=== PATIENT | male | born 1990 | race Two or more races ===

== ENCOUNTER 2021-01-28 15:41 | Outpatient (CLI) | payer OTHER, SELFPAY ==
--- NOTE | ~2021-01-28 | XR_ITS ---
EXAMINATION: XR toe 1st LT min 2V INDICATION: Left first toe pain TECHNIQUE: Three views of the left first toe are obtained. COMPARISON: None available FINDINGS: There is moderate osteoarthritis of the first metatarsophalangeal joint. No fracture is sergio ntified. The soft tissues are unremarkable. IMPRESSION: 1. Moderate osteoarthritis of the first metatarsophalangeal joint. Reviewed, dictated and finalized at location A.
--- NOTE | ~2021-01-28 | XR_ITS ---
EXAMINATION: XR knee RT 3V DATE: 01/28/2021 16:28 INDICATION: Right knee pain TECHNIQUE: Three views of the right knee were obtained. COMPARISON: 04/14/2011 FINDINGS: Alignment is normal. No fracture or osteochondral lesion. There is mild tricompartmental os teoarthritis characterized by tiny marginal osteophytes. No joint effusion/synovitis. Soft tissues a re unremarkable. IMPRESSION: 1. No acute osseous abnormality. Reviewed, dictated and finalized at location A.
== END 2021-01-28 15:42 ==
DX: S83.241A Other tear of medial meniscus, current injury, right knee, initial encounter (principal); X58.XXXA Exposure to other specified factors, initial encounter; M19.072 Primary osteoarthritis, left ankle and foot
CPT/HCPCS: 73562; 73660

== ENCOUNTER 2021-04-08 11:57 | Emergency (ER) | payer OTHER, SELFPAY ==
[2021-04-08 12:16] VITALS: BP 129/73; PULSE 70; RESP 16; TEMP 37.1; O2SAT 100
--- NOTE | 2021-04-08 12:21 | ED.MALEGU ---
HPI - Male Genitourinary General Chief complaint: Urogenital-Male Stated complaint: STD check Time Seen by Provider: 04/08/21 12:21 Source: patient and RN notes reviewed Mode of arrival: ambulatory Limitations: no limitations History of Present Illness HPI Narrative: 31-year-old male presents to the [facility] requesting an STD check for chlamydia, gonorrhea and trichomonas. patient states that he has no concern for anything else, Had testing before from the [facility] [place]. Patient first reports that I am here for my yearly check. Patient at first denied any symptoms. When he asked about treatment, This AD OPERATIONS ASSOCIATE explained we typically do not treat without dx or symptoms. Patient at that time stated that he had burning with urination and a cyst in his testicle. Patient reports that he was just discharged from the [facility] [place]. Patient was told when he was from the that he needed to follow-up for a cyst on his testicles and a brown area he was told was a mole. MD Complaint: dysuria Related Data Sexually active: Yes Home Medications Medication Instructions Recorded Confirmed vahea root extract 300 mg PO DAILY 04/08/21 04/08/21 Allergies Allergy/AdvReac Type Severity Reaction Status Date / Time No Known Allergies Allergy Verified 04/08/21 12:21 Review of Systems Review of Systems: All systems reviewed & are unremarkable except as noted in HPI and below Constitutional: Constitutional: Reports no additional constitutional complaints, Denies body ache(s) and Denies chills ENT: Reports system reviewed and no additional complaints, except as documented Cardiovascular: Cardiovascular: Reports no additional cardiovascular complaints Respiratory: Respiratory: Reports no additional respiratory complaints Gastrointestinal: Gastrointestinal: Reports no additional gastrointestinal complaints and Denies abdominal pain Genitourinary: Genitourinary: Reports as per HPI, Denies genital lesions, Denies genital pain, Reports dysuria, Denies flank pain, Denies scrotal swelling, Denies testicular pain, Denies urinary frequency, Denies urinary hesitancy and Denies urinary urgency Musculoskeletal: Musculoskeletal: Reports no additional musculoskeletal complaints and Denies back pain Integumentary/Breasts: Skin/Breast: Reports system reviewed and no additional complaints, except as docu Neurologic: Reports system reviewed and no additional complaints, except as documented Psychiatric: Psychiatric: Reports no additional psychiatric complaints Endocrine: Endocrine: Reports no additional endocrine complaints Allergic/Immunologic: Allergic/Immunologic: Reports no additional allergic/immunologic complaints PMFSH Comments At the time of my signature, I reviewed and agree with the nursing past medical, surgical, social, and family history. There is no relevant family history pertinent to the patient complaint. Exam Const: General: cooperative, healthy appearing, comfortable, no acute distress, well developed, alert and awake Nutritional Appearance: average body habitus Orientation/consciousness: patient oriented x3 Limitations: no limitations HENMT: Head: normal to inspection Ears: hearing grossly normal bilaterally General nose exam: Normal external nose present Face and sinus: normal facial exam Eyes: General: appearance normal, both eyes and all related structures Alignment and Position: alignment normal Neck: Neck: normal visual inspection, full ROM, no lymphadenopathy, no meningeal signs and trachea midline Chest: Chest palpation & inspection: normal inspection of the chest Resp: Effort & Inspection: normal respiratory effort and able to speak in complete sentences Cardio: Rate: regular rate Rhythm: regular rhythm GI: Inspection: normal to inspection GI Palp: No abdominal tenderness : Male General Exam: Yes normal external exam and No erythema Penis: Yes normal penis Scrotum: scrotum normal Testes: T
[2021-04-08] MEDS: cefTRIAXone 250 MG VIAL 500 MG IM (13:03)
[2021-04-08] MEDS: LIDOCAINE HCL 1% LOCAL INJ 20 ML VIAL IM (13:03)
== END 2021-04-08 13:27 | disposition home or self-care (01) ==
PROVIDERS: Emergency Provider Nurse Practitioner
DX: Z71.1 Person with feared health complaint in whom no diagnosis is made (principal); R30.0 Dysuria; J45.909 Unspecified asthma, uncomplicated
CPT/HCPCS: 81003; 87491; 87591; 87661; 96372; 99203; G0463; J0696

== ENCOUNTER 2022-07-10 13:34 | Emergency (ER) | payer BC, OTHER, SELFPAY ==
--- NOTE | ~2022-07-10 | XR_ITS ---
EXAMINATION: XR knee LT min 4V DATE: 07/10/2022 13:51 INDICATION: Left knee pain. Injury. TECHNIQUE: 4 views of left knee were obtained. COMPARISON: None. FINDINGS: Bone alignment is normal. No fracture. There is mild tricompartmental osteoarthritis charac terized by tiny osteophytes. No joint space narrowing. No knee joint effusion. IMPRESSION: 1. Mild left knee osteoarthritis. Reviewed, dictated and finalized at location A.
[2022-07-10 13:36] VITALS: BP 134/72; PULSE 76; RESP 16; TEMP 36.5; O2SAT 100
--- NOTE | 2022-07-10 13:55 | ED.LOWEXIN ---
HPI - Extremity Injury (Lower) General Chief Complaint: Extremity Injury, Lower Stated Complaint: left knee injury Time Seen by Provider: 07/10/22 13:55 History of Present Illness HPI Narrative: Patient is a 32-year-old male presenting with left knee pain. Patient states that he was cleaning the pool yesterday when he slipped and fell onto his left knee. States that he also hit his right thigh. States that he has been icing the knee since the injury but he continues to have significant pain. States that it is especially painful with ambulation. States that he took ibuprofen with minimal relief. Denies further injury or complaint. Related Data Home Medications Medication Instructions Recorded Confirmed No Home Medications 07/10/22 07/10/22 Allergies Allergy/AdvReac Type Severity Reaction Status Date / Time No Known Allergies Allergy Verified 07/10/22 13:37 Review of Systems Review of Systems: All systems reviewed & are unremarkable except as noted in HPI and below Exam Narrative: GENERAL: Well-appearing, well-nourished, and in no acute distress. HEAD: Normocephalic, atraumatic. EYES: PERRLA and EOMI. ENT: Nares clear, no rhinorrhea or epistaxis. Mucous membranes moist. NECK: Supple. CHEST: Clear to auscultation. No respiratory distress. HEART: Regular rate and rhythm. No murmur heard. Normal peripheral pulses. ABDOMEN: Soft, nontender, nondistended, normal active bowel sounds. EXTREMITIES: Normal range of motion. No edema. SKIN: Abrasions to L knee with associated tenderness NEURO: No focal deficits. Alert and oriented x3. PSYCH: Normal mood and affect. Course Vital Signs Vital signs: Vital Signs Temperature 97.7 F 07/10/22 13:36 Pulse Rate 76 07/10/22 13:36 Respiratory Rate 16 07/10/22 13:36 Blood Pressure 134/72 07/10/22 13:36 Pulse Oximetry 100 07/10/22 13:36 Temperature 97.7 F 07/10/22 13:36 Pulse Rate 76 07/10/22 13:36 Respiratory Rate 16 07/10/22 13:36 Blood Pressure 134/72 07/10/22 13:36 Pulse Oximetry 100 07/10/22 13:36 MDM - Extremity Injury (Lower) MDM Narrative Medical decision making narrative: Patient is a 32-year-old male presenting with left knee injury. Vitals within normal limits. Patient is well-appearing and in no acute distress. Exam is remarkable for some abrasions over the left knee with associated tenderness. X-ray shows no acute abnormalities. There is evidence of mild arthritis. Discussed appropriate supportive care with the patient. Patient states that he has crutches at home that he can use for the next several days. Advised follow-up with orthopedics as needed. Appropriate return precautions given. Patient discharged in stable condition. Critical Care Time Critical Care Time Critical Care Time: No Discharge Plan Discharge Clinical Impression: Knee pain, left, Abrasion of knee, left Patient Disposition: Home, Self-Care Condition: Stable Instructions: Antibiotic Form, Knee Pain (ED) Additional Instructions: Please alternate between Tylenol and ibuprofen for pain control. Prescriptions: No Action No Home Medications Follow-up/Referrals: Jim Orellana DO [Physician] - Sahil Austin MD [Physician] - UNKNOWN,DOCTOR [Non-Staff] - Stand Alone Forms: Work/School Release IP
== END 2022-07-10 14:20 | disposition home or self-care (01) ==
PROVIDERS: Emergency Provider Emergency Medicine
DX: S80.212A Abrasion, left knee, initial encounter (principal); M17.12 Unilateral primary osteoarthritis, left knee; W01.0XXA Fall on same level from slipping, tripping and stumbling without subsequent striking against object, initial encounter
CPT/HCPCS: 73564; 99283

== ENCOUNTER 2022-08-19 12:26 | Outpatient (CLI) | payer BC, OTHER, SELFPAY ==
--- NOTE | ~2022-08-19 | MR_ITS ---
EXAMINATION: MR knee LT wo con DATE: 08/19/2022 13:49 INDICATION: Left knee pain. TECHNIQUE: Magnetic resonance imaging (MRI) of the left knee was performed without intravenous contra st. Sequences included axial PD-weighted FS FSE, coronal PD-weighted FSE and PD-weighted FS FSE, sagi ttal PD-weighted FSE, and sagittal T2-weighted FS FSE. COMPARISON: Radiographs 07/10/2022 FINDINGS: Medial compartment: Medial meniscus is normal. Medial compartment cartilage is normal. Lateral compartment: Lateral meniscus is normal. Tibial cartilage is normal. There is full-thickness cartilage loss of fem oral condyle involving the central articular surface in an area measuring 10 x 5 mm with intra-articu lar osteophyte. Patellofemoral compartment: Patellar cartilage is normal. Trochlear cartilage is normal. Ligaments and tendons: The anterior and posterior cruciate ligaments are normal. There is edema around medial collateral lig ament, consistent with mild sprain. Lateral collateral ligament complex is normal. The patellar tendo n is normal. Fluid: There is a small knee joint effusion. There is trace fluid in a Small's cyst. IMPRESSION: 1. Mild sprain of medial collateral ligament (grade 1). 2. Focal severe chondrosis of lateral femoral condyle. 3. Small knee joint effusion. Reviewed, dictated and finalized at location A.
== END 2022-08-19 12:27 | disposition home or self-care (01) ==
PROVIDERS: Visit Provider Orthopaedic Surgery
DX: S83.412A Sprain of medial collateral ligament of left knee, initial encounter (principal); M22.2X2 Patellofemoral disorders, left knee; M25.462 Effusion, left knee
CPT/HCPCS: 73721

== ENCOUNTER 2023-07-21 11:30 | Outpatient (CLI) | payer BC, OTHER, SELFPAY ==
[2023-07-21 16:36] LABS: Basophils Absolute Auto 0.1 K/mm3 (0.0-0.1); Basophils Percent Auto 1.1 % (0.2-1.2); Eosinophils Absolute Auto 0.3 K/mm3 (0-0.3); Eosinophils Percent Auto 6.4 % (0-4.4); Hematocrit 46.7 % (42.0-52.0); Hemoglobin 15.6 g/dL (14.0-18.0); Immature Granulocyte Absolute 0.01 K/mm3 (0.00-0.031); Immature Granulocyte Percent A 0.2 % (0-0.5); Lymphocytes Absolute Auto 1.47 K/mm3 (0.9-3.2); Lymphocytes Percent Auto 31.3 % (18.3-44.2); Mean Corpuscular HGB Conc 33.4 g/dl (32-36); Mean Corpuscular Hemoglobin 31.3 pg (26-34); Mean Corpuscular Volume 93.8 fl (80-100); Mean Platelet Volume 11.1 fl (7.4-10.4); Monocytes Absolute Auto 0.5 K/mm3 (0.1-0.6); Monocytes Percent Auto 10.7 % (2.6-8.5); Neutrophils Absolute Auto 2.4 K/mm3 (1.3-6.7); Neutrophils Percent Auto 50.3 % (45.5-73.1); Platelet Count Result 218 k/mm3 (150-375); Red Blood Count 4.98 M/mm3 (4.6-6.20); Red Cell Distribution Width 12.8 % (11.5-14.5); White Blood Count 4.7 K/mm3 (4.5-10.0)
[2023-07-21 20:11] LABS: Alanine Aminotransferase 24 U/L (6-50); Albumin Level 4.5 g/dL (3.5-5.1); Alkaline Phosphatase 58 U/L (38-126); Anion Gap 4 mmol/L (8-16); Aspartate Amino Transferase 33 U/L (17-59); Bilirubin,Total 1.1 mg/dL (0.2-1.3); Blood Urea Nitrogen 13 mg/dL (9-20); Calcium 9.2 mg/dL (8.4-10.2); Carbon Dioxide 30 mmol/L (22-30); Chloride 103 mmol/L (98-107); Cholesterol 226 mg/dL (0-200); Estimated Glomerular Filt Rate > 60; Glucose 87 mg/dL (65-110); HDL Direct 53 mg/dL; Potassium 4.1 mmol/L (3.4-5.0); Sodium 137 mmol/L (137-145); Triglycerides 114 mg/dL (<150)
[2023-07-21 20:21] LABS: LDL Cholesterol Direct 128 mg/dL
[2023-07-25 17:32] LABS: Testosterone Free 127.2 pg/mL (35.0-155.0); Testosterone Total 563 ng/dL (250-1100)
== END 2023-07-21 11:31 | disposition home or self-care (01) ==
LOC: ANHGOSHLAB 11:33
PROVIDERS: Visit Provider Clinical Nurse Specialist
DX: F41.9 Anxiety disorder, unspecified (principal); R73.9 Hyperglycemia, unspecified; E55.9 Vitamin D deficiency, unspecified; Z13.228 Encounter for screening for other metabolic disorders; Z13.220 Encounter for screening for lipoid disorders; R53.83 Other fatigue
CPT/HCPCS: 36415; 80053; 80061; 83036; 84402; 84403; 84443; 85025

== ENCOUNTER 2023-09-22 12:05 | Emergency (ER) | payer BC, OTHER, SELFPAY ==
[2023-09-22 12:14] VITALS: BP 120/78; PULSE 68; RESP 16; TEMP 36.9; O2SAT 98
--- NOTE | 2023-09-22 12:18 | ED.URI ---
HPI - URI/Sore Throat General Chief Complaint: Upper Respiratory Infection Stated Complaint: COUGH/SOB Time Seen by Provider: 09/22/23 12:20 Source: patient and RN notes reviewed Mode of arrival: ambulatory Limitations: no limitations History of Present Illness HPI Narrative: 33-year-old male presents with concern for productive barking cough for 3 days. Reports history of asthma, he last used his inhaler overnight. He reports he has had some nasal congestion rhinorrhea as well. MD elicited complaint: cough Related Data Home Medications Medication Instructions Recorded Confirmed albuterol sulfate 90 mcg/actuation 1 puff inhalation Q4H PRN Wheezing 09/13/23 09/22/23 aerosol inhaler Allergies Allergy/AdvReac Type Severity Reaction Status Date / Time morphine Allergy Mild Nausea Verified 09/22/23 12:12 mushrooms Allergy Unknown unknown Uncoded 09/22/23 12:12 Review of Systems Review of Systems: CONSTITUTIONAL: Denies malaise, chills, sweats, or fever. EYES: Denies visual changes, redness, or discharge. ENT: Reports rhinorrhea, congestion. Denies sinus pain, otalgia and sore throat. CARDIOVASCULAR: Denies chest pain, palpitations, or edema. RESPIRATORY: Reports barking cough. Denies dyspnea. GASTROINTESTINAL: Denies abdominal pain, nausea, vomiting, diarrhea SKIN: Denies rash or itching. MUSCULOSKELETAL: Denies myalgia. NEUROLOGIC: Denies headache. All systems reviewed & are unremarkable except as noted in HPI and below PMFSH Past Medical History Medical History Anxiety Asthma Sprain of medial collateral ligament of left knee Surgical History Surgical History History of dental surgery History of foot surgery (~08/2020) History of repair of anterior cruciate ligament of right knee Family History Family History Sibling Cancer Depression Mother Depression Other Brain aneurysm Social History Social History Smoking status: Never smoker Alcohol intake: current Alcohol use details: Occasionally Substance use: never Substance use type: does not use Lack of Transportation: No Lack of Food: Never True Current Housing: I Have Housing Concerned About Future Housing: No Difficulty Paying Gas/Electric Bills: No Difficulty Paying for Meds: No Currently Unemployed: No Education: Bachelor's Degree Difficulty w/ Childcare or Family Care: No Occupation/Education: occupation Gender identity (if verbalized by the patient): Male Comments At time of signature, agree with nursing past medical, surgical, social and family history. There is no relevant family history pertinent to the presenting complaint Exam Narrative: GENERAL: Well-appearing, well-nourished, and in no acute distress. HEAD: Normocephalic EYES: PERRLA, conjunctivae clear ENT: Nares clear, turbinates edematous and erythematous, clear discharge. Mucous membranes moist. TM pearly galarza with sharp light reflex bilaterally; no tragal tenderness. Oropharynx not erythematous without lesions. Tonsils not enlarged and without exudate, no drooling, no hoarseness, no trismus, uvula midline. NECK: Supple. No lymphadenopathy CHEST: Clear to auscultation, breath sounds equal. No wheezing, rhonchi, rales, or stridor. No respiratory distress, speaks in full sentences. HEART: Regular rate and rhythm. No murmur heard. SKIN: Warm, dry, no rash. NEURO: Alert and oriented x3. PSYCH: Normal mood and affect Course Course Emergency Course: Patient is aware of diagnosis, understands and agrees to treatment plan. Anticipatory guidance given. Patient agrees to follow-up as directed and is aware of reasons to seek care at the emergency department. Portions of this record may have been created with voice recogni
== END 2023-09-22 12:31 | disposition home or self-care (01) ==
PROVIDERS: Emergency Provider Nurse Practitioner; PCP Clinical Nurse Specialist
DX: J40 Bronchitis, not specified as acute or chronic (principal); J45.909 Unspecified asthma, uncomplicated
CPT/HCPCS: 99213; G0463

== ENCOUNTER → 2023-09-29 08:11 | Outpatient (CLI) | payer BC, OTHER, SELFPAY ==
--- NOTE | ~2023-09-29 | MR_ITS ---
MRA HEAD History: Headache Technique: 3D time of flight MRA of the head is performed. COMPARISON: 02/04/2013 Findings: The right and left distal vertebral arteries and the basilar and posterior cerebral arterie s are normal. Right and left distal internal carotid arteries and anterior and middle cerebral arteri es are normal. There is no aneurysm, stenosis, or occlusion. Impression: No occlusion, stenosis, or aneurysm. Reviewed, dictated and finalized at location M. H PATTERN MAKER Impression: No occlusion, stenosis, or aneurysm.
--- NOTE | ~2023-09-29 | MR_ITS ---
EXAMINATION: MR brain/brain stem wo con DATE: 09/29/2023 09:18 HEALTH CARE MARKETING MANAGER INDICATION: Headaches. Light sensitivity. TECHNIQUE: Magnetic resonance imaging (MRI) of the brain and brainstem was performed without intraven ous contrast. Sequences included sagittal and axial T1-weighted SE, axial diffusion-weighted FS SE, a xial T2*-weighted GRE, axial T2-weighted FLAIR Propeller, and axial T2-weighted Propeller. Apparent d iffusion coefficient (ADC) maps were created. COMPARISON: CT dated 12/27/2009 FINDINGS: There is metallic artifact anteriorly. The brain volume and ventricular system are within n ormal limits. The brain parenchymal signal intensity pattern and galarza/white matter is normal and the re is no evidence of hemorrhage, space occupying masses or infarctions. The flow signal voids of the major arterial structures about the [place] and within the madi r dural venous sinuses appear grossly unremarkable and patent. The seventh and eighth cranial nerve complexes are normal. The mid sagittal image demonstrates a normal craniovertebral junction and alke us callosum. The paranasal sinuses are grossly unremarkable. IMPRESSION: 1: Unremarkable MRI of the brain. No acute intracranial abnormality. Reviewed, dictated and finalized at location B. TH CARE MARKETING MANAGER
== END ==
PROVIDERS: PCP Clinical Nurse Specialist; Visit Provider Clinical Nurse Specialist
DX: R51.9 Headache, unspecified (principal); Z82.49 Family history of ischemic heart disease and other diseases of the circulatory system
CPT/HCPCS: 70544; 70551

== ENCOUNTER 2023-09-29 10:39 | Outpatient (CLI) | payer BC, OTHER, SELFPAY ==
--- NOTE | 2023-10-04 11:00 | WPDHOLTEREM ---
Holter/Event Monitor Holter/Event Monitor Date of procedure: 10/04/23 Holter/Event Procedure: 48 Hr Holter Monitor Diagnosis: Palpitations Indications: Palpitations Image/Tracing Quality: Good Finding: A total of 47 hours and 59 minutes was recorded and analyzed Underlying sinus rhythm with heart rate variability between 43 and 120 beats per minute with an average heart rate of 68 beats per minute. Low frequency ventricular ectopy totaling 17 beats. This consisted of 1 ventricular couplet, and isolated PVCs. No sustained or nonsustained runs of ventricular arrhythmia Low frequency supraventricular ectopy totaling 11 beats. These were all isolated premature atrial contractions. No atrial fibrillation, heart block or pauses. No patient triggered events recorded. Longest RR interval was 1.5 seconds. Conclusion: 1. Unremarkable 48 hour Holter monitor showing sinus rhythm with average heart rate 68 beats per minute 2. Low frequency of ventricular and supraventricular ectopy but without complex arrhythmia, heart block or pauses 3. no patient triggered events
== END 2023-09-29 10:40 | disposition home or self-care (01) ==
LOC: ANHCARD 10:42
PROVIDERS: PCP Clinical Nurse Specialist; Visit Provider Clinical Nurse Specialist
DX: R00.2 Palpitations (principal)
CPT/HCPCS: 93225; 93226

== ENCOUNTER 2023-11-09 12:46 | Emergency (ER) | payer BC, OTHER, SELFPAY ==
[2023-11-09 13:00] VITALS: BP 117/74; PULSE 70; RESP 16; TEMP 36.9; O2SAT 98
--- NOTE | 2023-11-09 13:16 | ED.URI ---
HPI - URI/Sore Throat General Chief Complaint: Upper Respiratory Infection Stated Complaint: COUGH/BODY ACHES/FEVER/NAUSEA Time Seen by Provider: 11/09/23 13:02 Source: patient and RN notes reviewed Mode of arrival: ambulatory Limitations: no limitations History of Present Illness HPI Narrative: Patient presents today complaining of 2 day history of chills, nausea, decreased appetite, cough, fever up to 101, sore throat, nasal congestion. He has been taking Tylenol and Benadryl with some relief. Related Data Home Medications Medication Instructions Recorded Confirmed albuterol sulfate 90 mcg/actuation 1 puff inhalation Q4H PRN Wheezing 09/13/23 11/09/23 aerosol inhaler Allergies Allergy/AdvReac Type Severity Reaction Status Date / Time morphine Allergy Mild Nausea Verified 11/09/23 12:56 mushrooms Allergy Unknown unknown Uncoded 09/22/23 12:12 Review of Systems Review of Systems: CONSTITUTIONAL: Denies body aches, or sweats.+ fever, chills EYES: Denies visual changes, redness, or discharge. ENT: Denies rhinorrhea, or otalgia.+ congestion, sore throat CARDIOVASCULAR: Denies chest pain, palpitations, or edema. RESPIRATORY: Denies dyspnea.+ cough GASTROINTESTINAL: Denies abdominal pain, vomiting, or diarrhea.+ nausea, decreased appetite GENITOURINARY: Denies dysuria or hematuria. SKIN: Denies rash, itching, or wounds. MUSCULOSKELETAL: Denies back pain, joint pain, or myalgia. NEUROLOGIC: Denies headache, numbness, tingling, or weakness. PSYCH: Denies depression or anxiety. [facility] Past Medical History Medical History Anxiety Asthma Sprain of medial collateral ligament of left knee Surgical History Surgical History History of dental surgery History of foot surgery (~08/2020) History of repair of anterior cruciate ligament of right knee Family History Family History Sibling Depression Mother Depression Other Brain aneurysm Social History Social History Smoking status: Never smoker Alcohol intake: current Alcohol use details: Occasionally Substance use: never Substance use type: does not use Lack of Transportation: No Lack of Food: Never True Current Housing: I Have Housing Concerned About Future Housing: No Difficulty Paying Gas/Electric Bills: No Difficulty Paying for Meds: No Currently Unemployed: No Education: Bachelor's Degree Difficulty w/ Childcare or Family Care: No Occupation/Education: occupation Gender identity (if verbalized by the patient): Male Comments At time of signature, I have reviewed and agree with nursing past medical, surgical, social and family history unless otherwise noted. Please see nursing chart for further information. There is no relevant family history pertinent to the presenting complaint Exam Narrative: GENERAL: Well-appearing, well-nourished, and in no acute distress. HEAD: Normocephalic, atraumatic. EYES: EOMI. No redness or drainage. Conjunctivae normal. ENT: Mucous membranes pink and moist. Nares mildly congested. No rhinorrhea. TMs normal bilaterally. Throat normal. Uvula midline. NECK: Normal AROM. Supple. No lymphadenopathy. CHEST: No respiratory distress. Clear to auscultation. HEART: Regular rate and rhythm. No murmur appreciated. EXTREMITIES: Normal range of motion. No edema. SKIN: Warm, dry, no rash. Capillary refill normal. Normal skin turgor. NEURO: No focal deficits. Alert and oriented x3. Gait steady. PSYCH: Normal affect. No signs of depression or anxiety. Course Course Level of Care: Express Care Visit Vital Signs Vital signs: Vital Signs Temperature 98.4 F 11/09/23 13:00 Pulse Rate 70 11/09/23 13:00 Respiratory Rate 16 11/09/23 13
== END 2023-11-09 13:30 | disposition home or self-care (01) ==
PROVIDERS: Emergency Provider Nurse Practitioner; PCP Clinical Nurse Specialist
DX: U07.1 COVID-19 (principal); J45.909 Unspecified asthma, uncomplicated
CPT/HCPCS: 87426; 87804; 99213; G0463

== ENCOUNTER 2024-05-13 10:10 | Outpatient (CLI) | payer BC, OTHER, SELFPAY ==
--- NOTE | ~2024-05-13 | US_ITS ---
EXAMINATION: US scrotum doppler DATE: 05/13/2024 10:35 INDICATION: N50.82 - Scrotal pain . TECHNIQUE: Grayscale and Doppler ultrasound images of the testes were obtained. COMPARISON: None. FINDINGS: The right testis measures 4.1 x 2.7 x 1.9 cm. The left testis measures 3.6 x 2.7 x 2.0 cm. No testicular mass. There is normal vascular flow to both testes. The right epididymis contains a 5 m m simple epididymal cyst with normal epididymal vascular flow. The left epididymis is normal with nor mal vascular flow. There is no varicocele or hydrocele. IMPRESSION: Unremarkable scrotal ultrasound findings. Reviewed, dictated and finalized at location K.
== END 2024-05-13 10:11 ==
LOC: GOSHIMG 10:10
PROVIDERS: PCP Clinical Nurse Specialist; Visit Provider Clinical Nurse Specialist
DX: N50.82 Scrotal pain (principal)
CPT/HCPCS: 76870; 93976

== ENCOUNTER 2024-05-31 10:10 | Emergency (ER) | payer BC, OTHER, SELFPAY ==
[2024-05-31 10:20] VITALS: BP 127/72; PULSE 75; RESP 18; TEMP 36.7; O2SAT 98
--- NOTE | 2024-05-31 11:31 | ED.URI ---
HPI - URI/Sore Throat General Chief Complaint: Upper Respiratory Infection Stated Complaint: CHEST PAIN/SOB/COUGH Time Seen by Provider: 05/31/24 11:24 Source: patient and RN notes reviewed Mode of arrival: ambulatory Limitations: no limitations History of Present Illness HPI Narrative: Patient presents today complaining of a intermittent shortness of breath, cough, upper chest discomfort. He has been using his albuterol inhaler, which does provide relief of all symptoms. Reports that he had some nausea, vomiting, chills a few days ago, but these symptoms have since resolved themselves. The respiratory symptoms started yesterday. History of asthma. Related Data Home Medications Medication Instructions Recorded Confirmed albuterol sulfate 90 mcg/actuation 1 puff inhalation Q4H PRN Wheezing 09/13/23 05/08/24 aerosol inhaler Allergies Allergy/AdvReac Type Severity Reaction Status Date / Time morphine Allergy Mild Nausea Verified 05/31/24 11:11 mushrooms Allergy Unknown unknown Uncoded 05/31/24 11:11 Review of Systems Review of Systems: CONSTITUTIONAL: Denies body aches, fever, chills, or sweats. EYES: Denies visual changes, redness, or discharge. ENT: Denies rhinorrhea, congestion, sore throat, or otalgia. CARDIOVASCULAR: Denies chest pain, palpitations, or edema. RESPIRATORY:+ cough, chest wall pain, shortness of breath GASTROINTESTINAL: Denies abdominal pain, nausea, vomiting, or diarrhea. GENITOURINARY: Denies dysuria or hematuria. SKIN: Denies rash, itching, or wounds. MUSCULOSKELETAL: Denies back pain, joint pain, or myalgia. NEUROLOGIC: Denies headache, numbness, tingling, or weakness. PSYCH: Denies depression or anxiety. [facility] Past Medical History Medical History Anxiety Asthma Sprain of medial collateral ligament of left knee Surgical History Surgical History History of dental surgery History of foot surgery (~08/2020) History of repair of anterior cruciate ligament of right knee Family History Family History Sibling Depression Mother Depression Other Brain aneurysm Social History Social History Smoking status: Never smoker Alcohol intake: current Alcohol use details: Occasionally Substance use: never Substance use type: does not use Lack of Transportation: No Lack of Food: Never True Current Housing: I Have Housing Concerned About Future Housing: No Difficulty Paying Gas/Electric Bills: No Difficulty Paying for Meds: No Currently Unemployed: No Education: Bachelor's Degree Difficulty w/ Childcare or Family Care: No Occupation/Education: occupation Gender identity (if verbalized by the patient): Male Comments At time of signature, I have reviewed and agree with nursing past medical, surgical, social and family history unless otherwise noted. Please see nursing chart for further information. There is no relevant family history pertinent to the presenting complaint Exam Narrative: GENERAL: Well-appearing, well-nourished, and in no acute distress. HEAD: Normocephalic, atraumatic. EYES: EOMI. No redness or drainage. Conjunctivae normal. ENT: Mucous membranes pink and moist. Nares clear. No rhinorrhea. TMs normal bilaterally. Throat normal. Uvula midline. NECK: Normal AROM. Supple. No lymphadenopathy. CHEST: No respiratory distress. Clear to auscultation. Upper chest discomfort with palpation HEART: Regular rate and rhythm. No murmur appreciated. EXTREMITIES: Normal range of motion. No edema. SKIN: Warm, dry, no rash. Capillary refill normal. Normal skin turgor. NEURO: No focal deficits. Alert and oriented x3. Gait steady. PSYCH: Normal affect. No signs of depression or anxiety. Course Co
== END 2024-05-31 11:38 | disposition home or self-care (01) ==
PROVIDERS: Emergency Provider Nurse Practitioner; PCP Clinical Nurse Specialist
DX: B34.9 Viral infection, unspecified (principal); J45.901 Unspecified asthma with (acute) exacerbation; J45.909 Unspecified asthma, uncomplicated
CPT/HCPCS: 99213; G0463

== ENCOUNTER 2024-08-16 08:35 | Outpatient (CLI) | payer BC, OTHER, SELFPAY ==
[2024-08-16 16:51] LABS: Basophils Percent Auto 0.9 % (0.2-1.2); Eosinophils Absolute Auto 0.3 K/mm3 (0-0.3); Eosinophils Percent Auto 5.4 % (0-4.4); Hemoglobin 16.3 g/dL (14.0-18.0); Immature Granulocyte Absolute 0.01 K/mm3 (0.00-0.031); Immature Granulocyte Percent A 0.2 % (0-0.5); Lymphocytes Absolute Auto 1.73 K/mm3 (0.9-3.2); Lymphocytes Percent Auto 37.4 % (18.3-44.2); Mean Corpuscular HGB Conc 33.3 g/dl (32-36); Mean Corpuscular Hemoglobin 31.4 pg (26-34); Mean Corpuscular Volume 94.4 fl (80-100); Mean Platelet Volume 11.6 fl (7.4-10.4); Monocytes Absolute Auto 0.4 K/mm3 (0.1-0.6); Monocytes Percent Auto 9.5 % (2.6-8.5); Neutrophils Absolute Auto 2.2 K/mm3 (1.3-6.7); Neutrophils Percent Auto 46.6 % (45.5-73.1); Platelet Count Result 242 k/mm3 (150-375); Red Blood Count 5.19 M/mm3 (4.6-6.20); White Blood Count 4.6 K/mm3 (4.5-10.0)
[2024-08-16 16:55] LABS: Add Urine Microscopic? NO; Appearance Urine Clear (Clear); Bilirubin Urine Negative (Negative); Blood Urine Negative (Negative); Color Urine Yellow (Yellow); Glucose Urine UA Negative (Negative); Ketones Urine Trace mg/dL (Negative); Leukocyte Esterase Ur Negative LEU/UL (Negative); Nitrate Urine Negative (Negative); Protein Urine Negative (Negative); Specific Grav Ur 1.023 (1.001-1.035)
[2024-08-16 17:12] LABS: Alanine Aminotransferase 23 U/L (6-50); Albumin Level 4.6 g/dL (3.5-5.1); Alkaline Phosphatase 67 U/L (38-126); Anion Gap 10 mmol/L (4-12); Aspartate Amino Transferase 29 U/L (17-59); Bilirubin,Total 1.2 mg/dL (0.2-1.3); Blood Urea Nitrogen 11 mg/dL (9-20); Calcium 9.5 mg/dL (8.4-10.2); Carbon Dioxide 27 mmol/L (22-30); Chloride 103 mmol/L (98-107); Cholesterol 227 mg/dL (0-200); Estimated Glomerular Filt Rate > 60; Glucose 73 mg/dL (65-110); HDL Direct 51 mg/dL; Sodium 140 mmol/L (137-145); Triglycerides 91 mg/dL (<150)
[2024-08-16 17:17] LABS: Vitamin D 25 Hydroxy 18.7 ng/mL
[2024-08-16 17:23] LABS: LDL Cholesterol Direct 123 mg/dL
== END 2024-08-16 08:36 | disposition home or self-care (01) ==
LOC: ANHGOSHLAB 08:36
PROVIDERS: PCP Clinical Nurse Specialist; Visit Provider Clinical Nurse Specialist
DX: Z13.220 Encounter for screening for lipoid disorders (principal); Z13.228 Encounter for screening for other metabolic disorders; N50.82 Scrotal pain; R00.2 Palpitations; E55.9 Vitamin D deficiency, unspecified; R73.9 Hyperglycemia, unspecified; F41.9 Anxiety disorder, unspecified
CPT/HCPCS: 36415; 80053; 80061; 81003; 82306; 84443; 85025

== ENCOUNTER 2024-10-08 15:14 | Emergency (ER) | payer BC, OTHER, SELFPAY ==
[2024-10-08 15:45] VITALS: BP 111/69; PULSE 106; RESP 16; TEMP 37.3; O2SAT 97
--- NOTE | 2024-10-08 16:23 | ED.GENADULT ---
HPI - General Adult General Chief complaint: Upper Respiratory Infection Stated complaint: flu like symptoms Time Seen by Provider: 10/08/24 16:20 Source: patient, RN notes reviewed and old records reviewed Mode of arrival: ambulatory Limitations: no limitations History of Present Illness HPI narrative: 34-year-old male who presents to [facility] with complaints of 2 day history of abdominal pain above his umbilicus and nausea and vomiting and diarrhea since yesterday. Patient reports he has not had a known fever does state some ear pain and some sinus drainage. Patient reports that his diarrhea has been watery. Patient reports that his pain is sharp and rates pain at 7/10. MD complaint: nause and vomiting diarrhea and abdominal pain Onset (ago): day(s) (2) Location: abdomen Severity scale (1-10): 7 Quality: aching and sharp Pain Consistency: intermittent Associated symptoms: nausea/vomiting and other (diarrhea) Related Data Home Medications ?Medication ?Instructions ?Recorded ?Confirmed ?Last Taken ?Type buspirone 10 mg tablet mg 10/08/24 Unknown History trazodone 50 mg tablet mg 10/08/24 Unknown History venlafaxine 37.5 mg mg PO 10/08/24 Unknown History capsule,extended release 24 hr venlafaxine 75 mg capsule,extended mg PO 10/08/24 Unknown History release 24 hr Allergies Allergy/AdvReac Type Severity Reaction Status Date / Time morphine Allergy Mild Nausea Verified 08/16/24 08:04 mushrooms Allergy Unknown unknown Uncoded 08/16/24 08:04 Review of Systems Review of Systems: CONSTITUTIONAL: Reports malaise, no chills, sweats, or fever. EYES: Denies visual changes, redness, or discharge. ENT: Reports rhinorrhea, congestion,no sinus pain, bilateral otalgia and no sore throat. CARDIOVASCULAR: Denies chest pain, palpitations, or edema. RESPIRATORY: Reports no cough.? Denies dyspnea. GASTROINTESTINAL:reports abdominal pain above his umbilicus, nausea, vomiting, diarrhea SKIN: Denies rash or itching. MUSCULOSKELETAL: Denies myalgia. NEUROLOGIC: Denies headache. All systems reviewed & are unremarkable except as noted in HPI and below PMFSH Past Medical History Medical History Anxiety Asthma Sprain of medial collateral ligament of left knee Surgical History Surgical History History of dental surgery History of foot surgery (~08/2020) History of repair of anterior cruciate ligament of right knee Family History Family History Sibling Depression Mother Depression Other Brain aneurysm Social History Social History Smoking status: Never smoker Alcohol intake: current Alcohol use details: Occasionally Substance use: never Substance use type: does not use Lack of Transportation: No Lack of Food: Never True Current Housing: I Have Housing Concerned About Future Housing: No Difficulty Paying Gas/Electric Bills: No Difficulty Paying for Meds: No Currently Unemployed: No Education: Bachelor's Degree Difficulty w/ Childcare or Family Care: No Occupation/Education: occupation Gender identity (if verbalized by the patient): Male Comments At time of signature, agree with nursing past medical, surgical, social and family history. There is no relevant family history pertinent to the presenting complaint Exam Narrative: GENERAL: Well-appearing, well-nourished, and in some acute distress. HEAD: Normocephalic EYES: PERRLA, conjunctivae clear ENT: Nares clear, turbinates edematous and erythematous, clear discharge. Mucous membranes moist. TM pearly galarza with dull light reflex bilaterally; no tragal tenderness. Oropharynx erythematous without lesions. Tonsils not enlarged and without exudate, no drooling, no hoarseness, no trismus, uvula midline. NECK: Supple. No lymphadenopathy CHEST: Clear to auscultation, breath sounds equal. No wheezing, rhonchi, rales, or stridor. No respiratory distress, speaks in full sentences.SAO2 97% on room air ABDOMEN: Pain to abdomen above umbilicus with some rebound tenderness,no rigidity, no distention, bowel sounds hypoactive but decreased. HEART: Regular rate and rhythm. No murmur heard. SKIN: Warm, dry, no rash. N noEURO: Alert and oriented x3. PSYCH: Normal mood and affect Course Course Emergency Course: Patient is aware of diagnosis, understands and agrees to treatment plan.? Anticipatory guidance given.? Patient agrees to follow-up as directed and is aware of reasons to seek care at the emergency department. Portions of this record may have been created with voice recognition software Level of Care: Express Care Visit Vital Signs Vital signs: Vital Signs Temperature 37.3 C 10/08/24 15:45 Pulse Rate 106 H 10/08/24 15:45 Respiratory Rate 16 10/08/24 15:45 Blood Pressure 111/69 10/08/24 15:45 Pulse Oximetry 97 10/08/24 15:45 Temperature 37.3 C 10/08/24 15:45 Pulse Rate 106 H 10/08/24 15:45 Respiratory Rate 16 10/08/24 15:45 Blood Pressure 111/69 10/08/24 15:45 Pulse Oximetry 97 10/08/24 15:45 Reviewed Transfer Transfered to: [facility] Transportation: Other (private car) Transfer rationale: abdominal pain rates pain 7/10 above umbilicus with associated nausea vomiting and diarrhea, negative flu and COVID tests Accepting physician: Dr Leung Transfer comments: To [facility] Emergency room per private car for further evaluation of abdominal pain, instructed NPO. Medical Decision Making MDM Narrative Medical decision making narrative: 1632 Call placed to the ED at [facility] ER with condition report, VS, wave testing results and PMH reviewed with Dr Leung. He is agreeable to accept patient for transfer. Differential Diagnosis Differential Diagnosis: abdominal pain, nausea vomiting diarrhea viral syndrome, gastritis, appendicitis, enteritis, bowel obstruction Medical Records Medical records reviewed: Yes I reviewed the external patient's medical records. Vital Signs Vital Signs: Vital Signs Temperature 37.3 C 10/08/24 15:45 Pulse Rate 106 H 10/08/24 15:45 Respiratory Rate 16 10/08/24 15:45 Blood Pressure 111/69 10/08/24 15:45 Pulse Oximetry 97 10/08/24 15:45 Temperature 37.3 C 10/08/24 15:45 Pulse Rate 106 H 10/08/24 15:45 Respiratory Rate 16 10/08/24 15:45 Blood Pressure 111/69 10/08/24 15:45 Pulse Oximetry 97 10/08/24 15:45 reviewed Lab Data Lab results reviewed: Yes I reviewed the patient's lab results. Lab results narrative: Covid antigen negative, Influenza A negative, Influenza B negative Labs: Lab Results 10/08/24 Range/Units 16:37 POC Influenza A Ag Negative (Negative) POC Influenza B Ag Negative (Negative) POC SARS CoV-2 Ag Negative (Negative) Critical Care Time Critical Care Time Critical Care Time: No Discharge Plan Discharge Clinical Impression: Abdominal pain, acute, Nausea vomiting and diarrhea Patient Disposition: Acute Care Hospital Condition: Stable Patient Language: Latvian Prescriptions: No Action venlafaxine 37.5 mg capsule,extended release 24hr PO venlafaxine 75 mg capsule,extended release 24hr PO trazodone 50 mg tablet buspirone 10 mg tablet albuterol sulfate 90 mcg/actuation HFA aerosol inhaler 2 inh inhalation Q4-6H PRN (Reason: shortness of breath or wheezing) Qty: 8.5 0RF fluticasone propionate [Flonase Allergy Relief] 50 mcg/actuation spray,suspension 1 spray intranasal Q12H Qty: 16 0RF Rx Instructions: administer into each nostril ondansetron 4 mg tablet,disintegrating 4 mg PO Q8H PRN (Reason: nausea and vomiting) Qty: 10 0RF Follow-up/Referrals: Ruth Bobo AUXILIARY POWER EQUIPMENT OPERATOR-C [Primary Care Provider] - Time of Disposition: 16:37 Quality Vivian Coma Scale Eyes: Open Verbal: Oriented and Alert Motor: Follows Commands Vivian Coma Total Score: 15
[2024-10-08 16:40] LABS: EDCOVIDSCREEN Negative (Negative); EDINFLUASCREEN Negative (Negative); EDINFLUBSCREEN Negative (Negative)
== END 2024-10-08 16:32 | disposition short-term general hospital (02) ==
LOC: EXPGOSH 15:19
PROVIDERS: Emergency Provider Registered Nurse; PCP Clinical Nurse Specialist
DX: K52.9 Noninfective gastroenteritis and colitis, unspecified (principal); Z79.899 Other long term (current) drug therapy; Z20.822 Contact with and (suspected) exposure to COVID-19
CPT/HCPCS: 87426; 87804; 99212; G0463

== ENCOUNTER 2024-10-08 16:55 | Emergency (ER) | payer BC, OTHER, SELFPAY ==
[2024-10-08] VITALS (8 sets, daily range): BP systolic 108–123; BP diastolic 69–75; PULSE 78–97; RESP 16–17; TEMP 36.5–37; O2SAT 96–100
--- NOTE | ~2024-10-08 | CT_ITS ---
EXAMINATION: CT abdomen pelvis w con DATE: 10/08/2024 21:08 INDICATION: Abdominal pain. TECHNIQUE: Computed tomography (CT) of the abdomen and pelvis was performed with 100 mL Omnipaque 350 intravenous contrast. Automated exposure control and iterative reconstruction technique were employe d. The dose-length product was 1031.49 mGy-cm. COMPARISON: None. FINDINGS: The visualized portions of the lung bases demonstrate mild atelectasis. No pleural effusion . The heart size is normal. No pericardial effusion. The liver, gallbladder, spleen, pancreas, adrena l glands, and kidneys are normal. The appendix is normal. There is wall thickening of loops of ileum, consistent with enteritis. There are no dilated loops of bowel. There are no pathologically enlarged lymph nodes. There is trace ascites. There is no significant stenosis of celiac axis, superior mesen teric artery, or inferior mesenteric artery. There is mild thoracic spondylosis. IMPRESSION: 1. Enteritis. Reviewed, dictated and finalized at location A. NING AND DOCUMENTATION SPECIALIST IMPRESSION: 1. Enteritis.
--- NOTE | 2024-10-08 17:14 | ECG_ITS ---
Test Date: 2024-10-08 17:26:01 Measurements Intervals [place] Rate: 89 P: 35 WA: 155 QRS: 16 QRSD: 103 T: 27 QT: 311 QTc: 380 Interpretive Statements SINUS RHYTHM No previous ECG available for comparison Electronically Signed On 10-09-2024 14:18:40 [employer] by Carole Fisher M.D.
[2024-10-08] MEDS: ONDANSETRON HCL ODT 4 MG TABLET PO (17:28)
[2024-10-08 17:52] LABS: Basophils Percent Auto 0.4 % (0.2-1.2); Eosinophils Percent Auto 0.1 % (0-4.4); Hematocrit 48.2 % (42.0-52.0); Hemoglobin 16.5 g/dL (14.0-18.0); Immature Granulocyte Absolute 0.03 K/mm3 (0.00-0.031); Immature Granulocyte Percent A 0.3 % (0-0.5); Lymphocytes Absolute Auto 0.75 K/mm3 (0.9-3.2); Lymphocytes Percent Auto 8.2 % (18.3-44.2); Mean Corpuscular HGB Conc 34.2 g/dl (32-36); Mean Corpuscular Volume 90.4 fl (80-100); Mean Platelet Volume 10.7 fl (7.4-10.4); Monocytes Absolute Auto 0.9 K/mm3 (0.1-0.6); Monocytes Percent Auto 9.9 % (2.6-8.5); Neutrophils Absolute Auto 7.4 K/mm3 (1.3-6.7); Neutrophils Percent Auto 81.1 % (45.5-73.1); Platelet Count Result 220 k/mm3 (150-375); Red Blood Count 5.33 M/mm3 (4.6-6.20); Red Cell Distribution Width 12.8 % (11.5-14.5); White Blood Count 9.1 K/mm3 (4.5-10.0)
[2024-10-08 18:05] LABS: Lactic Acid Reflex 1.3 mmol/L (0.7-2.0)
--- NOTE | 2024-10-08 18:06 | ED_ITS ---
HPI - Abdominal Pain General Chief Complaint: Abdominal Pain Stated Complaint: abd pain, sent from Time Seen by Provider: 10/08/24 17:59 Source: patient Mode of arrival: ambulatory Limitations: no limitations History of Present Illness HPI narrative: This is a 34 year old male who presents to the ED for chief complaint of abdominal pain with N/V/D beginning last night. He was seen by urgent care today and referred over here for the abdominal pain. Patient states that he does have recent travel from [place] and he did fly for this. States that symptoms started couple days ago with sinus congestion and bilateral ear pain. Since then he has developed diffuse abdominal pain, N/V/D. Describes the diarrhea as watery. Endorses subjective fevers and chills. Denies chest pain, shortness of breath, leg swelling, palpitations, headache, syncope. Related Data Home Medications ?Medication ?Instructions ?Recorded ?Confirmed ?Last Taken ?Type buspirone 10 mg tablet mg 10/08/24 Unknown History trazodone 50 mg tablet mg 10/08/24 Unknown History venlafaxine 37.5 mg mg PO 10/08/24 Unknown History capsule,extended release 24 hr venlafaxine 75 mg capsule,extended mg PO 10/08/24 Unknown History release 24 hr Allergies Allergy/AdvReac Type Severity Reaction Status Date / Time morphine Allergy Mild Nausea Verified 08/16/24 08:04 mushrooms Allergy Unknown unknown Uncoded 08/16/24 08:04 Review of Systems 2 Review of Systems: All systems as dictated in HPI PMFSH Past Medical History Medical History Anxiety Asthma Sprain of medial collateral ligament of left knee Surgical History Surgical History History of dental surgery History of foot surgery (~08/2020) History of repair of anterior cruciate ligament of right knee Family History Family History Sibling Depression Mother Depression Other Brain aneurysm Social History Social History Smoking status: Never smoker Alcohol intake: current Alcohol use details: Occasionally Substance use: never Substance use type: does not use Lack of Transportation: No Lack of Food: Never True Current Housing: I Have Housing Concerned About Future Housing: No Difficulty Paying Gas/Electric Bills: No Difficulty Paying for Meds: No Currently Unemployed: No Education: Bachelor's Degree Difficulty w/ Childcare or Family Care: No Occupation/Education: occupation Gender identity (if verbalized by the patient): Male Exam 2 Narrative: GENERAL: Well-appearing, well-nourished, and in no acute distress. HEAD: Normocephalic, atraumatic. EYES: PERRLA and EOMI. ENT: Nares clear, no rhinorrhea or epistaxis. Mucous membranes moist. Oropharynx without tonsillar hypertrophy exudate or other lesions. NECK: Supple. No adenopathy or masses. CHEST: No respiratory distress. Clear to auscultation. No wheezes rales or rhonchi HEART: Regular rate and rhythm. No murmur heard. Normal peripheral pulses. ABDOMEN: Notable right lower quadrant tenderness present. Mild other diffuse abdominal tenderness. Soft, nondistended, normal active bowel sounds. Neg flank tenderness. MSK: Normal range of motion. No edema. SKIN: Warm, dry, no rash. NEURO: Alert and oriented x4. No focal deficits. PSYCH: Normal mood and affect. Course Vital Signs Vital signs: Vital Signs Temperature 98.6 F 10/08/24 17:11 Pulse Rate 97 10/08/24 17:11 Respiratory Rate 17 10/08/24 17:11 Blood Pressure 123/71 10/08/24 17:11 Pulse Oximetry 97 10/08/24 17:11 Oxygen Delivery Room Air 10/08/24 17:11 Temperature 98.1 F 10/08/24 21:58 Pulse Rate 78 10/08/24 21:58 Respiratory Rate 16 10/08/24 21:58 Blood Pressure 109/75 10/08/24 21:58 Pulse Oximetry 100 10/08/24 21:58 Oxygen Delivery Room Air 10/08/24 17:11 MDM - Abdominal Pain MDM Narrative Medical decision making narrative: This is a 34-year-old male who presents to the ED for chief complaint of abdominal pain with N/V/D. Vitals are normal. Exam shows several areas of abdominal tenderness, however much worse to the right lower quadrant. Lab work shows normal CBC and CMP. Urinalysis is negative CT of the abdomen pelvis with IV contrast: IMPRESSION: 1. Enteritis. He was given Toradol and Zofran here with good relief of symptoms. Presentation most likely consistent with gastroenteritis. Patient will be discharged in stable condition. Supportive measures discussed and return precautions given. Patient is understanding and agreeable with plan for discharge with PCP follow-up. Lab Data 10/08/24 17:32 10/08/24 17:32 Labs: Lab Results 10/08/24 10/08/24 Range/Units 17:32 19:15 WBC 9.1 (4.5-10.0) K/mm3 RBC 5.33 (4.6-6.20) M/mm3 Hgb 16.5 (14.0-18.0) g/dL Hct 48.2 (42.0-52.0) % MCV 90.4 (80-100) fl MCH 31.0 (26-34) pg MCHC 34.2 (32-36) g/dl RDW 12.8 (11.5-14.5) % Plt Count 220 (150-375) k/mm3 MPV 10.7 H (7.4-10.4) fl Immature Gran % (Auto) 0.3 (0-0.5) % Neut % (Auto) 81.1 H (45.5-73.1) % Lymph % (Auto) 8.2 L (18.3-44.2) % [place] % (Auto) 9.9 H (2.6-8.5) % Eos % (Auto) 0.1 (0-4.4) % Baso % (Auto) 0.4 (0.2-1.2) % Lymph # (Auto) 0.75 L (0.9-3.2) K/mm3 [place] # (Auto) 0.9 H (0.1-0.6) K/mm3 Eos # (Auto) 0.0 (0-0.3) K/mm3 Baso # (Auto) 0.0 (0.0-0.1) K/mm3 Abs Immat Gran (auto) 0.03 (0.00-0.031) K/mm3 Absolute Neuts (auto) 7.4 H (1.3-6.7) K/mm3 Absolute Nucleated RBC 0.000 (0.0-0.012) K/mm3 Nucleated RBC % 0.0 (0.0-0.2) % PT 13.4 (11.1-14.7) Seconds INR 1.0 APTT 29.7 (22.3-36.8) Seconds Sodium 136 L (137-145) mmol/L Potassium 3.9 (3.4-5.0) mmol/L Chloride 102 (98-107) mmol/L Carbon Dioxide 26 (22-30) mmol/L Anion Gap 8 (4-12) mmol/L BUN 14 (9-20) mg/dL Creatinine 1.30 (0.7-1.3) mg/dL Estim Creat Clear Calc 85 ml/min Estimated GFR > 60 (59 - ) Glucose 100 (65-110) mg/dL Lactic Acid 1.3 (0.7-2.0) mmol/L Calcium 9.2 (8.4-10.2) mg/dL Total Bilirubin 0.9 (0.2-1.3) mg/dL AST 22 (17-59) U/L ALT 21 (6-50) U/L Alkaline Phosphatase 78 (38-126) U/L Troponin I < 0.012 (0.000-0.034) ng/mL Total Protein 8.0 (6.3-8.2) g/dL Albumin 4.7 (3.5-5.1) g/dL Lipase 46 (23-300) U/L Urine Color Dark yellow (Yellow) Urine Appearance Clear (Clear) Urine pH 5.5 (5.0-9.0) Ur Specific [place] 1.025 (1.001-1.035) Urine Protein Trace (Negative) mg/dL Urine Glucose (UA) Negative (Negative) mg/dL Urine Ketones Trace H (Negative) mg/dL Ur Blood (Man) Negative (Negative) Urine Nitrate Negative (Negative) Urine Bilirubin Negative (Negative) Urine Urobilinogen 0.2 (<2.0) mg/dL Add Ur Microanalysis Reviewed Leukocyte Esterase Rfl Negative (Negative) TRAVIS/UL Urine RBC 0-2 (0-2) /hpf Urine WBC 0-5 (0-3) /hpf Ur Squamous Epith Cells None seen (Few) /hpf Urine Bacteria None seen /hpf Urine Casts 3-5 Imaging Data Radiologist's impression: ITS Impressions Abdomen/Pelvis CT 10/08/24 21:08 IMPRESSION: 1. Enteritis. Discharge Plan Discharge Clinical Impression: Enteritis Patient Disposition: Home, Self-Care Condition: Stable Instructions: Antibiotic Form Additional Instructions: Your evaluated the ED today for abdominal pain and nausea with vomiting. Exam and workup today are reassuring. No acute findings on the CT scan other than inflamed intestines. Please stay well hydrated at home. This issue should resolve over the next several days. Use Zofran at home for nausea as needed. If you have any new or worsening symptoms please return to the ER for further evaluation. Patient Language: Bahraini Prescriptions: New ondansetron 4 mg tablet,disintegrating 4 mg PO Q8H PRN (Reason: nausea and vomiting) Qty: 10 0RF No Action venlafaxine 37.5 mg capsule,extended release 24hr PO venlafaxine 75 mg capsule,extended release 24hr PO trazodone 50 mg tablet buspirone 10 mg tablet albuterol sulfate 90 mcg/actuation HFA aerosol inhaler 2 inh inhalation Q4-6H PRN (Reason: shortness of breath or wheezing) Qty: 8.5 0RF fluticasone propionate [Flonase Allergy Relief] 50 mcg/actuation spray,suspension 1 spray intranasal Q12H Qty: 16 0RF Rx Instructions: administer into each nostril Follow-up/Referrals: Ruth Bobo, ELECTRIC ORGAN ASSEMBLER AND CHECKER-C [Primary Care Provider] - Time of Disposition: 21:26
[2024-10-08 18:08] LABS: Prothrombin Time 13.4 Seconds (11.1-14.7)
[2024-10-08 18:09] LABS: Partial Thromboplastin Time 29.7 Seconds (22.3-36.8)
[2024-10-08 18:17] LABS: Troponin I < 0.012 ng/mL (0.000-0.034)
[2024-10-08 18:19] LABS: Alanine Aminotransferase 21 U/L (6-50); Albumin Level 4.7 g/dL (3.5-5.1); Alkaline Phosphatase 78 U/L (38-126); Anion Gap 8 mmol/L (4-12); Aspartate Amino Transferase 22 U/L (17-59); Bilirubin,Total 0.9 mg/dL (0.2-1.3); Blood Urea Nitrogen 14 mg/dL (9-20); Calcium 9.2 mg/dL (8.4-10.2); Carbon Dioxide 26 mmol/L (22-30); Chloride 102 mmol/L (98-107); Estimated CRCL calculation 85 ml/min; Estimated Glomerular Filt Rate > 60; Glucose 100 mg/dL (65-110); Potassium 3.9 mmol/L (3.4-5.0); Sodium 136 mmol/L (137-145)
[2024-10-08 18:40] LABS: Lipase 46 U/L (23-300)
[2024-10-08] MEDS: KETOROLAC 30 MG/ML VIAL (*BKC) IV PUSH (19:13)
[2024-10-08 20:25] LABS: Add Urine Microscopic? YES; Appearance Urine Clear (Clear); Bacteria Urine None Seen /hpf; Bilirubin Urine Negative (Negative); Blood Urine Negative (Negative); Color Urine Dark Yellow (Yellow); Glucose Urine UA Negative (Negative); Ketones Urine Trace mg/dL (Negative); Leukocyte Esterase Ur Negative LEU/UL (Negative); Need Manual Microscopic Reviewed; Nitrate Urine Negative (Negative); Protein Urine Trace mg/dL (Negative); RBC Urine 0-2 /hpf (0-2); Specific Grav Ur 1.025 (1.001-1.035); Squamous Epithelial Cell Urine None Seen /hpf (Few); Urobilinogen Urine 0.2 mg/dL (<2.0); WBC Urine 0-5 /hpf (0-3); pH Urine 5.5 (5.0-9.0)
== END 2024-10-08 22:00 | disposition home or self-care (01) ==
PROVIDERS: Registered Nurse; Emergency Provider Physician Assistant; PCP Clinical Nurse Specialist
DX: K52.9 Noninfective gastroenteritis and colitis, unspecified (principal); J45.909 Unspecified asthma, uncomplicated; F41.9 Anxiety disorder, unspecified; Z79.899 Other long term (current) drug therapy
CPT/HCPCS: 36415; 74177; 80053; 81001; 83605; 83690; 84484; 85025; 85610; 85730; 93005; 96374; 99284; A9270; J1885; Q9967

== ENCOUNTER 2024-11-05 09:27 | Outpatient (CLI) | payer BC, SELFPAY ==
--- NOTE | ~2024-11-05 | US_ITS ---
RIGHT UPPER QUADRANT ABDOMINAL ULTRASOUND (Doppler ultrasound interrogation techniques used as needed for this exam.) Ordering provider: THAD LazoP-C History: . R10.11 - Right upper quadrant pain . Comparison: None. FINDINGS: PANCREAS: Obscured. PORTAL VEIN: Hepatopedal flow demonstrated. LIVER: Normal size and echotexture. No focal hepatic lesions or perihepatic fluid collections are sergio ntified. BILIARY DUCTS: No intra or extrahepatic biliary dilation. Common bile duct measures 4 mm in diameter which is normal for patient's age. GALLBLADDER: Normal. No stones, sludge, gallbladder wall thickening or pericholecystic fluid. Negati ve sonographic Snyder's sign. FREE FLUID: None visualized within the upper abdomen. IMPRESSION: normal right upper quadrant ultrasound. Reviewed, dictated and finalized at location A. CARE TECHNICIAN
== END 2024-11-05 09:28 | disposition home or self-care (01) ==
LOC: GOSHIMG 09:27
PROVIDERS: PCP Internal Medicine; Visit Provider Clinical Nurse Specialist
DX: R10.11 Right upper quadrant pain (principal)
CPT/HCPCS: 76705

== ENCOUNTER 2024-12-10 08:06 | Emergency (ER) | payer BC, SELFPAY ==
--- NOTE | ~2024-12-10 | XR_ITS ---
EXAMINATION: XR ankle RT min 3V DATE: 12/10/2024 09:11 INDICATION: Right ankle injury and pain. TECHNIQUE: 4 views of right ankle were obtained. COMPARISON: Right ankle radiographs 01/11/2010 FINDINGS: Alignment is normal. No fracture. Joint spaces are normal. IMPRESSION: 1. No fracture. Reviewed, dictated and finalized at location A. D CUTTER IMPRESSION: 1. No fracture.
--- OUTSIDE RECORDS SUMMARY | 2024-12-10 08:10 | XMS_ITS | Patient Health Record ---
Author Organization [facility] [employer] Address [address] [place] [address] Care Team Providers Care Thermostat Maker Name Role Phone ALDO GASCA Primary Care Provider Francia Guillaume Unavailable [phone] DevinDelaney grullonna Unavailable [phone] Migration, Provider Unavailable Unavailable Allergies Allergen (clinical drug ingredient) Drug/Non Drug Allergy documented on EMR Reaction Allergy Type Onset Date Status Mushroom MUSHROOM (uncoded) Unknown Allergy 01/18/2024 Active morphine Morphine Unknown Drug Allergy 01/18/2024 Active Reason For Referral No Information Medications Medication SIG (Take, Route, Frequency, Duration) Notes Start Date End Date Status busPIRone HCl 10 MG 1 tablet Oral Twice a day for 90 days d/c 5 mg dose Active traZODone HCl 50 MG 1 tablet at bedtime Oral at bedtime for 90 days Active Albuterol Sulfate 0.63 MG/3ML Inhalation 01/18/2024 Active Venlafaxine HCl ER 37.5 MG 1 capsule with food Orally Once a day for 14 days 09/16/2024 Active Venlafaxine HCl ER 75 MG 1 capsule with food Orally Once a day for 30 days 09/16/2024 Active Social History Tobacco Use: Social History Observation Description Date Details (start date - stop date) Never Smoker NA - NA Sex Assigned At : Social History Observation Description Sex Assigned At Male Tobacco use other than smoking: Question Answer Notes Are you an other tobacco user? Yes s topped chew tobacco 09/15 Tobacco Control (Standard) Question Answer Notes Tobacco use: Nonsmoker Additional Findings: Tobacco user Chews tobacco Additional Findings: Tobacco non-user Ex-user of moist powdered tobacco AUDIT-C (Standard) Question Answer Notes Interpretation Positive Did you have a drink contain ing alcohol in the past year? Yes How often did you have six o r more drinks on one occasion in the past year? Less than monthly (1 point) How many drinks did you have on a typical day when you were drinking in the past year? 3 or 4 drinks (1 point) How often did you have a dri nk containing alcohol in the past year? Monthly or less (1 point) Problems Problem Type SNOMED Code ICD Code Onset Dates Problem Status W/U Status Risk Notes Problem [id number] Major depressive disorder, recurrent, mild (F33.0) 4 Active confirmed Problem 91189802 Generalized anxiety disorder (F41.1) 4 Active confirmed Problem Posttraumatic stress disorder (14926296) Post-traumatic stress disorder, chronic (F43.12) 4 Active confirmed Problem Insomnia disorder related to another mental disorder (03689273) Insomnia due to other mental disorder (F51.05) 4 Active confirmed Problem Panic disorder (581377686) Panic disorder [episodic paroxysmal anxiety] without agoraphobia (F41.0) 4 Active confirmed Problem 77224358 MDD (major depressive disorder), recurrent episode, moderate (F33.1) Active confirmed Vital Signs Heart Rate 64 /min 09/16/2024 Height-cm 187.96 cm 09/16/2024 Blood pressure diastolic 73 mm Hg 09/16/2024 Weight-kg 103.87 kg 09/16/2024 Height 74.00 in 09/16/2024 Blood pressure systolic 103 mm Hg 09/16/2024 Weight 229.0 lbs 09/16/2024 BMI 29.4 kg/m2 09/16/2024 Encounters Encounter Location Date Provider Diagnosis [employer] [address] [address] 08/02/[address] [facility] [facility] [address] [place] [address] 12/19/2023 Francia Villar Panic disorder [episodic paroxysmal anxiety] without agoraphobia F41.0 ; Generalized anxiety disorder F41.1 ; Insomnia due to other mental disorder F51.05 ; Major depressive disorder, recurrent, mild F33.0 and Post-traumatic stress disorder, chronic F43.12 [facility] [address] [facility] [address] [place] [address] 01/18/2024 Francia Villar Post-traumatic stress disorder, chronic F43.12 ; Insomnia due to other mental disorder F51.05 ; Major depressive disorder, recurrent, mild F33.0 ; Generalized anxiety disorder F41.1 and Panic disorder [episodic paroxysmal anxiety] without agoraphobia F41.0 [facility] [address] [facility] [address] [place] [address] 03/19/2024 Francia Villar [place] [id number] [facility] [address] [place] [address] 03/27/2024 Doris Devin Major depressive disorder, recurrent, mild F33.0 ; Generalized anxiety disorder F41.1 and Chronic post-traumatic stress disorder F43.12 [place] [id number] [address] 06/14/2024 Francia Villar Major depressive disorder, recurrent, mild F33.0 ; Generalized anxiety disorder F41.1 ; Panic disorder [episodic paroxysmal anxiety] without agoraphobia F41.0 ; Insomnia due to other mental disorder F51.05 and Post-traumatic stress disorder, chronic F43.12 [facility] [address] [address] 06/21/2024 Doriselbert Beltran Major depressive disorder, recurrent, mild F33.0 ; Generalized anxiety disorder F41.1 ; Post-traumatic stress disorder, chronic F43.12 and Panic disorder [episodic paroxysmal anxiety] without agoraphobia F41.0 [place] [address] [address] 08/20/2024 Francia Villar Major depressive disorder, recurrent, mild F33.0 ; Generalized anxiety disorder F41.1 ; Panic disorder [episodic paroxysmal anxiety] without agoraphobia F41.0 ; Insomnia due to other mental disorder F51.05 and Post-traumatic stress disorder, chronic F43.12 [place] [address] [address] 09/06/2024 Doris Devin Major depressive disorder, recurrent, mild F33.0 ; Generalized anxiety disorder F41.1 ; Post-traumatic stress disorder, chronic F43.12 and Panic disorder [episodic paroxysmal anxiety] without agoraphobia F41.0 [facility], [facility] [address] [place] [address] 09/16/2024 Francia Villar Generalized anxiety disorder F41.1 ; MDD (major depressive disorder), recurrent episode, moderate F33.1 ; Panic disorder [episodic paroxysmal anxiety] without agoraphobia F41.0 ; Insomnia due to other mental disorder F51.05 and Post-traumatic stress disorder, chronic F43.12 [facility], [facility] [address] [place] [address] 11/01/2024 Doris Beltran MDD (major depressive disorder), recurrent episode, moderate F33.1 ; Generalized anxiety disorder F41.1 ; Post-traumatic stress disorder, chronic F43.12 and Panic disorder [episodic paroxysmal anxiety] without agoraphobia F41.0 [facility] [address] [place] [address] 12/06/2024 Doris Beltran Major depressive disorder, recurrent, mild F33.0 ; Generalized anxiety disorder F41.1 and Panic disorder [episodic paroxysmal anxiety] without agoraphobia F41.0 [facility], [facility] [address] [place] [address] 01/12/2024 Provider Migration [facility], [facility] [address] [place] [address] 01/15/2024 Provider Migration [facility], [facility] [address] [place] [address] 02/12/2024 Provider Migration [facility], [facility] [address] [place] [address] 02/19/2024 Provider Migration [facility], [facility] [address] [place] [address] 03/09/2024 Provider Migration [facility], [facility] [address] [place] [address] 03/10/2024 [facility], [facility] [address] [place] [address] 07/08/2024 Francia Villar [facility], [facility] [address] [place] [address] 07/09/2024 Francia Villar [facility], [facility] [address] [place] [address] 08/19/2024 Francia Villar [facility], [facility] [address] [place] [address] 08/19/2024 Francia Villar [facility], [facility] [address] [facility] [address] [place] [address] 08/20/2024 Francia Villar [facility], [facility] [address] [place] [address] 10/11/2024 Francia Villar [facility], [facility] [address] [address] 10/17/2024 Francia Villar Assessments Encounter Date Diagnosis (ICD Code) Assessment Notes Treatment Notes Treatment Clinical Notes Section Notes 12/19/2023 Major depressive disorder, recurrent, mild (ICD-10 - F33.0) 12/19/2023 Generalized anxiety disorder (ICD-10 - F41.1) 12/19/2023 Post-traumatic stress disorder, chronic (ICD-10 - F43.12) 12/19/2023 Insomnia due to other mental disorder (ICD-10 - F51.05) 12/19/2023 Panic disorder [episodic paroxysmal anxiety] without agoraphobia (ICD-10 - F41.0) 01/18/2024 Major depressive disorder, recurrent, mild (ICD-10 - F33.0) 01/18/2024 Generalized anxiety disorder (ICD-10 - F41.1) 01/18/2024 Post-traumatic stress disorder, chronic (ICD-10 - F43.12) 01/18/2024 Insomnia due to other mental disorder (ICD-10 - F51.05) 01/18/2024 Panic disorder [episodic paroxysmal anxiety] without agoraphobia (ICD-10 - F41.0) 03/27/2024 Major depressive disorder, recurrent, mild (ICD-10 - F33.0) 03/27/2024 Generalized anxiety disorder (ICD-10 - F41.1) 06/14/2024 Major depressive disorder, recurrent, mild (ICD-10 - F33.0) Preventing Depression From Coming Back: Care Instructions material was published, Learning About Depression material was published, Learning About Depression Screening material was published, Learning About How to Get Help During a Mental Health Crisis material was published, Seasonal Affective Disorder: Care Instructions material was published 1. Mild recurrent major depression - discuss Buspar and educated on rx for depression and anxiety Buspar 5 mg twice a day - educated to take as prescribed to help anxiety and depression refer to therapy- scheduled obtain labs PCP schedule 07/16 consent to send record to PCP patient request 2. Generalized anxiety disorder -educated to take Buspar 5 MG TWICE A day with meal educated on rx patient for depression and anxiety and panicdiscuss and educated on Buspar for anxiety and panic and patient agrees improved sleep [facility] HX ALL RX [facility] TODAY 3. Panic disorder -refer to therapy Buspar 5 mg twice a day 4. Insomnia disorder related to another mental disorder - Trazodone 25-50 mg at bedtime for sleep - educated on rx - patient reported taken 25 mg sleeping improved 5. Chronic post-traumatic stress disorder -therapy scheduled - prefer female therapist 06/14/2024 Generalized anxiety disorder (ICD-10 - F41.1) Learning About Generalized Anxiety Disorder material was published, Generalized Anxiety Disorder: Care Instructions material was published, Learning About Transcranial Magnetic Stimulation (TMS) material was published, Learning About Anxiety Disorders material was published 1. Mild recurrent major depression - discuss Buspar and educated on rx for depression and anxiety Buspar 5 mg twice a day - educated to take as prescribed to help anxiety and depression refer to therapy- scheduled obtain labs PCP schedule 07/16 consent to send record to PCP patient request 2. Generalized anxiety disorder -educated to take Buspar 5 MG TWICE A day with meal educated on rx patient for depression and anxiety and panicdiscuss and educated on Buspar for anxiety and panic and patient agrees improved sleep [facility] HX ALL RX [place] TODAY 3. Panic disorder -refer to therapy Buspar 5 mg twice a day 4. Insomnia disorder related to another mental disorder - Trazodone 25-50 mg at bedtime for sleep - educated on rx - patient reported taken 25 mg sleeping improved 5. Chronic post-traumatic stress disorder -therapy scheduled - prefer female therapist 06/21/2024 Major depressive disorder, recurrent, mild (ICD-10 - F33.0) 08/20/2024 Major depressive disorder, recurrent, mild (ICD-10 - F33.0) Preventing Depression From Coming Back: Care Instructions material was published, Learning About Depression material was published, Learning About Depression Screening material was published, Learning About How to Get Help During a Mental Health Crisis material was published, Seasonal Affective Disorder: Care Instructions material was published 1. Mild recurrent major depression - discuss Buspar and educated on rx for depression and anxiety discuss [facility] and forms and need to be seen by provider/ walk in clinic [facility], therapy with in 72 hours of a mental health day of from job, ( noted in [employer] forms ) pateint took off work missed work- 07/25, 15, 17, 18, 25 in 08/15 for mental health days increase anxiety, will give letter for off work those days for job Buspar 10 mg twice a day - educated to take as prescribed to help anxiety and depression refer to therapy- scheduled obtain labs PCP schedule 07/16 consent to send record to PCP patient request 2. Generalized anxiety disorder -educated on all rx Increase Buspar 10 MG TWICE A day with meal educated on rx patient for depression and anxiety and panicdiscuss and educated on Buspar for anxiety and panic and patient agrees improved sleep [facility] ALL RX [place] TODAY 3. Panic disorder -refer to therapy Buspar 10 mg twice a day 4. Insomnia disorder related to another mental disorder - Trazodone 50 mg at bedtime for sleep - educated on rx - 5. Chronic post-traumatic stress disorder -therapy scheduled - prefer female therapist - see Anjali burnett 08/20/2024 Generalized anxiety disorder (ICD-10 - F41.1) Learning About Generalized Anxiety Disorder material was published, Generalized Anxiety Disorder: Care Instructions material was published, Learning About Transcranial Magnetic Stimulation (TMS) material was published, Learning About Anxiety Disorders material was published 1. Mild recurrent major depression - discuss Buspar and educated on rx for depression and anxiety discuss [facility] and forms and need to be seen by provider/ walk in clinic [facility], therapy with in 72 hours of a mental health day of from job, ( noted in [employer] forms ) pateint took off work missed work- 07/25, 15, 17, 18, 25 in 08/15 for mental health days increase anxiety, will give letter for off work those days for job Buspar 10 mg twice a day - educated to take as prescribed to help anxiety and depression refer to therapy- scheduled obtain labs PCP schedule 07/16 consent to send record to PCP patient request 2. Generalized anxiety disorder -educated on all rx Increase Buspar 10 MG TWICE A day with meal educated on rx patient for depression and anxiety and panicdiscuss and educated on Buspar for anxiety and panic and patient agrees improved sleep [facility] HX ALL RX [place] TODAY 3. Panic disorder -refer to therapy Buspar 10 mg twice a day 4. Insomnia disorder related to another mental disorder - Trazodone 50 mg at bedtime for sleep - educated on rx - 5. Chronic post-traumatic stress disorder -therapy scheduled - prefer female therapist - see Mary- [facility] 09/06/2024 Major depressive disorder, recurrent, mild (ICD-10 - F33.0) 09/16/2024 Generalized anxiety disorder (ICD-10 - F41.1) Learning About Generalized Anxiety Disorder material was published, Generalized Anxiety Disorder: Care Instructions material was published, Learning About Transcranial Magnetic Stimulation (TMS) material was published, Learning About Anxiety Disorders material was published 1. major depression - discuss rx options for depression and anxiety discuss and educated on Effexor ER 37.5 mg daily in am for 2 weeks and then increase Effexor ER 75 mg daily in am monitor B/P Buspar and educated on rx for depression and anxiety HX [facility] and forms and need to be seen by provider/ walk in clinic [facility], therapy with in 72 hours of a mental health day of from job, ( noted in [employer] forms 07/16/) pateint took off work missed work- 07/25, 15, 17, 18, 25 in 08/15 for mental health days increase anxiety, will give letter for off work those days for job Buspar 10 mg twice a day - educated to take as prescribed to help anxiety and depression refer to therapy- scheduled obtain labs PCP schedule 07/16 consent to send record to PCP patient request 2. Generalized anxiety disorder -educated on all rx Buspar 10 MG TWICE A day with meal educated on rx patient for depression and anxiety and panicdiscuss and educated on Buspar for anxiety and panic and patient agrees improved sleep [facility] HX ALL RX [place] TODAY 3. Panic disorder -refer to therapy Buspar 10 mg twice a day 4. Insomnia disorder related to another mental disorder - Trazodone 50 mg at bedtime for sleep - educated on rx - 5. Chronic post-traumatic stress disorder -therapy scheduled - prefer female therapist - see Mary- [facility] 09/16/2024 MDD (major depressive disorder), recurrent episode, moderate (ICD-10 - F33.1) 1. major depression - discuss rx options for depression and anxiety discuss and educated on Effexor ER 37.5 mg daily in am for 2 weeks and then increase Effexor ER 75 mg daily in am monitor B/P Buspar and educated on rx for depression and anxiety HX [facility] and forms and need to be seen by provider/ walk in clinic [facility], therapy with in 72 hours of a mental health day of from job, ( noted in [employer] forms 07/16/) pateint took off work missed work- 07/25, 15, 17, 18, 25 in 08/15 for mental health days increase anxiety, will give letter for off work those days for job Buspar 10 mg twice a day - educated to take as prescribed to help anxiety and depression refer to therapy- scheduled obtain labs PCP schedule 07/16 consent to send record to PCP patient request 2. Generalized anxiety disorder -educated on all rx Buspar 10 MG TWICE A day with meal educated on rx patient for depression and anxiety and panicdiscuss and educated on Buspar for anxiety and panic and patient agrees improved sleep [facility] H[facility] ALL RX [place] TODAY 3. Panic disorder -refer to therapy Buspar 10 mg twice a day 4. Insomnia disorder related to another mental disorder - Trazodone 50 mg at bedtime for sleep - educated on rx - 5. Chronic post-traumatic stress disorder -therapy scheduled - prefer female therapist - see Mary- [facility] 11/01/2024 MDD (major depressive disorder), recurrent episode, moderate (ICD-10 - F33.1) 12/06/2024 Major depressive disorder, recurrent, mild (ICD-10 - F33.0) 12/06/2024 Generalized anxiety disorder (ICD-10 - F41.1) 11/01/2024 Generalized anxiety disorder (ICD-10 - F41.1) 09/16/2024 Panic disorder [episodic paroxysmal anxiety] without agoraphobia (ICD-10 - F41.0) Panic Attacks: Care Instructions material was published 1. major depression - discuss rx options for depression and anxiety discuss and educated on Effexor ER 37.5 mg daily in am for 2 weeks and then increase Effexor ER 75 mg daily in am monitor B/P Buspar and educated on rx for depression and anxiety HX [facility] and forms and need to be seen by provider/ walk in clinic [facility], therapy with in 72 hours of a mental health day of from job, ( noted in [employer] forms ) pateint took off work missed work- 07/25, 15, 17, 18, 25 in 08/15 for mental health days increase anxiety, will give letter for off work those days for job Buspar 10 mg twice a day - educated to take as prescribed to help anxiety and depression refer to therapy- scheduled obtain labs PCP schedule 07/16 consent to send record to PCP patient request 2. Generalized anxiety disorder -educated on all rx Buspar 10 MG TWICE A day with meal educated on rx patient for depression and anxiety and panicdiscuss and educated on Buspar for anxiety and panic and patient agrees improved sleep [facility] HX ALL RX [place] TODAY 3. Panic disorder -refer to therapy Buspar 10 mg twice a day 4. Insomnia disorder related to another mental disorder - Trazodone 50 mg at bedtime for sleep - educated on rx - 5. Chronic post-traumatic stress disorder -therapy scheduled - prefer female therapist - see Anjali burnett 09/06/2024 Generalized anxiety disorder (ICD-10 - F41.1) 08/20/2024 Panic disorder [episodic paroxysmal anxiety] without agoraphobia (ICD-10 - F41.0) Panic Attacks: Care Instructions material was published 1. Mild recurrent major depression - discuss Buspar and educated on rx for depression and anxiety discuss [facility] and forms and need to be seen by provider/ walk in clinic [facility], therapy with in 72 hours of a mental health day of from job, ( noted in [employer] forms ) pateint took off work missed work- 07/25, 15, 17, 18, 25 in 08/15 for mental health days increase anxiety, will give letter for off work those days for job Buspar 10 mg twice a day - educated to take as prescribed to help anxiety and depression refer to therapy- scheduled obtain labs PCP schedule 07/16 consent to send record to PCP patient request 2. Generalized anxiety disorder -educated on all rx Increase Buspar 10 MG TWICE A day with meal educated on rx patient for depression and anxiety and panicdiscuss and educated on Buspar for anxiety and panic and patient agrees improved sleep [facility] HX ALL RX [place] TODAY 3. Panic disorder -refer to therapy Buspar 10 mg twice a day 4. Insomnia disorder related to another mental disorder - Trazodone 50 mg at bedtime for sleep - educated on rx - 5. Chronic post-traumatic stress disorder -therapy scheduled - prefer female therapist - see Anjali [facility] 06/21/2024 Generalized anxiety disorder (ICD-10 - F41.1) 06/14/2024 Panic disorder [episodic paroxysmal anxiety] without agoraphobia (ICD-10 - F41.0) Panic Attacks: Care Instructions material was published 1. Mild recurrent major depression - discuss Buspar and educated on rx for depression and anxiety Buspar 5 mg twice a day - educated to take as prescribed to help anxiety and depression refer to therapy- scheduled obtain labs PCP schedule 07/16 consent to send record to PCP patient request 2. Generalized anxiety disorder -educated to take Buspar 5 MG TWICE A day with meal educated on rx patient for depression and anxiety and panicdiscuss and educated on Buspar for anxiety and panic and patient agrees improved sleep [facility] ALL RX [place] TODAY 3. Panic disorder -refer to therapy Buspar 5 mg twice a day 4. Insomnia disorder related to another mental disorder - Trazodone 25-50 mg at bedtime for sleep - educated on rx - patient reported taken 25 mg sleeping improved 5. Chronic post-traumatic stress disorder -therapy scheduled - prefer female therapist 03/27/2024 Chronic post-traumatic stress disorder (ICD-10 - F43.12) 06/14/2024 Insomnia due to other mental disorder (ICD-10 - F51.05) 1. Mild recurrent major depression - discuss Buspar and educated on rx for depression and anxiety Buspar 5 mg twice a day - educated to take as prescribed to help anxiety and depression refer to therapy- scheduled obtain labs PCP schedule 07/16 consent to send record to PCP patient request 2. Generalized anxiety disorder -educated to take Buspar 5 MG TWICE A day with meal educated on rx patient for depression and anxiety and panicdiscuss and educated on Buspar for anxiety and panic and patient agrees improved sleep [facility] ALL RX [place] TODAY 3. Panic disorder -refer to therapy Buspar 5 mg twice a day 4. Insomnia disorder related to another mental disorder - Trazodone 25-50 mg at bedtime for sleep - educated on rx - patient reported taken 25 mg sleeping improved 5. Chronic post-traumatic stress disorder -therapy scheduled - prefer female therapist 06/21/2024 Post-traumatic stress disorder, chronic (ICD-10 - F43.12) Client focused on his trauma/anxiety triggers. Therapist actively listened to client and asked questions for clarification. Client reponded by giving examples. Therapist utilized a cognitive behavioral intervention by having client focus on his self-talk and helping him to explore strategies to improve and make his self-talk healthier. 08/20/2024 Insomnia due to other mental disorder (ICD-10 - F51.05) 1. Mild recurrent major depression - discuss Buspar and educated on rx for depression and anxiety discuss [facility] and forms and need to be seen by provider/ walk in clinic [facility], therapy with in 72 hours of a mental health day of from job, ( noted in [facility] forms 07/16/) pateint took off work missed work- 07/25, 15, 17, 18, 25 in 08/15 for mental health days increase anxiety, will give letter for off work those days for job Buspar 10 mg twice a day - educated to take as prescribed to help anxiety and depression refer to therapy- scheduled obtain labs PCP schedule 07/16 consent to send record to PCP patient request 2. Generalized anxiety disorder -educated on all rx Increase Buspar 10 MG TWICE A day with meal educated on rx patient for depression and anxiety and panicdiscuss and educated on Buspar for anxiety and panic and patient agrees improved sleep [facility] HX ALL RX [facility] TODAY 3. Panic disorder -refer to therapy Buspar 10 mg twice a day 4. Insomnia disorder related to another mental disorder - Trazodone 50 mg at bedtime for sleep - educated on rx - 5. Chronic post-traumatic stress disorder -therapy scheduled - prefer female therapist - see Mary- [facility] 09/06/2024 Post-traumatic stress disorder, chronic (ICD-10 - F43.12) 09/16/2024 Insomnia due to other mental disorder (ICD-10 - F51.05) 1. major depression - discuss rx options for depression and anxiety discuss and educated on Effexor ER 37.5 mg daily in am for 2 weeks and then increase Effexor ER 75 mg daily in am monitor B/P Buspar and educated on rx for depression and anxiety HX [facility] and forms and need to be seen by provider/ walk in clinic [facility], therapy with in 72 hours of a mental health day of from job, ( noted in [facility] forms ) pateint took off work missed work- 07/25, 15, 17, 18, 25 in 08/15 for mental health days increase anxiety, will give letter for off work those days for job Buspar 10 mg twice a day - educated to take as prescribed to help anxiety and depression refer to therapy- scheduled obtain labs PCP schedule 07/16 consent to send record to PCP patient request 2. Generalized anxiety disorder -educated on all rx Buspar 10 MG TWICE A day with meal educated on rx patient for depression and anxiety and panicdiscuss and educated on Buspar for anxiety and panic and patient agrees improved sleep [facility] HX ALL RX [place] TODAY 3. Panic disorder -refer to therapy Buspar 10 mg twice a day 4. Insomnia disorder related to another mental disorder - Trazodone 50 mg at bedtime for sleep - educated on rx - 5. Chronic post-traumatic stress disorder -therapy scheduled - prefer female therapist - see Anjali burnett 11/01/2024 Post-traumatic stress disorder, chronic (ICD-10 - F43.12) 12/06/2024 Panic disorder [episodic paroxysmal anxiety] without agoraphobia (ICD-10 - F41.0) 11/01/2024 Panic disorder [episodic paroxysmal anxiety] without agoraphobia (ICD-10 - F41.0) 09/16/2024 Post-traumatic stress disorder, chronic (ICD-10 - F43.12) Post-Traumatic Stress Disorder (PTSD): Care Instructions material was published 1. major depression - discuss rx options for depression and anxiety discuss and educated on Effexor ER 37.5 mg daily in am for 2 weeks and then increase Effexor ER 75 mg daily in am monitor B/P Buspar and educated on rx for depression and anxiety HX [facility] and forms and need to be seen by provider/ walk in clinic [facility], therapy with in 72 hours of a mental health day of from job, ( noted in [facility] forms 07/16/) pateint took off work missed work- 07/25, 15, 17, 18, 25 in 08/15 for mental health days increase anxiety, will give letter for off work those days for job Buspar 10 mg twice a day - educated to take as prescribed to help anxiety and depression refer to therapy- scheduled obtain labs PCP schedule 07/16 consent to send record to PCP patient request 2. Generalized anxiety disorder -educated on all rx Buspar 10 MG TWICE A day with meal educated on rx patient for depression and anxiety and panicdiscuss and educated on Buspar for anxiety and panic and patient agrees improved sleep [facility] HX ALL RX [place] TODAY 3. Panic disorder -refer to therapy Buspar 10 mg twice a day 4. Insomnia disorder related to another mental disorder - Trazodone 50 mg at bedtime for sleep - educated on rx - 5. Chronic post-traumatic stress disorder -therapy scheduled - prefer female therapist - [facility] 09/06/2024 Panic disorder [episodic paroxysmal anxiety] without agoraphobia (ICD-10 - F41.0) 08/20/2024 Post-traumatic stress disorder, chronic (ICD-10 - F43.12) Post-Traumatic Stress Disorder (PTSD): Care Instructions material was published 1. Mild recurrent major depression - discuss Buspar and educated on rx for depression and anxiety discuss [facility] and forms and need to be seen by provider/ walk in clinic [facility], therapy with in 72 hours of a mental health day of from job, ( noted in [facility] forms 07/16/) pateint took off work missed work- 07/25, 15, 17, 18, 25 in 08/15 for mental health days increase anxiety, will give letter for off work those days for job Buspar 10 mg twice a day - educated to take as prescribed to help anxiety and depression refer to therapy- scheduled obtain labs PCP schedule 07/16 consent to send record to PCP patient request 2. Generalized anxiety disorder -educated on all rx Increase Buspar 10 MG TWICE A day with meal educated on rx patient for depression and anxiety and panicdiscuss and educated on Buspar for anxiety and panic and patient agrees improved sleep [facility] HX ALL RX [place] TODAY 3. Panic disorder -refer to therapy Buspar 10 mg twice a day 4. Insomnia disorder related to another mental disorder - Trazodone 50 mg at bedtime for sleep - educated on rx - 5. Chronic post-traumatic stress disorder -therapy scheduled - prefer female therapist - [facility] 06/21/2024 Panic disorder [episodic paroxysmal anxiety] without agoraphobia (ICD-10 - F41.0) 06/14/2024 Post-traumatic stress disorder, chronic (ICD-10 - F43.12) Post-Traumatic Stress Disorder (PTSD): Care Instructions material was published 1. Mild recurrent major depression - discuss Buspar and educated on rx for depression and anxiety Buspar 5 mg twice a day - educated to take as prescribed to help anxiety and depression refer to therapy- scheduled obtain labs PCP schedule 07/16 consent to send record to PCP patient request 2. Generalized anxiety disorder -educated to take Buspar 5 MG TWICE A day with meal educated on rx patient for depression and anxiety and panicdiscuss and educated on Buspar for anxiety and panic and patient agrees improved sleep [facility] HX ALL RX [place] TODAY 3. Panic disorder -refer to therapy Buspar 5 mg twice a day 4. Insomnia disorder related to another mental disorder - Trazodone 25-50 mg at bedtime for sleep - educated on rx - patient reported taken 25 mg sleeping improved 5. Chronic post-traumatic stress disorder -therapy scheduled - prefer female therapist 06/14/2024 Other Buspirone Oral Tablet (BUSPIRONE - ORAL) material was published, Trazodone Oral Tablet (TRAZODONE - ORAL) material was published 1. Mild recurrent major depression - discuss Buspar and educated on rx for depression and anxiety Buspar 5 mg twice a day - educated to take as prescribed to help anxiety and depression refer to therapy- scheduled obtain labs PCP schedule 07/16 consent to send record to PCP patient request 2. Generalized anxiety disorder -educated to take Buspar 5 MG TWICE A day with meal educated on rx patient for depression and anxiety and panicdiscuss and educated on Buspar for anxiety and panic and patient agrees improved sleep [facility] HX ALL RX [place] TODAY 3. Panic disorder -refer to therapy Buspar 5 mg twice a day 4. Insomnia disorder related to another mental disorder - Trazodone 25-50 mg at bedtime for sleep - educated on rx - patient reported taken 25 mg sleeping improved 5. Chronic post-traumatic stress disorder -therapy scheduled - prefer female therapist 09/06/2024 Other Client focused on his panic attacks. Client states he has been tracking them and the activity just before having one. Therapist actively listened to client and asked questions for clarification. Therapist then utilized a solution focused intervention to help client explore strategies to minimize his panic attacks further (written reminders to improve self talk). 09/16/2024 Other Preventing Depression From Coming Back: Care Instructions material was published, Learning About Depression material was published, Learning About Depression Screening material was published, Learning About How to Get Help During a Mental Health Crisis material was published, Seasonal Affective Disorder: Care Instructions material was published 1. major depression - discuss rx options for depression and anxiety discuss and educated on Effexor ER 37.5 mg daily in am for 2 weeks and then increase Effexor ER 75 mg daily in am monitor B/P Buspar and educated on rx for depression and anxiety HX [facility] and forms and need to be seen by provider/ walk in clinic [facility], therapy with in 72 hours of a mental health day of from job, ( noted in [facility] forms 07/16/) pateint took off work missed work- 07/25, 15, 17, 18, 25 in 08/15 for mental health days increase anxiety, will give letter for off work those days for job Buspar 10 mg twice a day - educated to take as prescribed to help anxiety and depression refer to therapy- scheduled obtain labs PCP schedule 07/16 consent to send record to PCP patient request 2. Generalized anxiety disorder -educated on all rx Buspar 10 MG TWICE A day with meal educated on rx patient for depression and anxiety and panicdiscuss and educated on Buspar for anxiety and panic and patient agrees improved sleep [facility] HX ALL RX [place] TODAY 3. Panic disorder -refer to therapy Buspar 10 mg twice a day 4. Insomnia disorder related to another mental disorder - Trazodone 50 mg at bedtime for sleep - educated on rx - 5. Chronic post-traumatic stress disorder -therapy scheduled - prefer female therapist - see Anjali burnett 11/01/2024 Other Client focused on being triggered by his boss (whom he only has occasional encounters with). He also focused on wanteing to be a good father. Therapist actively listened to client and utilized a cognitive behavioral intervention to help client explore strategies to reduce the trauma triggers created by his boss and to reduce the volume of his voice (he has a deep voice which sometimes comes across as being loud). PHQ=10 moderate PING=12 moderate 12/06/2024 Other Client focused on wanting to have a son with this (sonnogram wasn't conclusive) because he already has 2 daughters. Therapist utilized a cognitive behavioral intervention to help him explore how his daughters may keep the family name when and if they get . He can teach them anything he would teach a boy. PHQ=11 moderate PING=5 mild Plan Of Treatment No Information Insurance Providers Payer Name Payer Address Payer Phone Subscriber Number Group Number Insured Name Patient Relationship to Insured Coverage Start Date Coverage End Date [employer] [address] [place] [address] [id number] CARLA POLO Self - patient is the insured [facility] [address] [place] [address] [id number] CARLA SHIRA Spouse - patient is the spouse of the insured [employer] [address] [place] [address] [id number] APURVA AUGIRREUS Self - patient is the insured Medical (General) History Medical History History ICD Code Problems: Chronic post-traumatic stress disorder Generalized anxiety disorder Insomnia disorder related to another men ibis disorder Mild recurrent major depression Panic disorder , Past Psychiatric History: Anxiety Disord er,PTSD undefined abdominal aortic aneurysm: No atrial fibrillation: No chronic fatigue syndrome: No essential tremor: No hyperlipidemia: No hypertension: No Parkinson's disease: No restless leg syndrome: No stroke: No subdural hematoma: No type 1 diabetes mellitus: No type 2 diabetes mellitus: No vitamin B12 deficiency: No vitamin D deficiency: No Surgical History Surgery Date(Month/Year) Other 03/16/2012 Any surgical history 07/27/2019
--- OUTSIDE RECORDS SUMMARY | 2024-12-10 08:11 | XMS_ITS ---
Author Organization [facility] [employer] Address [address] [place] [address] Care Team Providers Care Director Of Exhibits Name Role Phone ALDO GASCA Primary Care Provider Francia Guillaume Unavailable [phone] DevinDoris Unavailable [phone] REASON FOR VISIT Follow Up, anxiety, depression, panic attacks, trauma Medications Medication SIG (Take, Route, Frequency, Duration) Notes Start Date End Date Status Venlafaxine HCl ER 37.5 MG 1 capsule with food Orally Once a day for 14 days 09/16/2024 Active Albuterol Sulfate 0.63 MG/3ML Inhalation 01/18/2024 Active traZODone HCl 50 MG 1 tablet at bedtime Oral at bedtime for 90 days Active busPIRone HCl 10 MG 1 tablet Oral Twice a day for 90 days d/c 5 mg dose Active Venlafaxine HCl ER 75 MG 1 [...] past year? Monthly or less (1 point) Encounters Encounter Location Date Provider Diagnosis [facility] [employer] [facility] [address] [place] [address] 11/01/2024 Doris Beltran MDD (major depressiv e disorder), recurrent episode, moderate F33.1 ; Generalized anxiety disorder F41.1 ; Post-traumatic stress disorder, chronic F43.12 and Panic disorder [episodic paroxysmal anxiety] without agoraphobia F41.0 Assessments Encounter Date Diagnosis (ICD Code) Assessment Notes Treatment Notes Treatment Clinical Notes Section Notes 11/01/2024 MDD (major depressive disorder), recurrent episode, moderate (ICD-10 - F33.1) 11/01/2024 Generalized anxiety disorder (ICD-10 - F41.1) 11/01/2024 Post-traumatic stress disorder, chronic (ICD-10 - F43.12) 11/01/2024 Panic disorder [episodic paroxysmal anxiety] without agoraphobia (ICD-10 - F41.0) 11/01/2024 Other Client focused on being triggered [...] as being loud). PHQ=10 moderate PING=12 moderate Plan Of Treatment Next Appt Details Follow Up: 4 Weeks, Reason: therapy follow up Progress Notes * POLO AGUIRREDOB:1990 ( 34 yo M)Acc No.[id number]:11/01/2024 Patient: POLO AMARAL Provider: Jones BELTRAN LCSW :1990 A ge:34 Y S ex:Male Date:11/01/2024 Address:[address] [place], [place] [id number] Pcp:ALDO BAY ACCOUNT DEVELOPER-C Data: * Time Tracker: * Date Start Time End Time Duration User Type Captured By Mode Notes 11/01/2024 10:00 AM 10:57 AM 00:57:00 Therapist Doris Beltranual * Chief Complaints: * 1 . Follow Up. 2. Anxiety. 3. Depression. 4. Panic attacks. 5. Trauma. * HPI: F unctional Status: Client is here today for psychotherapy to treat anxiety, depression, panic and trauma issues. Based on our session, I think the patient is making modelrate progress. At this time I do not recommend changes to the treatment plan. I so not think the patient poses significant risk of harm to self or others at this time. Discussed continued treatment with patient. D epression Screening: PING-7 (2018 Edition) F eeling nervous, anxious, or on edge?More than half the days, N ot being able to stop or control worrying M ore than half the days, W orrying too much about different things M ore than hafl the days, T rouble relaxing M ore than half the days, B eing so restless that it is hard to sit still M ore than half the days, B ecoming easily annoyed or irritable M ore than half the days, F eeling afraid as if something awful might happen N ot at all, T otal PING-7 Score 1 2, I f you checked any problems, how difficult have they made it for you to do your work, take care of things at home, or get along with other people? S omewhat difficult, I nterpretation of Total?(10 to 14) Moderate. C [place]-Suicide Severity Rating Scale: Suicide Risk (CSRS-screener) i n the past one month Have you wished you were or wished you could go to sleep and not wake up? N o, i n the past one month Have you actually had any thoughts of killing yourself? N o, H ave you ever done anything, started to do anything, or prepared to do anything to end your life? N o. D epression screening: PHQ-9 L ittle interest or pleasure in doing things M ore than half the days, F eeling down, depressed, or hopeless M ore than half the days, T rouble falling or staying asleep, or sleeping too much M ore than half the days, F eeling tired or having little energy M ore than half the days, P oor appetite or overeating N ot at all, F eeling bad about yourself or that you are a failure, or have let yourself or your family down N ot at all, T rouble concentrating on things, such as reading the newspaper or watching television M ore than half the days, M oving or speaking so slowly that other people could have noticed; or the opposite, being so fidgety or restless that you have been moving around a lot more than usual N ot at all, T houghts that you would be better off or of hurting yourself in some way N ot at all, T otal Score 1 0, I nterpretation M oderate Depression. I ntervention D epression Screening Findings P ositAnny garcia ollow-Up for Depression M [facility] treatment assessment, Patient follow-up to return when and if necessary, Suicide Risk Assessment Performed 0 11/01/2024 client denies plan or intent to harm himself,?Additional Evaluation for Depression P sychiatric interview and evaluation, N leandra of the standardized tool used for adult depression screening: [facility]? * Behavioral History: P ast psychiatric Hospitalization:No. H istory of suicidal attempt?:No. * Social History: T obacco Use: T obacco use other than smoking A re you an other tobacco user? Y es stopped chew tobacco 09/15. T obacco Control (Standard) T obacco use: N Jeanette celaya dditional Findings: Tobacco user C vanessa tobacco, A dditional Findings: Tobacco non-user E x-user of moist powdered tobacco. M igrated Social History: M igrated Social History: Alcohol Intake: Occasional 11/23/2023,Tobacco Years: Never smoker 11/23/2023. D rug/Alcohol: D rugs H ave you used drugs other than those for medical reasons in the past 12 months??No. A ARINA-C (Standard) D id you have a drink containing alcohol in the past year? Y es, H ow often did you have six or more drinks on one occasion in the past year? L ess than monthly (1 point), H ow many drinks did you have on a typical day when you were drinking in the past year? 3 or 4 drinks (1 point), H ow often did you have a drink containing alcohol in the past year? M onthly or less (1 point), I nterpretation P ositive. M iscellaneous: S afety issues A re there any firearms in the house? Y es. A dvance Care Planning?Are you your own decision-maker Y es, D o you have Power of General Maintenance Technician for Health or Medical? N o. S ocial History: H ousehold M arital Status: M arried, N umber of Adults in household: 2 , N umber of Children in Household: 2 , L evel of Education: N ot Finished College. * Medications: T aking busPIRone HCl 10 MG Tablet 1 tablet Oral Twice a day , Notes to Pharmacist: d/c 5 mg dose, Taking traZODone HCl 50 MG Tablet 1 tablet at bedtime Oral at bedtime , Taking Albuterol Sulfate 0.63 MG/3ML Nebulization Solution Inhalation , Taking Venlafaxine HCl ER 37.5 MG Capsule Extended Release 24 Hour 1 capsule with food Orally Once a day , Taking Venlafaxine HCl ER 75 MG Capsule Extended Release 24 Hour 1 capsule with food Orally Once a day , Medication List reviewed and reconciled with the patient * Examination: G eneral Examination: C lient is casually groomed and oriented X 3. Assessment: * Assessment: 1. M DD (major depressive disorder), recurrent episode, moderate - F33.1 (Primary) ?2. G eneralized anxiety disorder - F41.1 3 . P ost-traumatic stress disorder, chronic - F43.12 4 . P anic disorder [episodic paroxysmal anxiety] without agoraphobia - F41.0 S pecify :Src Diagnosis Name: Panic disorder [episodic paroxysmal anxiety] Plan: * Treatment: * Procedure Codes: 9 0837 PSYCHOTHERAPY W/PATIENT 60 MINUTES, 07861 BEHAV ASSMT W/SCORE & DOCD/STAND INSTRUMENT * Follow Up: 4 Weeks (Reason: therapy follow up) * Billing Information: * Visit Code: * Procedure Codes: 77080 PSYCHOTHERAPY W/PATIENT 60 MINUTES. 49134 BEHAV ASSMT W/SCORE & DOCD/STAND INSTRUMENT. * F WELLNESS OFFICER Sign off status: Completed Signatures: No Ad Hoc Signature Added true * Provider: Jones BELTRAN LCSW Date: 0 11/01/2024 Generated for Kathia jones/Rashard/Garcia on: 0 12/10/2024 08:10 AM CHIEF WELLNESS OFFICER History and Physical Notes * HPI (History of Present Illness) Category Sub-Category Detail Notes Category Not es Depression screening PHQ-9 Little inte rest or pleasure in doing things: More than half the days Feeling down, depressed, or hopeless: Mo re than half the days Trouble falling or staying a sleep, or sleeping too much: More than half the days Feeling tired or having little energy: M ore than half the days Poor appetite or overeating: Not at all Feeling bad about yourself o r that you are a failure, or have let yourself or your family down: Not at all Trouble concentrating on thi ngs, such as reading the newspaper or watching television: More than half the days Moving or speaking so slowly that other people could have noticed; or the opposite, being so fidgety or restless that you have been moving around a lot more than usual: Not at all Thoughts that you would be b zeinab off or of hurting yourself in some way: Not at all Total Score: 10 Interpretation: Moderate Depression Intervention Depression Screening Findings: P ositve Follow-Up for Depression: [facility] treatment assessment, Patient follow-up to return when and if necessary Suicide Risk Assessment Performed: 11/01 client denies plan or intent to harm himself Additional Evaluation for De pression: Psychiatric interview and evaluation Name of the standardized too l used for adult depression screening:: Patient Health Questionnaire (PHQ-9) Functional Status Client is here today for psychotherapy to treat anxiety, depression, panic and trauma issues. Based on our session, I think the patient is making modelrate progress. At this time I do not recommend changes to the treatment plan. I so not think the patient poses significant risk of harm to self or others at this time. Discussed continued treatment with patient. Depression Screening PING-7 (2018 Edition) Feeling nervous, anxious, or on edge: More than half the days Not being able to stop or control worryi ng: More than half the days Worrying too much about different things : More than hafl the days Trouble relaxing: More than half the day s Being so restless that it is hard to sit still: More than half the days Becoming easily annoyed or irritable: Mo re than half the days Feeling afraid as if something awful mary ht happen: Not at all Total PING-7 Score: 12 If you checked any problems, how difficult have they made it for you to do your work, take care of things at home, or get along with other people?: Somewhat difficult Interpretation of Total: (10 to 14) Mode rate [place]-Suicide Severity Rating Scale Suicide Risk (CSRS-screener) in the past one month Have you wished you were or wished you could go to sleep and not wake up?: No in the past one month Have y ou actually had any thoughts of killing yourself?: No Have you ever done anything, started to do anything, or prepared to do anything to end your life?: No Examination Category Sub-Category Detail Notes Category Not es General Examination Client i s casually groomed and oriented X 3
--- OUTSIDE RECORDS SUMMARY | 2024-12-10 08:11 | XMS_ITS | Continuity of Care Document ---
Author Name [facility] Organization [facility] Care Team Providers Care Manager Paid Name Role Phone [facility] Unavailable Unavailable Problems Problem Status Onset Date Classification Date Reported Comments Source Jaw pain 05/24/2020 05/25/2020 50 [facility] TMJ locking 05/24/2020 05/25/2020 50 [facility] Chest pain 11/30/2019 12/01/2019 50 [facility] Medications Medication Details Route Status Patient Instructions Ordering Provider Order Date Source Aluminum Hydroxide 40 MG/ML / Magnesium Hydroxide 40 MG/ML / Simethicone 4 MG/ML Oral Suspension [Mylanta] 5 mL, ORAL, QID, PRN for control of stomach acid, # 360 mL, 0 Refill(s), Acute Active 020 50 [facility] Cyclobenzaprine hydrochloride 5 MG Oral Tablet [Flexeril] = 1 Tab, ORAL, BID, PRN Muscle spasm, # 10 Tab, 0 Refill(s), Maintenance Active 018 50 [facility] Ondansetron 4 MG Disintegrating Tablet [Zofran] = 1 DT_Tab, ORAL, TID, PRN Nausea/Vomiti ng, allow tablet to dissolve on tongue, # 12 Tab, 0 Refill(s), Soft Stop Active 018 50 [facility] Promethazine Hydrochloride 12.5 MG Oral Tablet [Phenergan] = 1 Tab, ORAL, Q6H, PRN as needed for nausea/vomiti ng, # 12 Tab, 0 Refill(s), Maintenance, Pharmacy: [facility] #[id number] Active 017 50 [facility] dextromethorphan- promethazine 15 mg-6.25 mg/5 ml oral syrup 5 mL, ORAL, Q6H, PRN for cough, # 200 mL, 0 Refill(s), Maintenance Active 016 50 [facility] Ibuprofen 800 MG Oral Tablet = 1 Tab, ORAL, TID, PRN for pain, with food or milk, # 21 Tab, 0 Refill(s), Maintenance Active 016 50 [facility] Allergies, Adverse Reactions, Alerts Substance Category Reaction Severity Reaction type Status Date Reported Comments Source morphine Assertion Drug allergy Active 50 [facility] Aleve Assertion Drug allergy Active 50 [facility] Results Order Name Results Value Reference Range Date Interpretation Comments Source AutoDif f* Auto Neutrophil Percent 54.8 % 46.0 - 78.0 12/01 [facility] AutoDif f* Auto Neutrophil Absolute 2.3 K/mm3 1.4 - 7.2 12/01 [facility] AutoDif f* Auto Lymphocyte Percent 28.7 % 9.0 - 42.0 12/01 [facility] AutoDif f* Auto Lymphocyte Absolute 1.2 K/mm3 0.8 - 4.4 12/01 [facility] AutoDif f* Auto Monocyte Percent 10.0 % 0.0 - 10.0 12/01 [facility] AutoDif f* Auto Monocyte Absolute 0.4 K/mm3 0.2 - 1.6 12/01 [facility] AutoDif f* Auto Eosinophil Percent 5.5 % 0.0 - 7.0 12/01 [facility] AutoDif f* Auto Eosinophil Absolute 0.2 K/mm3 0.0 - 0.7 12/01 [facility] AutoDif f* Auto Basophil Percent 1.0 % 0.0 - 3.0 12/01 [facility] AutoDif f* Auto Basophil Absolute 0.0 K/mm3 0.0 - 0.2 12/01 [facility] AutoDif f* Auto NRBC % 0.2 % 12/01 [facility] CBC WBC 4.30 K/mm3 4.50 - 11.00 12/01 L [facility] CBC RBC 4.91 M/mm3 4.50 - 5.90 12/01 [facility] CBC HGB 15.4 gm/dL 13.5 - 17.5 12/01 [facility] CBC HCT 45.9 % 37.0 - 49.0 12/01 [facility] CBC MCV 93.4 fL 80.0 - 99.0 12/01 [facility] CBC MCH 31.4 pg 26.0 - 34.0 12/01 [facility] CBC MCHC 33.6 gm/dL 32.5 - 35.5 12/01 [facility] CBC RDW 13.1 % 11.5 - 14.5 12/01 [facility] CBC PLT 222 K/mm3 150 - 400 12/01 [facility] CBC MPV 9.9 fL 7.4 - 10.4 12/01 [facility] CMP Sodium Level 141 mmol/L 136 - 144 12/01 [facility] CMP Potassium Level 4.3 mmol/L 3.1 - 5.2 12/01 [facility] CMP Chloride Level 103 mmol/L 101 - 111 12/01 [facility] CMP CO2/Carbon Dioxide 30 mmol/L 22 - 32 12/01 [facility] CMP Anion Gap 8 mmol/L 5 - 15 12/01 [facility] CMP Glucose, Random 94 mg/dL 70 - 110 12/01 [facility] CMP BUN 12 mg/dL 8 - 19 12/01 [facility] CMP Creatinine 1.2 mg/dL 0.7 - 1.3 12/01 [facility] CMP BUN/Creat Ratio 10 15 - 24 12/01 L [facility] CMP Osmolality, Calculated 281 mOsm/L 275 - 295 12/01 [facility] CMP Calcium Level 10.2 mg/dL 8.9 - 10.3 12/01 [facility] CMP Total Protein 7.5 gm/dL 6.5 - 8.1 12/01 [facility] CMP Albumin Level 4.8 gm/dL 3.5 - 5.0 12/01 [facility] CMP Globulin Level 2.7 gm/dL 2.6 - 4.0 12/01 [facility] CMP A/G Ratio 1.8 1.5 - 3.0 12/01 NA [facility] CMP ALP 62 IntUni t/L 30 - 114 12/01 NA [facility] CMP ALT 22 IntUni t/L 14 - 63 12/01 NA [facility] AST 25 IntUni t/L 15 - 41 12/01 [facility] Bilirubin, Total 0.7 mg/dL 0.0 - 1.2 12/01 NA N-dynahw-j-benzo quinone imine (NAPQI), a metabolite of acetaminophen (paracetamol), may generate erroneously low results in samples for patients that have taken toxic doses of acetaminophen (paracetamol) [facility] CMP GFR - Non >60 mL/min /1.73m 2 >=60 12/01 NA GFR 60 or more [id number] Moderately [id number] Severely Apgmylj86 or less Kidney FailureEstimated GFR not accurate for persons <18 or >69 years old.Equation: 186 x (Serum Creat)*EXP(-1.15 4) x (Age)*EXP(-0.203 ) x (0.742 if female) x (1.210 if ) [facility] CMP GFR - >60 mL/min /1.73m 2 >=60 12/01 [facility] Trop Troponin I <0.01 ng/mL 0.00 - 0.05 12/01 NA A Troponin value of 0.06 ng/mL or greater is consistent with myocardial injury. Interpretation requires correlation with other clinical findings.Changin g values are more significant than a single elevated value in the diagnosis of acute ischemic necrosis. [facility] UACSIf UA - Source/Collect Type Urine Clean Cat 12/01 NA Specimen Type/Source obtained by Discern Expert [facility] UAIf UA - Appearance CLER Clear 12/01 NA [facility] UAIf UA - Color YEL 12/01 NA [facility] UAIf UA - pH 7.0 5.0 - 8.0 12/01 [facility] UACSIf UA - Specific [place] 1.011 1.005 - 1.025 12/01 NA [facility] UACSIf UA - Protein NEG mg/dL Negative 12/01 NA [facility] UACSIf UA - Glucose NEG mg/dL Negative 12/01 NA [facility] UACSIf UA - Ketones NEG Negative 12/01 NA [facility] UACSIf UA - Bilirubin NEG Negative 12/01 NA [facility] UACSIf UA - Blood NEG Negative 12/01 NA [facility] UACSIf UA - Urobilinogen <2.0 mg/dL 0.1 - 2.0 12/01 NA [facility] UACSIf UA - Nitrites NEG Negative 12/01 NA [facility] UACSIf UA - Leukocyte Esterase NEG Negative 12/01 NA [facility] UACSIf Urine Culture Y/N No 12/01 NA [facility] UACSIf UA - WBC 0 /HPF 0 - 5 12/01 NA [facility] UACSIf UA - RBC 0 /HPF 0 - 2 12/01 NA [facility] UACSIf UA - Bacteria NONE 12/01 NA [facility] UACSIf UA - Epithelials, Squamous 0 /HPF 12/01 NA [facility] UACSIf UA - Mucus RARE None 12/01 [facility] UDS VANNESSA UR - Amphetamines Scrn NEG Negative 12/01 NA [facility] UDS VANNESSA UR - Barbiturates Scrn NEG Negative 12/01 [facility] UDS VANNESSA UR - Benzodiazepines Scrn NEG Negative 12/01 [facility] UDS VANNESSA UR - Cannabinoids/THC Scrn NEG Negative 12/01 [facility] UDS VANNESSA UR - Cocaine Scrn NEG Negative 12/01 [facility] UDS VANNESSA UR - Methamphetamines Scrn NEG Negative 12/01 [facility] UDS VANNESSA UR - Methadone NEG Negative 12/01 NA [facility] UDS VANNESSA UR - Opiates Scrn NEG Negative 12/01 [facility] UDS VANNESSA UR - Oxycodone NEG Negative 12/01 NA [facility] UDS VANNESSA UR - Phencyclidine Scrn NEG Negative 12/01 NA [facility] UDS VANNESSA UR - Tricyclics Screen NEG Negative 12/01 NA [facility] UDS VANNESSA UR - Footnote See Note 12/01 NA Cut off concentrations for each drug class are:Amphetamines ................ ... 500 ng/mLBarbiturate s............... .... 200 ng/mLBenzodiazep joby............ .... 150 ng/mLCocaine.... ................ .... 150 ng/mLMethadone.. ................ .... 200 ng/mLMethampheta mines........... .... 500 ng/mLOpiates.... ................ .... 100 ng/mLOxycodone.. ................ .... 100 ng/mLPhencyclidi ne.............. ..... 25 ng/mLCannabinoid s/THC ............... 50 ng/mLTricyclic Antidepressants. ......300 ng/mLEcstacy (MDMA) is detected under Methamphetamines at a cut off of 1150 ng/mL. A negative result may not necessarily detect drug free urine. Negative results can be obtained when drug is present but below the cut off level of the test. Confirmation is available upon the request of the physician.If the specimen screen is positive, then Confirmation/Zeus ntitation by QC/MS or LC-MS/MS will be added to confirm result. Additional charges apply.Performed by Discern Expert. [facility] Diagnostic Reports Report Value Date Source TMJ Bilat TMJs 05/24/20 1617h. HISTORY:Dislocation. . COMPARISON: None. TECHNIQUE: 5 Vws. FINDINGS: Bones intact with unremarkableTMJ with motion. IMPRESSION: Negative TMJs. THANK YOU FOR YOUR REFERRAL Signed by: Anival Cruz on 05/24/2020 4:34 PM 05/24/2020 [facility] Chest 1 Vw EXAMINATION: Chest 1 Vw CLINICAL HISTORY: Chest pain. COMPARISONS: Chest radiograph dated 08/07/2018. TECHNIQUE: A single portable AP view of the chest was obtained. FINDINGS: The cardiomediastinal silhouette is within normal limits in size. The pulmonary vasculature is unremarkable. No focal airspace opacity, pneumothorax or pleural effusion is seen. The osseous structures are intact . IMPRESSION: No acute disease of the chest. Signed by: Lance Fisher on 12/01/2019 7:08 AM 12/01/2019 [facility] Consultation Notes Results Value Date Source ED Physician Notes Patient: BURTON AGUIRRE Age: 30 years Sex: MALE : 1990 Chief Complaint Woke up unable to bite down, slightly off speech. Right jaw pain. Mode of Arrival Walk-In History of Present Illness 30-year-old male with history of depression resistance to the emergency department with difficulty opening his right side of his jaw that started this morning. He has no history of seizures. [place] may have a dislocated jaw and shouldn't go to the emergency department. Review of Systems 14 point review systems is completely unremarkable except history of present illness. Physical Exam Triage Vital Signs T: 98.0 F HR: 69 RR: 18 BP: 121/81 SPO2: 98% O2 Delivery: Room air HT: 185.42 cm WT: 95.25 kg(Dose Calc Wt.) WT: 95.25 kg Constitutional: no distress, well appearing, well developed Head: atraumatic, normocephalic, nonasal discharge, moist mucosal membranes, right tmj locking and popping, FAROM of bilat jaw, Eyes: normalconjunctiva, normal sclera Neck: trachea midline, no tenderness with neck ROM, no lymphadenopathy, Cardiovascular: normal rate, regular rhythm, no murmur, no gallops, no cyanosis or pallor, no peripheral edema Respiratory: CTA, no rales, no rhonchi, no wheezing, non-labored respirations, normal air movement in lung valencia Gastrointestinal: soft, non-distended, no tenderness to palpation, no guarding, no rebound Musculoskeletal: no bony deformity, full ROM of major joints Neurological: oriented x4, awake, speech normal Skin: warm, dry, no rashes, no wounds Psychiatric: normal affect, good judgment ED Course Differential Diagnosis tmj locking, tmj syndrome, dislocation, Documents Reviewed reviewed nursing notes and prior ed documentation Diagnostics General Diagnostic Result Type: TMJ Bilat Result Date: May 24, 2020 16:23 PDT Reason For Exam: Dislocation REPORT: TMJs 05/24/20 1617h.HISTORY:Dislocation. .COMPARISON: None.TECHNIQUE: 5 Vws. FINDINGS: Bones intact with unremarkableTMJ with motion. IMPRESSION: Negative TMJs.THANK YOU FOR YOUR REFERRAL Signed by: Anival Cruz on 05/24/2020 4:34 PM Re-evaluation Counseled: Regarding diagnosis, Regarding diagnostic results, Regarding treatment plan. Results were reviewed with the patient. There was a discussion regarding the diagnosis and treatment plan and the fact that no etiology can be ruled in or out with complete certainty. All questions were answered prior. There was counseling regarding the important signs and symptoms that would warrant a return to the emergency department. MDM Supervising Physician in accordance with LATOYA: Miky Sepsis Attestation: At this time, patient does not appear to be septic. Nursing Attestation Note: Nursing documentation was reviewed by me, appropriate corrections are made in the chart. Pulse Oximetry:98% on RA Normal Dragon Dictation Attestation: This medical document was created using the [employer] Computerized Dictation System. Although this document has been carefully reviewed, there may still be some phonetic and/or typographical errors. These errors are purely grammatical due to imperfections in the software program and should not be construed in any way to compromise the substance of the patient s medical care during the visit 30-year-old male presents emergency department stating that his bite is normal alignment. He thinks his right jaw may be dislocated. He states that he woke up like this. On initial evaluation I tried to relocate the jaw by pushing posteriorly and inferiorly to no avail. X-rays were then ordered which shows no acute malalignment. Dr. jc and evaluated the patient and tried to also relocate the jaw by externally pushing posteriorly and counter rotating the right lower jaw. She also found no issues, he is able to fully range of motion his mouth his posterior molars to touch she just states that they're not the appropriate bite that he has. One more attempt was made by myself, then had him range of motion in his jaw which a pop occurred during then he stated that it was within normal. Believe based on history and physical exam it's more of a T-sheet [place] locking or syndrome not dislocations. 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 *Substance Abuse Screen Substance abuse in household: No. *Tobacco Use Screen Smoker in household: No. Household tobacco concerns: No. Tobacco Use: Never smoker. Family History no pertinent family history 05/24/2020 [facility] ED Physician Notes Patient: BURTON AGUIRRE Age: 30 years Sex: MALE : 1990 History of Present Illness 30-year-old male with history of depression resistance to the emergency department with difficulty opening his right side of his jaw that started this morning. He has no history of seizures. [place] that he may have a dislocated jaw and shouldn't go to the emergency department. Medical Screening exam has been initiated; ED work-up and stabilization is in process. Triage Vital Signs HT: 187.96 cm WT: 95.25 kg Past Medical History Active Problems No active problems Social History *Alcohol Screen Household alcohol concerns: No. *Substance Abuse Screen Substance abuse in household: No. *Tobacco Use Screen Smoker in household: No. Household tobacco concerns: No. Tobacco Use: Never smoker. Radiology Results Ordered Radiology TMJ Bilat - (05/24/2020 15:51 PDT) MDM Condition _ Disposition _ 05/24/2020 [facility] ED Physician Notes Patient: BURTON AGUIRRE Age: 29 years Sex: MALE : 1990 Chief Complaint CHEST PAIN Mode of Arrival Walk-In History of Present Illness 29 year old male presents for left sided chest pain. This pain was abrupt, severe and lasted 1 minute. It occurred while laying down. Last PO intake prior to pain was at approximately 1600. He does have history of anxiety and GERD. He reports increase in 'indigestion' for the past week. He did take a 'gas X' and Miralax yesterday for constipation. He did have bilious vomiting this afternoon after belching from GERD sx. Review of Systems Constitutional: nogeneralized weakness, no fever, no chills, no unintentional weight loss Eyes: no visual changes ENMT: no ear pain,no sore throat, no nasal congestion, no hoarseness Respiratory: no cough, no shortness of breath Cardiovascular: no chest pain, no palpitations, no lower extremity edema Gastrointestinal: no vomiting, no abdominal pain, no changes in bowel movements Genitourinary: no dysuria, no hematuria, no urinary frequency Musculoskeletal: no myalgias, no arthralgias Neurologic: no focal weakness, no numbness, no headaches Heme/Lymph: no bleeding tendency, no bruising tendency, no petechiae, no swollen nodes All other systems are negative. Physical Exam Triage Vital Signs T: 97.1 F HR: 59 RR: 18 BP: 135/63 SPO2: 97% O2 Delivery: Room air HT: 187.96 cm WT: 95.25 kg(Dose Calc Wt.) WT: 95.25 kg Constitutional: no distress, wellappearing, well developed Head: atraumatic, normocephalic, nonasal discharge, moist mucosal membranes Eyes: normal conjunctiva, normal sclera Neck: trachea midline, notenderness with neck ROM Cardiovascular: normal rate, regular rhythm, no murmur, no gallops, nocyanosis or pallor, noperipheral edema Respiratory: CTA, no rales, no rhonchi, nowheezing, non-labored respirations, normal air movement in lung valencia Gastrointestinal: soft, non-distended, notenderness to palpation, noguarding, no rebound Musculoskeletal: no bony deformity, full ROM of major joints Neurological: oriented x4, awake, speech normal Skin: warm, dry, no rashes, no wounds Psychiatric: normal affect, good judgment ED Course Differential Diagnosis myocarditis, pericarditis, pneumonia, anxiety, GERD, , costochondritis Documents Reviewed reviewed nursing notes and prior ed documentation Orders Al hydroxide/Mg hydroxide/simethicone (Mylanta), 30, mL, ORAL, NOW Diagnostics Ordered Radiology Chest 1 Vw - (11/30/2019 20:42 PST) Indication: Cough Read: No infiltrative process, no blunting costovertebral angle, no effusions, mediastinum is appropriate, Results: No acute cardiopulmonary abnormality Order Name: ECG 12 Lead - (CV) Date Performed: 11/30/2019 20:16:52 PST Status: Completed Impression: Rate: 56 , Sinus rhythm, no acute ST elevations or depressions, no new T wave abnormalities Re-evaluation Counseled: Regarding diagnosis, Regarding diagnostic results, Regarding treatment plan. Results were reviewed with the patient. There was a discussion regarding the diagnosis and treatment plan and the fact that no etiology can be ruled in or out with complete certainty. All questions were answered prior to discharge. There was counseling regarding the important signs and symptoms that would warrant a return to the emergency department. MDM Scribe Attestation: This document was scribed by JOHN Yoon Scribe for provider: Andres Shah PA-C Supervising Physician: Armen Pimentel MD Sepsis Attestation: At this time, patient does not appear to be septic. Nursing Attestation Note: Nursing documentation was reviewed by me, appropriate corrections are made in the chart. Pulse Oximetry:97% on RA Normal [employer] Dictation Attestation: This medical document was created using the [employer] Computerized Dictation System. Although this document has been carefully reviewed, there may still be some phonetic and/or typographical errors. 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 In individuals his age most likely diagnosis is to include substance use, anxiety, gastric reflux, Costochondritis. Troponin is negative so myocarditis less likely normal ECG. Laboratory shows no acute abnormalities such as electrolyte disturbances that may be leading to his chest pain or anemia. Patient is currently deemed safe to be discharged and follow up outpatient as needed Diagnosis 1. Chest pain (Chest pain, unspecified, R07.9) Condition Stable Disposition Discharge to Home Prescriptions Prescribed Medications 11/30/2019 22:38 PST Al hydroxide/Mg hydroxide/simethicone, 5 mL, ORAL, QID, PRN for control of stomach acid, # 360 mL, 0 Refill(s), Acute Patient Education GERD (Adult) Follow-Up Provider: Mick Garcia Date: Within 2-3 days, only if needed Address: [address] [place] [id number] [facility] (1) MSEI Information MSEI MD/INFANT LEAD TEACHER/PA Time Patient Seen face to face: Date and time not entered Past Medical History Active Problems No active problems Past Surgical History no pertinent past surgical history Allergies Aleve morphine Home Medications dextromethorphan-promethazine 15 mg-6.25 mg/5 ml oral syrup, 5 mL, ORAL, Q6H, PRN Flexeril 5 mg oral tablet, 5 mg, 1 Tab, ORAL, BID, PRN ibuprofen 800 mg oral tablet, 800 mg, 1 Tab, ORAL, TID, PRN Phenergan 12.5 mg oral tablet, 12.5 mg, 1 Tab, ORAL, Q6H, PRN Zofran ODT 4 mg oral tablet, disintegrating, 1 DT_Tab, ORAL, TID, PRN Social History *Alcohol Screen Household alcohol concerns: No. *Substance Abuse Screen Substance abuse in household: No. *Tobacco Use Screen Smoker in household: No. Household tobacco concerns: No. Tobacco Use: Never smoker. Family History no pertinent family history Lab Results Labs All 24H Lab Results Date VANNESSA UR - Amphetamines Scrn Negative - 11/30/19 20:42 PST [facility] - Barbiturates Scrn Negative - 11/30/19 20:42 PST [facility] UR - Benzodiazepines Scrn Negative - 11/30/19 20:42 PST [facility] UR - Cannabinoids/THC Scrn Negative - 11/30/19 20:42 PST [facility] UR - Cocaine Scrn Negative - 11/30/19 20:42 PST [facility] UR - Methadone Negative - 11/30/19 20:42 PST [facility] UR - Opiates Scrn Negative - 11/30/19 20:42 PST [facility] UR - Phencyclidine Scrn Negative - 11/30/19 20:42 PST [facility] UR - Tricyclics Screen Negative - 11/30/19 20:42 PST [facility] UR - Methamphetamines Scrn Negative - 11/30/19 20:42 PST [facility]ESSA UR - Footnote See Note 11/30/19 20:42 PST Auto NRBC % 0.2 % 11/30/19 21:20 PST GFR - Non >60 mL/min/1.73m2 11/30/19 21:20 PST GFR - >60 mL/min/1.73m2 11/30/19 21:20 PST Auto Neutrophil Percent 54.8 % 11/30/19 21:20 PST Auto Neutrophil Absolute 2.3 K/mm3 11/30/19 21:20 PST Auto Lymphocyte Percent 28.7 % 11/30/19 21:20 PST Auto Lymphocyte Absolute 1.2 K/mm3 11/30/19 21:20 PST Auto Monocyte Percent 10.0 % 11/30/19 21:20 PST Auto Monocyte Absolute 0.4 K/mm3 11/30/19 21:20 PST Auto Basophil Percent 1.0 % 11/30/19 21:20 PST Auto Basophil Absolute 0.0 K/mm3 11/30/19 21:20 PST Auto Eosinophil Percent 5.5 % 11/30/19 21:20 PST Auto Eosinophil Absolute 0.2 K/mm3 11/30/19 21:20 PST VANNESSA UR - Oxycodone Negative 11/30/19 20:42 PST Urine Culture Y/N No 11/30/19 20:42 PST WBC 4.30 K/mm3 (LOW) 11/30/19 21:20 PST RBC 4.91 M/mm3 11/30/19 21:20 PST HGB 15.4 gm/dL 11/30/19 21:20 PST HCT 45.9 % 11/30/19 21:20 PST MCV 93.4 fL 11/30/19 21:20 PST MCH 31.4 pg 11/30/19 21:20 PST MCHC 33.6 gm/dL 11/30/19 21:20 PST RDW 13.1 % 11/30/19 21:20 PST PLT 222 K/mm3 11/30/19 21:20 PST MPV 9.9 fL 11/30/19 21:20 PST Sodium Level 141 mmol/L 11/30/19 21:20 PST Potassium Level 4.3 mmol/L 11/30/19 21:20 PST Chloride Level 103 mmol/L 11/30/19 21:20 PST CO2/Carbon Dioxide 30 mmol/L 11/30/19 21:20 PST Anion Gap 8 mmol/L 11/30/19 21:20 PST Glucose, Random 94 mg/dL 11/30/19 21:20 PST BUN 12 mg/dL 11/30/19 21:20 PST Creatinine 1.2 mg/dL 11/30/19 21:20 PST BUN/Creat Ratio 10 (LOW) 11/30/19 21:20 PST Osmolality, Calculated 281 mOsm/L 11/30/19 21:20 PST Calcium Level 10.2 mg/dL 11/30/19 21:20 PST Total Protein 7.5 gm/dL 11/30/19 21:20 PST Albumin Level 4.8 gm/dL 11/30/19 21:20 PST Globulin Level 2.7 gm/dL 11/30/19 21:20 PST A/G Ratio 1.8 11/30/19 21:20 PST Bilirubin, Total 0.7 mg/dL 11/30/19 21:20 PST AST 25 IntUnit/L 11/30/19 21:20 PST ALT 22 IntUnit/L 11/30/19 21:20 PST ALP 62 IntUnit/L 11/30/19 21:20 PST Troponin I <0.01 ng/mL 11/30/19 21:20 PST UA - Source/Collect Type Urine Clean Cat 11/30/19 20:42 PST UA - Color Yellow 11/30/19 20:42 PST UA - Appearance Clear 11/30/19 20:42 PST UA - Specific [place] 1.011 - 11/30/19 20:42 PST UA - pH 7.0 11/30/19 20:42 PST UA - Protein Negative mg/dL 11/30/19 20:42 PST UA - Glucose Negative mg/dL 11/30/19 20:42 PST UA - Ketones Negative 11/30/19 20:42 PST UA - Bilirubin Negative 11/30/19 20:42 PST UA - Blood Negative 11/30/19 20:42 PST UA - Urobilinogen <2.0 mg/dL 11/30/19 20:42 PST UA - Nitrites Negative 11/30/19 20:42 PST UA - Leukocyte Esterase Negative 11/30/19 20:42 PST UA - WBC 0 /HPF 11/30/19 20:42 PST UA - RBC 0 /HPF 11/30/19 20:42 PST UA - Epithelials, Squamous 0 /HPF 11/30/19 20:42 PST UA - Bacteria None 11/30/19 20:42 PST UA - Mucus Rare 11/30/19 20:42 PST 12/01/2019 [facility] Vital Signs Vital Sign Value Date Comments Source Oxygen delivery Room air (05/24/20 3:53 PM) 05/24/2020 50 [facility] Temperature (F) 98.0 [degF] 05/24/2020 50 [facility] Pulse rate 69 bpm 05/24/2020 50 [facility] Respiratory rate 18 br/min 05/24/2020 50 [facility] Pulse Oximetry 98 % 05/24/2020 50 [facility] Systolic BP 121 mm[Hg] 05/24/2020 50 [facility] Diastolic BP 81 mm[Hg] 05/24/2020 50 [facility] BP site Right arm (05/24/20 3:53 PM) 05/24/2020 50 [facility] Weight (kg) 95.25 kg 05/24/2020 50 [facility] Weight measured method Standing scale (05/24/20 3:53 PM) 05/24/2020 50 [facility] HeightLength (cm) 185.42 cm 05/24/2020 50 [facility] Dose calculation weight (kg) 95.25 kg 05/24/2020 50 [facility] Oxygen delivery Room air (11/30/19 10:57 PM) 12/01/2019 50 [facility] Pulse rate 60 bpm 12/01/2019 50 [facility] Respiratory rate 18 br/min 12/01/2019 50 [facility] Systolic BP 124 mm[Hg] 12/01/2019 50 [facility] Diastolic BP 77 mm[Hg] 12/01/2019 50 [facility] Pulse Oximetry 98 % 12/01/2019 50 [facility] Oxygen delivery Room air (11/30/19 8:38 PM) 12/01/2019 50 [facility] Temperature (F) 97.1 [degF] 12/01/2019 50 [facility] Pulse rate 59 bpm 12/01/2019 50 [facility] Respiratory rate 18 br/min 12/01/2019 50 [facility] Pulse Oximetry 97 % 12/01/2019 50 [facility] Systolic BP 135 mm[Hg] 12/01/2019 50 [facility] Diastolic BP 63 mm[Hg] 12/01/2019 50 [facility] BP site Right arm (11/30/19 8:38 PM) 12/01/2019 50 [facility] Weight (kg) 95.25 kg 12/01/2019 50 [facility] Weight measured method Standing scale (11/30/19 8:38 PM) 12/01/2019 50 [facility] Dose calculation weight (kg) 95.25 kg 12/01/2019 50 [facility] Encounters Location Location Details Encounter Type Encounter Number Reason For Visit Attending Provider ADM Date DC Date Status Source 50 50 [facility] Emergency [id number] CHEST PAIN Jorge Loren 12/01 Active [facility] 50 50 [facility] Emergency [id number] DISLOCATE D JAW Karla Storm 05/24 Active [facility] Social History Social History Date Source Social History TypeResponse Smoking Status Is there a smoker in the household? No; *Do you have concerns about tobacco use in household? No; Never smoker entered on: 10/09/16 10/09/[address] [place] [address] Social History TypeResponse Smoking Status Is there a smoker in the household? No; *Do you have concerns about tobacco use in household? No; Never smoker entered on: 10/09/16 10/09/[address] [place] [address]
--- OUTSIDE RECORDS SUMMARY | 2024-12-10 08:11 | XMS_ITS ---
Author Organization [facility] [employer] Address [address] [facility] [address] [place] [address] Care Team Providers Care Spinning Frame Cleaner Name Role Phone ALDO GASCA Primary Care Provider Francia Guillaume Unavailable [phone] DevinDelaney grullonna Unavailable [phone] REASON FOR VISIT Therapy Follow Up, anxiety, depression, panic attacks Medications Medication SIG (Take, Route, Frequency, Duration) [...] point) Encounters Encounter [facility] [address] [facility] [address] [place] [address] 12/06/2024 Doris Beltran Major depressive disorder, recurrent, mild F33.0 ; Generalized anxiety disorder F41.1 and Panic disorder [episodic paroxysmal anxiety] without agoraphobia F41.0 Assessments Encounter Date Diagnosis (ICD Code) Assessment Notes Treatment Notes Treatment Clinical Notes Section Notes 12/06/2024 Major depressive disorder, recurrent, mild (ICD-10 - F33.0) 12/06/2024 Generalized anxiety disorder (ICD-10 - F41.1) 12/06/2024 Panic disorder [episodic paroxysmal anxiety] without agoraphobia (ICD-10 - F41.0) 12/06/2024 Other Client focused on wanting to have a son with this (sonnogram wasn't conclusive) because he already has 2 daughters. Therapist utilized a cognitive behavioral intervention to help him explore how his daughters may keep the family name when and if they get . He can teach them anything he would teach a boy. PHQ=11 moderate PING=5 mild Plan Of Treatment Next Appt Details Follow Up: 4 Weeks, Reason: therapy follow up Progress Notes * POLO AGUIRREDOB:1990 ( 34 yo M)Acc No.[id number]:12/06/2024 Patient: POLO AMARAL Provider: Jones BELTRAN LCSW :1990 A ge:34 Y S ex:Male Date:12/06/2024 Address:[address] [place], [place] [id number] Pcp:ALDO ONEILP-C Data: * Time Tracker: * Date Start Time End Time Duration User Type Captured By Mode Notes 12/06/2024 08:00 AM 08:44 AM 00:44:00 Therapist Doris Beltran anual * Chief Complaints: * 1 . Therapy Follow Up. 2. Anxiety. 3. Depression. 4. Panic attacks. * HPI: F unctional Status: Client is here today for psychotherapy to treat anxiety, depression, and panic d/o. Based on our session, I think the patient is making moderate progress. At this time I do not recommend changes to the treatment plan. I do not think the patient poses significant risk of harm to self or others at this time. Discussed continued treatment with patient. D epression Screening: PING-7 (2018 Edition) F eeling nervous, anxious, or on edge?Several days, N ot being able to stop or control worrying S everal days, W orrying too much about different things S everal days, T rouble relaxing S everal days, B eing so restless that it is hard to sit still S everal days, B ecoming easily annoyed or irritable N ot at all, F eeling afraid as if something awful might happen N ot at all, T otal PING-7 Score 5 , I f you checked any problems, how difficult have they made it for you to do your work, take care of things at home, or get along with other people? S omewhat difficult, I nterpretation of Total ( 5 to 9) Mild. C [place]-Suicide Severity Rating Scale: Suicide Risk [...] the days, P oor appetite or overeating S everal days, F eeling bad about yourself or that you are a failure, or have let yourself or your family down M ore than half the days, T rouble concentrating on things, such as reading the newspaper or watching television N ot at all, M oving or speaking so slowly that other people could have noticed; or the opposite, being so fidgety or restless that you have been moving around a lot more than usual N ot at all, T houghts that you would be better off or of hurting yourself in some way N ot at all, T otal Score 1 1, I nterpretation M oderate Depression. I ntervention D epression Screening Findings P ositve, F ollow-Up for Depression M ental health treatment assessment, Patient follow-up to return when and if necessary, Suicide Risk Assessment Performed 0 12/06/2024 PHQ-9 Client denies plan or intent to harm himself or others., A dditional Evaluation for Depression P sychiatric interview and evaluation, N leandra of the standardized tool used for adult depression screening: [facility] (PHQ-9). * Behavioral History: P ast psychiatric Hospitalization:No. H istory of suicidal attempt?:No. * Family History: M matti Grandmother: Intracranial aneurysm . * Social History: T obacco Use: T obacco use other than smoking A re you an other tobacco user? Y es stopped chew tobacco 09/15. T obacco Control (Standard) T obacco use: Jeanette Jeong dditional Findings: Tobacco user C vanessa tobacco, [...] es, D o you have Power of Berry Picker for Health or Medical? N o. S ocial History: H ousenikolay M arital Status: M arried, N umber [...] and reconciled with the patient * Examination: P sychiatry: Anusha smith is casually groomed and oriented X 3. Assessment: * Assessment: 1. M ajor depressive disorder, recurrent, mild - F33.0 (Primary) 2 . G eneralized anxiety disorder - F41.1 3 . P anic disorder [episodic paroxysmal anxiety] without agoraphobia - F41.0 S pecify :Src Diagnosis Name: Panic disorder [episodic paroxysmal anxiety] Plan: * Treatment: * Procedure Codes: 9 0834 PSYCHOTHERAPY W/PATIENT 45 MINUTES, 23786 BEHAV ASSMT W/SCORE & DOCD/STAND INSTRUMENT, G8431 CLIN DEPRESSION SCREEN DOC * Follow Up: 4 Weeks (Reason: therapy follow up) * Billing Information: * Visit Code: * Procedure Codes: 14796 PSYCHOTHERAPY W/PATIENT 45 MINUTES. 28427 BEHAV ASSMT W/SCORE & DOCD/STAND INSTRUMENT. G8431 CLIN DEPRESSION SCREEN DOC. * R OPERATOR Sign off status: Completed Signatures: No Ad Hoc Signature Added true * Provider: Jones BELTRAN LCSW Date: 0 12/06/2024 Generated for Kathia jones/Rashard/Garcia on: 0 12/10/2024 08:11 AM AUGER OPERATOR History and Physical Notes * HPI (History [...] half the days Poor appetite or overeating: Several day s Feeling bad about yourself o r that you are a failure, or have let yourself or your family down: More than half the days Trouble concentrating on thi ngs, such as reading the newspaper or watching television: Not at all Moving or speaking so slowly that other people could have noticed; or the opposite, being so fidgety or restless that you have been moving around a lot more than usual: Not at all Thoughts that you would be b zeinab off or of hurting yourself in some way: Not at all Total Score: 11 Interpretation: Moderate Depression Intervention Depression Screening Findings: P ositve Follow-Up for Depression: [facility] treatment assessment, Patient follow-up to return when and if necessary Suicide Risk Assessment Performed: 12/06 PHQ-9 Client denies plan or intent to harm himself or others. Additional Evaluation for De pression: Psychiatric interview and evaluation Name of the standardized too l used for adult depression screening:: Patient Health Questionnaire (PHQ-9) Depression Screening PING-7 (2018 Edition) Feelin g nervous, anxious, or on edge: Several days Not being able to stop or control worryi ng: Several days Worrying too much about different things : Several days Trouble relaxing: Several days Being so restless that it is hard to sit still: Several days Becoming easily annoyed or irritable: No t at all Feeling afraid as if something awful mary ht happen: Not at all Total PING-7 Score: 5 If you checked any problems, how difficult have they made it for you to do your work, take care of things at home, or get along with other people?: Somewhat difficult Interpretation of Total: (5 to 9) Mild [place]-Suicide Severity Rating Scale Suicide Risk (CSRS-screener) in [...] Category Sub-Category Detail Notes Category Not es Psychiatry Client is lemuel lam groomed and oriented X 3
--- OUTSIDE RECORDS SUMMARY | 2024-12-10 08:12 | XMS_ITS ---
Author Organization [facility] Address [facility] [place] [address] Care Team Providers Care Cabinet Finisher Name Role Phone ALDO GASCA Primary Care Provider Francia Guillaume Unavailable [phone] REASON FOR VISIT Appointment Social History Sex Assigned At : Social History Observation Description Sex Assigned At Male Encounters Encounter Location Date Provider Diagnosis [place] [id number] [facility] [address] [place] [address] 10/17/2024 Francia Villar Plan Of Treatment No Information Progress Notes * POLO AGUIRREDOB:1990 ( 34 yo M)Acc No.[id number]:10/17/2024 Patient: POLO AMARAL :1990 A ge:34 Y S ex:Male Address:[address] [place], [address] * true * Date: Generated for Kathia jones/Rashard/eTransmitting on: 0 12/10/2024 08:11 AM DEPUTY CHIEF EXECUTIVE
--- OUTSIDE RECORDS SUMMARY | 2024-12-10 08:12 | XMS_ITS | Clinical Summary ---
Author Organization [facility] Address [address] [place] [address] Care Team Providers Care Hat And Cap Parts Cutter Hand Name Role Phone Nehemiah Zabala MD Primary Care Provider [phone] Allergies Active Allergy Reactions Criticality Noted Date Comments Aspirin Hives Low 01/08/2021 Taken as a kid Morphine Vomiting 01/19/2023 Medications ibuprofen 200 MG tablet Take 200 mg by mouth every 6 (six) hours as needed for Pain. Active albuterol sulfate HFA 108 (90 Base) MCG/ACT inhalerIndicatio ns:Mild intermittent asthma with acute exacerbation (HHS/HCC) Inhale 2 puffs into the lungs every 6 (six) hours as needed for Wheezing. 8 g 3 Active Additional Information Patient not taking.Reported on 01/19/2023 fluticasone propionate (FLONASE) 50 MCG/ACT nasal sprayIndications :Nasal congestion,Ear fullness, bilateral 1 spray by Each Nostril route 2 (two) times a day. 16 g Active Active Problems Problem Noted Date Diagnosed Date BMI 30.0-30.9,adult 01/19/2023 Gastroesophageal reflux disease without esophagi tis 02/01/2021 Mild intermittent asthma with acute exacerbation (HHS/HCC) 02/01/2021 Arthritis of knee, right 02/01/2021 Tear of medial meniscus of r ight knee, current, unspecified tear type, initial encounter 01/08/2021 Chronic toe pain, left foot 01/08/2021 Resolved Problems Problem Noted Date Diagnosed Date Resolved Date Physical exam 01/08/2021 01/11/2021 Immunizations Name Administration Dates Next Due Dtp 01/19/1994,09/08/1993,1992 Hib 09/08/1993,1992 Hib (Generic) 09/08/1993,1992 MMR 01/19/1994 Opv 01/19/1994,09/08/1993,1992 Polio Opv (Generic) 01/19/1994,09/08/1993,1991 Family History Medical History Relation Comments No Known Problems Father Brain Aneurysm Maternal Grandmother Stroke Maternal Grandmother No Known Problems Mother Alzheimers Paternal Grandfather Stroke Paternal Grandfather Relation Status Comments Father Maternal Grandmother Alive Mother Paternal Grandfather Alive Social History Tobacco Use Types Packs/Day Years Used Date Smoking Tobacco: Never Smokeless Tobacco: Former Chew Alcohol Use Standard Drinks/Week Comments Yes 0 (1 standard drink = 0.6 oz pur e alcohol) socially- 4-5 beers on Fridays PHQ-2 Answer Date Recorded Patient Health Questionnaire-2 Score 0 01/19/2023 Sex and Gender Information Value Date Recorded Sex Assigned at Not on file Legal Sex Male 6:31 PM CDT Gender Identity Not on file Sexual Orientation Not on file Last Filed Vital Signs Vital Sign Reading Time Taken Comments Blood Pressure 108/76 01/19/2023 11:03 AM CDT Pulse 68 01/19/2023 11:03 AM CDT Temperature 36.8 C (98.3 F) 01/19/2023 11:03 AM CDT Respiratory Rate 16 01/19/2023 11:03 AM CDT Oxygen Saturation 97% 01/19/2023 11:03 AM CDT Inhaled Oxygen Concentration - - Weight 100.7 kg (222 lb) 01/19/2023 11:03 AM CDT Height 181.6 cm (5' 11.5 ) 01/19/2023 11:03 AM C DT Body Mass Index 30.53 01/19/2023 11:03 AM CDT Plan of Treatment Health Maintenance Due Date Last Done Comments Pneumococcal Vaccine: Pediatrics (0 to 5 Years) and At-Risk Patients (6 to 64 Years) (1 of 2 - PCV) 1998 DTaP, Tdap and Td Vaccines ( 1 - Tdap) 2011 01/19/1994, 09/08/1993, 1992 Hepatitis B Vaccines (1 of 3 - 19+ 3-dose series) 2011 Annual Physical 01/08/2022 01/08/2021 PHQ-2 (Physician Kake) 01/20/2024 01/19/2023 COVID-19 Vaccine (3 - 2023-2 5 season) 2024 06/17/2021, 05/27/2021 Influenza Adult (#1) 2024 PHQ-2 (Physician Kake) 10/23/2024 01/19/2023 Hepatitis C Completed 01/19/2023 HPV Vaccines Aged Out No longer eligi ble based on patient's age to complete this topic Meningococcal B Vaccine Aged Out No l onger eligible based on patient's age to complete this topic Meningococcal Vaccine Aged Out No jaciel julio césar eligible based on patient's age to complete this topic RSV Immunizations Under 20 Months Aged Out No longer eligible b ased on patient's age to complete this topic Procedures Procedure Name Priority Date/Time Associated Diagnosis Comments HEPATITIS C ANTIBODY Routine 01/19/2023 12:14 PM CDT Need for hepatitis C screening test Extensive tattoos from Last 3 Months or Most Recently Relevant to Health Maintenance Results * HEPATITIS C ANTIBODY (01/19/2023 12:14 PM CDT) HEPATITIS C AB NON-REACTI VE NON-REACT HEMAL 01/20/2023 8:02 PM CDT [facility] Comment: ANTIBODIES TO HCV NOT DETECTED. DOES NOT EXCLUDE THE POSSIBILITY OF EXPOSURE TO HCV. 01/19/2023 12:1 4 PM CDT Leesa Lopez MD LABORATORY Final Result [facility] [address] [place] [address], [id number] from Last 3 Months or Most Recently Relevant to Health Maintenance Insurance [facility] Care Teams Hat And Cap Parts Cutter Hand Relationship Specialty Start Date End Date Nehemiah Zablaa MD [address] [address] PCP - General INTERNAL MEDICINE 03/27/23
--- OUTSIDE RECORDS SUMMARY | 2024-12-10 08:12 | XMS_ITS | Clinical Summary ---
Author Organization [facility] Care Team Providers Care Surgical Lead Name Role Phone Unavailable Primary Care Provider Unavailabl e Immunizations Immunization Administration Dates Next Due Covid-19, Mrna, Lnp-s, Pf, 30 Mcg/0.3 Ml Dose (P fizer) 06/17/2021,05/27/2021 Social History Tobacco Use Types Packs/Day Years Used Date Smoking Tobacco: Never Assessed Sex and Gender Information Value Date Recorded Sex Assigned at Not on file Legal Sex Male 12:46 PM [employer] Gender Identity Not on file Sexual Orientation Not on file Plan of Treatment Health Maintenance Due Date Last Done Comments Hepatitis C Virus (HCV) Screening 1992 TdaP Immunization 1992 Hepatitis B Immunization (1 of 3 - 19+ 3-dose series) 2011 Influenza Immunization (#1) 2024 SARS-COV-2 Immunization (2023- season) 2024 06/17/2021, 05/27/2021 Respiratory Syncytial Virus (RSV) Immunization (Adult) (1 - 1-dose 75+ series) 2067 DTaP/Tdap/Td Immunization Discontinued 1993, 09/08/1993, 1992 Meningococcal Immunization (ACWY) Aged Out No longer eligible based on patient's age to complete this topic Pneumococcal Immunization Combined Aged Out No longer eligible based on patient's age to complete this topic Rotavirus Immunization Aged Out No lo nger eligible based on patient's age to complete this topic
--- OUTSIDE RECORDS SUMMARY | 2024-12-10 08:12 | XMS_ITS | Continuity of Care Document ---
Author Name [facility] Organization [facility] Care Team Providers Care Production Broacher Name Role Phone [facility] Unavailable Unavailable Problems Combined list of problems from Department of [facility] and [facility] facilities. It does not include entries that were removed or entered in error. Problem Status Onset Date Problem Type Date of Resolution Comments Source Pain in left ankle and joints of left foot Active 01/25/20 18 Condition DoD Pain in lower limb Active 01/25/[address] [place] [address] [place] Low back pain Active Condition DoD Segmental and somatic dysfunction of lumbar region Active Condition DoD Segmental and somatic dysfunction of thoracic region Active Condition DoD Acquired hallux limitus of left great toe Active Condition [address] [place] [address] Adjustment disorder with mixed anxiety and depressed mood Active Condition [address] [place] [address] Allergic rhinitis Active Condition [facility]28 [facility] Eustachian tube dysfunction Active Condition [address] [place] [address] Exostosis of left foot Active Condition [address] [place] [address] Pseudofolliculitis barbae Active Condition [address] [place] [address] Segmental and somatic dysfunction Active Condition [address] [place] [address] Tobacco user1 Active Condition Proble m added based off tobacco use documented in social history [address] [place] [address] Toe joint painful on movement Active Condition [address] [place] [address] Medications Combined list of outpatient medications from [facility] and [facility] facilities.Medications provided include 1) outpatient medications from the last 15 months, and 2) patient-reported medications. Medication Details Route Status Patient Instructions Prescription Expires Prescription Number Last Dispense Date Ordering Provider Order Date Order Qty Source acetaminoph en 325 mg oral tablet 2 tab(s), Oral, every 4 hr, PRN pain or fever, # 30 tab(s), 0 total refill(s ), Acute, 6/30/20 2:00:00 AM CDT, [facility] Oral (given by mouth) Complet ed 04/21/2020 30.0 0028A[facility] [place] albuterol 90 mcg/inh inhalation powder 2 puff(s), Inhale, every 4 hr, PRN as needed, # 1 EA, 0 total refill(s ), Maintena nce Inhala tion (breat he in) Ordered 1.0 0028A-[facility] [place] ALBUTEROL SULFATE HFA (albuterol sulfate), 90 MCG, HFA AER AD, INHALATION, TEVA [place], 8.5 g CANISTER ALBUTERO L SULFATE HFA (albuter ol sulfate) , 90 MCG, HFA AER AD, INHALATI ON, TEVA [place], 8.5 g CANISTER Start Date: 05/22/19 Stop Date: 08/28/19 Status: Disconti nued Discont inued 08/28/2019 No Facilit y Access ALBUTEROL SULFATE, 90 MCG, HFA AER AD, INHALATION ALBUTERO L SULFATE, 90 MCG, HFA AER AD, INHALATI ON Start Date: 05/22/19 Stop Date: 07/04/19 Status: Disconti nued Discont inued 07/04/2019 No Facilit y Access Augmentin 875 mg-125 mg oral tablet 1 tab(s), Oral, every 12 hr, X 7 days, # 14 tab(s), 0 total refill(s ), Acute, 11/05/19 9:42:00 PM [facility], [facility] pharmacy dispense (Rx) Oral (given by mouth) Complet ed 11/06/2019 14.0 [facility] Clar[facility] 10 mg oral tablet 1 tab(s), Oral, Daily, PRN allergy symptoms , # 90 tab(s), 3 total refill(s ), Maintena nce, Route to [facility] Oral (given by mouth) Ordered 06/02/2020 90.0 0028C -[facility] [place] Flonase 50 mcg/inh nasal spray 2 spray(s) , Nostril- Both, Daily, # 48 g, 3 total refill(s ), Maintena nce, Route to [facility] Nostri l-Both (into the nose) Ordered 04/02/2020 48.0 0028C [facility] [place] hydrOXYzine hydrochlori de 25 mg oral tablet 1 tab(s), Oral, QID, PRN as needed for anxiety, # 40 tab(s), 2 total refill(s ), Acute, 05/25/20 8:12:00 AM CDT, Called to Pharmacy (Rx) Oral (given by mouth) Discont inued 05/25/2020 40.0 0028C[facility] [place] ibuprofen 800 mg, Oral, 0 total refill(s ), Maintena nce Oral (given by mouth) Ordered 0028A[facility] [place] ibuprofen 400 mg oral tablet TAKE TWO TABLETS BY MOUTH THREE TIMES A DAY WITH FOOD NEEDED FOR PAIN OR INFLAMMA TION, Maintena nce Discont inued 08/28/2019 Ambulat ory Pharmac y ibuprofen 800 mg oral tablet TAKE ONE TABLET BY MOUTH THREE TIMES A DAY WITH FOOD NEEDED FOR PAIN OR INFLAMMA TION, Maintena nce Discont inued 08/28/2019 Ambulat ory Pharmac y ibuprofen 800 mg oral tablet 1 tab(s), Oral, every 8 hr, # 30 tab(s), 0 total refill(s ), Acute, 11/03/19 2:00:00 AM [facility], [facility] pharmacy dispense (Rx) Oral (given by mouth) Complet ed 11/03/2019 30.0 0028A[facility] [place] Imodium A-D 2 mg oral tablet 1 tab(s), Oral, every 4 hr, PRN loose stool, take 2 tabs now, then 1 tab as needed every 4 hours for loose stool. not to exceed 8 capsules , or 16 mg, in 24 hours, X 1 days, # 8 tab(s), 0 total refill(s ), Acute, 07/05/19 12:27:00 PM CDT, [facility] pharmacy dispense (Rx) Oral (given by mouth) Complet ed 07/05/2019 8.0 0028C[facility] [place] loperamide 2 mg oral capsule cap(s), Oral, every 4 hr, PRN as needed for loose stool, TAKE TWO CAPSULES BY MOUTH NOW. THEN TAKE ONE AFTER EACH LOOSE STOOL (UP TO EIGHT CAPSULES PER DAY), # 60 cap(s), Maintena nce Oral (given by mouth) Discont inued 08/28/2019 60.0 Ambulat ory Pharmac y loperamide 2 mg oral tablet 1 tab(s), Oral, every 4 hr, PRN loose stool, not to exceed 16 mg/day, # 24 tab(s), 0 total refill(s ), Acute, 03/26/20 2:00:00 AM CDT, Route to [facility] Oral (given by mouth) Complet ed 03/26/2020 24.0 0028A[facility] [place] loratadine- pseudoephed rine 10 mg-240 mg oral tablet, extended release TAKE ONE TABLET BY MOUTH EVERY DAY FOR ALLERGIE S AND CONGESTI ON, Maintena nce Discont inued 08/28/2019 Ambulat ory Pharmac y Rosser 5 mg-325 mg oral tablet 1 tab(s), Oral, every 4 hr, PRN pain, # 40 tab(s), 0 total refill(s ), Maintena nce, Called to Pharmacy (Rx) Oral (given by mouth) Ordered 40.0 0028AN [facility] [place] ondansetron 4 mg oral tablet, disintegrat ing tab(s), Oral, every 8 hr, PRN as needed for Nausea or Vomiting , DISSOLVE 1 TABLET BY MOUTH EVERY 4-6 HOURS NEEDED FOR NAUSEA and VOMITING , # 10 tab(s), Maintena nce Oral (given by mouth) Discont inued 08/28/2019 10.0 Ambulat ory Pharmac y ondansetron 8 mg oral tablet, disintegrat ing 1 tab(s), Oral, every 8 hr, PRN Nausea or Vomiting , # 10 tab(s), 0 total refill(s ), Maintena nce, Route to [facility] Oral (given by mouth) Discont inued 05/25/2020 10.0 0028AN [facility] [place] oxymetazoli ne 0.05% nasal spray INHALE 2 SPRAYS IN EACH NOSTRIL TWICE A DAY (DISCONT INUE USE AFTER THREE DAYS), Maintena nce Discont inued 08/28/2019 Ambulat ory Pharmac y oxymetazoli ne 0.05% nasal spray 3 spray(s) , Nostril- Both, BID, # 15 mL, 0 total refill(s ), Acute, [facility] pharmacy dispense (Rx) Nostri l-Both (into the nose) Complet ed 11/01/2019 15.0 0028A[facility] [place] ProAir HFA 90 mcg/inh inhalation aerosol INHALE 2 PUFFS BY MOUTH EVERY 4-6 HOURS NEEDED FOR WHEEZING , Maintena nce Discont inued 05/25/2020 Ambulat ory Pharmac y Robitussin DM To Go 20 mg-200 mg/10 mL oral liquid 10 mL, Oral, every 4 hr, PRN cough, # 120 mL, 0 total refill(s ), Acute, 11/02/19 2:00:00 AM [facility], [facility] pharmacy dispense (Rx) Oral (given by mouth) Complet ed 11/02/2019 120.0 0028A[facility] [place] Tessalon Perles 100 mg oral capsule 1 cap(s), Oral, TID, PRN cough, X 10 days, # 30 cap(s), 0 total refill(s ), Acute, 10/21/19 7:06:00 PM [facility], [facility] pharmacy dispense (Rx) Oral (given by mouth) Complet ed 10/22/2019 30.0 0028A[facility] [place] traMADol 50 mg oral tablet TAKE 1 TO 2 TABLETS BY MOUTH EVERY SIX HOURS NEEDED FOR PAIN (DO NOT EXCEED EIGHT TABLETS PER DA Y), Maintena nce Discont inued 08/28/2019 Ambulat ory Pharmac y Vistaril 25 mg oral capsule 1 cap(s), Oral, QID, PRN as needed for anxiety, # 40 cap(s), 0 total refill(s ), Maintena nce Oral (given by mouth) Ordered 40.0 0028A-[facility] [place] Zofran ODT 4 mg oral tablet, disintegrat ing 1 tab(s), Oral, every 8 hr, PRN nausea/v omiting, # 10 cap(s), 0 total refill(s ), Maintena nce, Called to Pharmacy (Rx) Oral (given by mouth) Ordered 10.0 0028A[facility] [place] Zofran ODT 8 mg oral tablet, disintegrat ing 1 tab(s), Oral, TID, PRN nausea or vomiting , # 10 tab(s), 0 total refill(s ), Acute, 03/26/20 2:00:00 AM CDT[facility] (given by mouth) Complet ed 03/26/2020 10.0 0028A[facility] [place] Zoloft 25 mg oral tablet See Instruct ions, Take 1 tab by mouth daily for 2 weeks. If tolerate d can increase to 2 tabs daily., # 80 tab(s), 0 total refill(s ), Maintena nce, Called to Pharmacy (Rx) Discont inued 05/25/2020 80.0 0028C-[facility] [place] Zoloft 50 mg oral tablet 1 tab(s), Oral, Daily, # 30 tab(s), 0 total refill(s ), Maintena nce Oral (given by mouth) Ordered 30.0 0028A-[facility] [place] Allergies, Adverse Reactions, Alerts Combined list of allergies from [facility] Defense and [facility] facilities. It does not include entries that were removed or entered in error. Substance Category Reaction Severity Reaction type Status Date Reported Comments Source Advil Drug allergy [facility] Food allergy Unknown Active [facility] No Known Allergies Drug allergy (disorder) active 12/15/2015 Yovani Griffin [facility] Immunizations Combined list of available immunizations from the Department of Defense and Veterans Affairs facilities. 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 Status Comments Source measles and rubella virus vaccine 0 2018 04 () Not Given measles and rubella virus vaccine DoD measles, mumps and rubella virus vaccine 2 2018 [id number] Merck (MSD) complet ed measles, mumps and rubella virus vaccine DoD influenza virus vaccine, inactivated 2018 TULIO Field hodan, left (delt oid) [id number] 141 Allihubirus, A [employer] complet ed influenza virus vaccine, inactivat ed 08/27/19 Given 0028C-[facility] [place] Influenza, injectable, quadrivalent, preservative free 0 2018 [id number] 150 Seqirus (SEQ) complet ed Influenza , injectabl e, quadrival ent, preservat joselyn free DoD tuberculin purified protein derivative 2018 zzLef t Arm [id number] 96 sanofi pasteur complet ed tuberculi n purified protein derivativ e 04/01/19 Given 0028C-[facility] [place] tuberculin skin test; purified protein derivative solution, intradermal 1 2018 DIEGO PALACIOS [id number] Sanofi Pasteur (PMC) complet ed tuberculi n skin test; purified protein derivativ e solution, intraderm al DoD influenza, injectable, quadrivalent- pf 2017 [id number] Seqirus complet ed influenza , injectabl e, quadrival ent-pf 08/30/18 Given 0028C-N [facility] [place] Influenza, injectable, quadrivalent, preservative free 0 2017 [id number] 150 Seqirus (SEQ) comple t ed Influenza , injectabl e, quadrival ent, preservat joselyn free DoD influenza, injectable, quadrivalent- pf 2016 UNK 150 Seqirus complet ed influenza , injectabl e, quadrival ent-pf 10/06/17 Given 0028C-[facility] [place] Influenza, injectable, quadrivalent, preservative free 0 2016 UNK 150 Seqirus (SEQ) comple t ed Influenza , injectabl e, quadrival ent, preservat joselyn free DoD hepatitis B vaccine, pediatric or pediatric/ado lescent dosage 0 2016 08 () Not Given hepatitis B vaccine, pediatric or pediatric /adolesce nt dosage DoD influenza, injectable, quadrivalent- pf 2015 UNK 150 Seqirus complet ed influenza , injectabl e, quadrival ent-pf 09/07/16 Given 0028C-[facility] [place] Influenza, injectable, quadrivalent, preservative free 0 2015 UNK 150 Seqirus (SEQ) comple t ed Influenza , injectabl e, quadrival ent, preservat joselyn free [facility] measles and rubella virus vaccine 0 2015 04 () Not Given measles and rubella virus vaccine DoD hepatitis A vaccine, adult dosage 0 2015 52 () Not Given hepatitis A vaccine, adult dosage DoD poliovirus vaccine, inactivated 2015 Vicenta Arm [id number] sanofi pasteur complet ed polioviru s vaccine, inactivat ed 12/21/15 Given 0028C-N [facility] hepatitis B adult vaccine 2015 zPeggy t Arm [id number] 43 GlaxoSmithKli ne complet ed hepatitis B adult vaccine 12/21/15 Given 0028C-N [facility] poliovirus vaccine, inactivated 1 2015 HEIKE WINKLER [id number] 10 Sanofi Pasteur ([facility]) complet ed polioviru s vaccine, inactivat ed DoD hepatitis B vaccine, adult dosage 1 2015 HEIKE WINKLER [id number] 43 [facility] hepatitis B vaccine, adult dosage DoD meningococcal A,C,Y,W-135 (MCV4P) 2015 [place] t Arm [id number] 114 sanofi pasteur complet ed meningoco ccal A,C,Y,W-1 35 (MCV4P) 11/17/15 Given 0028C-N [facility] adenovirus vaccine, live 2015 [id number] 143 Unknown complet ed adenoviru s vaccine, live 11/17/15 Given 0028C-[facility] tetanus, diphtheria, acellular pertu is 2015 Vicenta Arm [id number] 115 GlaxoSmithKli ne complet ed tetanus, diphtheri a, acellular pertussis 11/17/15 Given 0028C-N [facility] hepatitis B adult vaccine 2015 zPeggy t Arm [id number] 43 GlaxoSmithKli ne complet ed hepatitis B adult vaccine 11/17/15 Given 0028C-[facility] influenza virus vaccine, live 2015 [id number] DSI [employer] comple t ed influenza virus vaccine, live 11/17/15 Given 0028C-[facility] hepatitis B vaccine, adult dosage 1 2015 ZACHARY NICE I [id number] 43 [facility] complet ed hepatitis B vaccine, adult dosage DoD influenza virus vaccine, live, attenuated, for intranasal use 1 2015 MARGARITO TILLMAN [id number] Orphazyme[employer] Inc. (MED) complet ed influenza virus vaccine, live, attenuate d, for intranasa l use DoD meningococcal polysaccharid e (groups A, C, Y and W-135) diphtheria toxoid conjugate vaccine (MCV4P) 1 2015 ZACHARY NICE I [id number] 114 Sanofi Pasteur (PMC) complet ed meningoco ccal polysacch aride (groups A, C, Y and W-135) diphtheri a toxoid conjugate vaccine (MCV4P) DoD tetanus toxoid, reduced diphtheria toxoid, and acellular pertu is vaccine, adsorbed 1 2015 ZACHARY NICE I [id number] [facility] [employer] (SKB) complet ed tetanus toxoid, reduced diphtheri a toxoid, and acellular pertussis vaccine, adsorbed DoD Adenovirus, type 4 and type 7, live, oral 1 2015 ZACHARY NICE I [id number] 143 Other (OTH) complet ed Adenoviru s, type 4 and type 7, live, oral DoD Hep A, ped/adol, 3 dose 2007 Body, whole TRANSCR IBED 84 complet ed Hep A, ped/adol, 3 dose 08/06/08 Given 0028C-N [facility] influenza virus vaccine,split 2007 Body, whole TRANSCR IBED 15 complet ed influenza virus vaccine,s plit 08/06/08 Given 0028C-N [facility] influenza virus vaccine, split virus (incl. purified surface antigen)-reti red CODE 0 2007 15 Transcribed (TRS) complet ed influenza virus vaccine, split virus (incl. purified surface antigen)- retired CODE DoD hepatitis A vaccine, pediatric/ado lescent dosage, 3 dose schedule 2 2007 84 Transcribed (TRS) complet ed hepatitis A vaccine, pediatric /adolesce nt dosage, 3 dose schedule DoD Hep A, ped/adol, 2 dose 2001 Body, whole TRANSCR IBED 83 complet ed Hep A, ped/adol, 2 dose 06/10/02 Given 0028C-N [facility] [place] hepatitis A vaccine, pediatric/ado lescent dosage, 2 dose schedule 1 2001 83 Transcribed (TRS) complet ed hepatitis A vaccine, pediatric /adolesce nt dosage, 2 dose schedule DoD hepatitis B pediatric/ado lescent 1998 Body, whole TRANSCR IBED 08 complet ed hepatitis B pediatric /adolesce nt 12/16/98 Given 0028C-N [facility] hepatitis B vaccine, pediatric or pediatric/ado lescent dosage 3 1998 08 Transcribed (TRS) complet ed hepatitis B vaccine, pediatric or pediatric /adolesce nt dosage DoD hepatitis B pediatric/ado lescent 1997 Body, whole TRANSCR IBED 08 complet ed hepatitis B pediatric /adolesce nt 06/16/98 Given 0028C-N [facility] hepatitis B vaccine, pediatric or pediatric/ado lescent dosage 2 1997 08 Transcribed (TRS) complet ed hepatitis B vaccine, pediatric or pediatric /adolesce nt dosage DoD hepatitis B pediatric/ado lescent 1996 Body, whole TRANSCR IBED 08 complet ed hepatitis B pediatric /adolesce nt 05/26/97 Given 0028C-N [facility] hepatitis B vaccine, pediatric or pediatric/ado lescent dosage 1 1996 08 Transcribed (TRS) complet ed hepatitis B vaccine, pediatric or pediatric /adolesce nt dosage DoD tuberculin purified protein derivative 1996 Body, whole TRANSCR IBED 96 complet ed tuberculi n purified protein derivativ e 05/23/97 Given 0028C-N [facility] poliovirus vaccine, inactivated 1996 Body, whole TRANSCR IBED 10 complet ed polioviru s vaccine, inactivat ed 05/23/97 Given 0028C-N [facility] diphtheria/te tanus toxoids/pertu is 1996 Body, whole TRANSCR IBED 01 complet ed diphtheri a/tetanus toxoids/p ertussis 05/23/97 Given 0028C-N [facility] measles/mumps /rubella virus vaccine 1996 Body, whole TRANSCR IBED 03 complet ed measles/m umps/rube lla virus vaccine 05/23/97 Given 0028C-N [facility] diphtheria, tetanus toxoids and pertu is vaccine 5 1996 01 Transcribed (TRS) complet ed diphtheri a, tetanus toxoids and pertussis vaccine DoD measles, mumps and rubella virus vaccine 2 1996 03 Transcribed (TRS) complet ed measles, mumps and rubella virus vaccine DoD poliovirus vaccine, inactivated 4 1996 10 Transcribed (TRS) complet ed polioviru s vaccine, inactivat ed DoD tuberculin skin test; purified protein derivative solution, intradermal 0 1996 96 Transcribed (TRS) complet ed tuberculi n skin test; purified protein derivativ e solution, intraderm al DoD haemophilus b conjugate (PRP-T) vaccine 1995 Body, whole TRANSCR IBED 48 complet ed haemophil us b conjugate (PRP-T) vaccine 01/26/96 Given 0028C-N [facility] diphtheria/te tanus toxoids/pertu is 1995 Body, whole TRANSCR IBED 01 complet ed diphtheri a/tetanus toxoids/p ertussis 01/26/96 Given 0028C-N [facility] poliovirus vaccine, inactivated 1995 Body, whole TRANSCR IBED 10 complet ed polioviru s vaccine, inactivat ed 01/26/96 Given 0028C-[facility] diphtheria, tetanus toxoids and pertu is vaccine 4 1995 01 Transcribed (TRS) complet ed diphtheri a, tetanus toxoids and pertussis vaccine DoD poliovirus vaccine, inactivated 3 1995 10 Transcribed (TRS) complet ed polioviru s vaccine, inactivat ed DoD Haemophilus influenzae type b vaccine, PRP-T conjugate 3 1995 48 Transcribed (TRS) complet ed Haemophil us influenza e type b vaccine, PRP-T conjugate DoD haemophilus b conjugate (PRP-T) vaccine 1993 Body, whole TRANSCR IBED 48 complet ed haemophil us b conjugate (PRP-T) vaccine 01/19/94 Given 0028C-[facility] measles/mumps /rubella virus vaccine 1993 Body, whole TRANSCR IBED 03 complet ed measles/m umps/rube lla virus vaccine 01/19/94 Given 0028C-N [facility] diphtheria/te tanus toxoids/pertu is 1993 Body, whole TRANSCR IBED 01 complet ed diphtheri a/tetanus toxoids/p ertussis 01/19/94 Given 0028C-[facility] diphtheria, tetanus toxoids and pertu is vaccine 3 1993 01 Transcribed (TRS) complet ed diphtheri a, tetanus toxoids and pertussis vaccine DoD measles, mumps and rubella virus vaccine 1 1993 03 Transcribed (TRS) complet ed measles, mumps and rubella virus vaccine DoD Haemophilus influenzae type b vaccine, PRP-T conjugate 4 1993 48 Transcribed (TRS) complet ed Haemophil us influenza e type b vaccine, PRP-T conjugate DoD haemophilus b conjugate (PRP-T) vaccine 1992 Body, whole TRANSCR IBED 48 complet ed haemophil us b conjugate (PRP-T) vaccine 09/08/93 Given 0028C-N [facility] diphtheria/te tanus toxoids/pertu is 1992 Body, whole TRANSCR IBED 01 complet ed diphtheri a/tetanus toxoids/p ertussis 09/08/93 Given 0028C-N [facility] [place] poliovirus vaccine, inactivated 1992 Body, whole TRANSCR IBED 10 complet ed polioviru s vaccine, inactivat ed 09/08/93 Given 0028C-N [facility] diphtheria, tetanus toxoids and pertu is vaccine 2 1992 01 Transcribed (TRS) complet ed diphtheri a, tetanus toxoids and pertussis vaccine DoD poliovirus vaccine, inactivated 2 1992 10 Transcribed (TRS) complet ed polioviru s vaccine, inactivat ed DoD Haemophilus influenzae type b vaccine, PRP-T conjugate 2 1992 48 Transcribed (TRS) complet ed Haemophil us influenza e type b vaccine, PRP-T conjugate DoD poliovirus vaccine, inactivated 1991 Body, whole TRANSCR IBED 10 complet ed polioviru s vaccine, inactivat ed 92 Given 0028C-N [facility] diphtheria/te tanus toxoids/pertu is 1991 Body, whole TRANSCR IBED 01 complet ed diphtheri a/tetanus toxoids/p ertussis 92 Given 0028C-N [facility] [place] haemophilus b conjugate (PRP-T) vaccine 1991 Body, whole TRANSCR IBED 48 complet ed haemophil us b conjugate (PRP-T) vaccine 92 Given 0028C-N [facility] diphtheria, tetanus toxoids and pertu is vaccine 1 1991 01 Transcribed (TRS) complet ed diphtheri a, tetanus toxoids and pertussis vaccine DoD poliovirus vaccine, inactivated 1 1991 10 Transcribed (TRS) complet ed polioviru s vaccine, inactivat ed DoD Haemophilus influenzae type b vaccine, PRP-T conjugate 1 1991 48 Transcribed (TRS) complet ed Haemophil us influenza e type b vaccine, PRP-T conjugate DoD Results Combined list of recent chemistry, hematology and other laboratory results from [facility] of Defense and [facility], ranging from 15 months to all on record, depending upon the facility. Order Name Results Value Reference Range Date Interpretation Specimen Comments Source Molecular Infectiou s Disease SARS-CoV-2 PCR Not Detected 10 (08/26/20 9:10 AM) 08/26 N Interpretiv e Data: Identificat ion of SARS-CoV-2 is considered final. Negative/No t-detected results do not preclude SARS-CoV-2 infection and should not be used as the sole basis for treatment or other patient management decisions. Testing was performed using the [employer] PCR. This test has not been FDA cleared or approved; the test has been authorized by FDA under an EUA for use by authorized laboratorie s certified under CLIA/CLIP that meet the requirement s. [facility]28[facility] Molecular Infectiou s Disease Reason for Test? Screenin g (08/26/20 9:10 AM) 08/26 N [facility]28[facility] Molecular Infectiou s Disease Reason for Test? Diagnosi s (07/22/20 9:48 AM) 07/22 N [facility]28A[facility] Molecular Infectiou s Disease SARS-CoV-2 , ALONZO LC Not Detected 07/22 Result Comment: Testing was performed using the Aptima SARS-CoV-2 assay. This nucleic acid amplificati on test was developed and its performance characteris tics determined by [employer]. Nucleic acid amplificati on tests include PCR and TMA. This test has not been FDA cleared or approved. This test has been authorized by FDA under an Emergency Use Authorizati on (EUA). This test is only authorized for the duration of time the declaration that circumstanc es exist justifying the authorizati on of the emergency use of in vitro diagnostic tests for detection of SARS-CoV-2 virus and/or diagnosis of COVID-19 infection under section 564(b)(1) of the Act, 21 U.S.C. 360bbb-3(b) (1), unless the authorizati on is terminated or revoked sooner. When diagnostic testing is negative, the possibility of a false negative result should be considered in the context of a patient's recent exposures and the presence of clinical signs and symptoms consistent with COVID-19. An individual without symptoms of COVID-19 and who is not shedding SARS-CoV-2 virus would expect to have a negative (not detected) result in this assay. Performed At: 01 [facility] [address] [facility] [address] [place], [place] [id number] Dharmesh Frost MD Ph:[phone] [facility]28[facility] Infectu s Disease Strep A, Rapid Negative (07/22/20 9:11 AM) 07/22 N [facility]28[facility] SARS-CoV-2 , ALONZO LC SEE COMMENT 04/13 Result Comment: NOT DETECTED The laboratory is certified under the Clinical Laboratory Improvement Program (CLIP) and College of [employer] Pathologist s (CAP) as qualified to perform high complexity clinical laboratory testing. These results were generated using the [facility] 2018-Novel Coronavirus (2019-nCoV) Real-time RT-PCR Diagnostic Panel. This assay is intended for the in vitro qualitative detection of the SARS-CoV-2 (COVID-19) RNA in respiratory specimens from individuals meeting SARS-CoV-2 (COVID-19) clinical and/or epidemiolog ical criteria. Identificat ion of SARS-CoV-2 (COVID-19) is considered final. Negative results do not preclude SARS-CoV-2 (COVID-19) infection and should not be used as the sole basis for treatment or other patient management decisions. The CDC 2018-Novel Coronavirus (2018-nCoV) Real-time RT-PCR Diagnostic Panel is only for use under the Food and Drug Administrat ion s Emergency Use Authorizati on TESTING PERFORMED AT [facility] [address] and ALICJA KIM GATE [address], [facility] [address] [place] [address] [id number] [place] Infectiou s Disease Treponema pallidum Ab.EPI NON-REAC TIVE 02/13 Result Comment: INTERPRETAT ION(S): NON-REACTIV E: No laboratory evidence of syphilis infection. A negative result cannot exclude incubating or early primary syphilis. If recent exposure is suspected, submit another sample in 2 - 4 weeks to repeat testing. REACTIVE: Suggest infection with Treponema pallidum at some point in the past, but does not distinguish between treated and untreated infection. All REACTIVE results will automatical ly reflex to a supplementa l Syphilis assay in accordance to the Center for Disease Control and Prevention (CDC) diagnostic algorithm. Methodology : Electrochem iluminescen t immunoassay (ECLIA) Notifiable result/cond ition for Local/State Public Health (PH) department, notify your local [facility] immediately for proper notificatio n. Performed by: Epidemiolog y Laboratory Service [facility] [address] [place] [phone] [place] [address] [place] Infectiou s Disease Chlamydia Scrn Neg 1 (02/14/20 1:32 PM) 02/13 N Interpretiv e Data: The Aptima Combo 2 Assay is a target amplificati on nucleic acid probe test that utilizes target capture for the in vitro qualitative detection and differentia tion of ribosomal RNA (rRNA) from Chlamydia trachomatis (CT) and/or Neisseria gonorrhoeae (GC) in female cervical/va ginal swabs, male urethral swabs, and male urine specimens to aid in the diagnosis of chlamydial and/or gonococcal urogenital disease using the GiPStech System. Female urine has been validated by [facility]. A first catch urine specimen is acceptable, but may detect up to 10% fewer infections when compared with vaginal and endocervica l swab specimens. Performance characteris tics for female urine samples were determined by [facility]. The limit of detection for female urine samples is 1.25 IFU/mL for CT and 12.5 GC cells/mL for GC. A positive result indicates that DNA of Chlamydia trachomatis (CT) and/or Neisseria gonorrhoeae (GC) is present in the specimen tested and strongly supports a diagnosis of chlamydial/ gonorrheal infection. For those patients for whom a false positive result may have adverse psycho-soci al impact, the CDC recommends retesting IAW regulations /SOP. A negative result indicates that DNA for CT and/or GC was not detected in the specimen. A negative result does not exclude the possibility of infection. Improper specimen collection, concurrent antibiotic therapy, presence of inhibitors, or low number of organism in the specimen may cause false negative results. When clinical indications strongly suggest gonococcal or chlamydia infection, additional specimens should be collected for testing. A result of indetermina te indicates that a new specimen should be collected and submitted for further testing. The performance of the Aptima 2 Assay has not been evaluated in women and adolescents less than 14 years. The Aptima Combo 2 Assay is not intended for the evaluation of suspected sexual abuse or for other medico-lega l indications . The assay has not been evaluated with patients who are currently being treated with antimicrobi al agents active against CT or GC. In general, this assay should not be used to assess therapeutic success or failure since nucleic acids from these organisms may persist for 3 weeks or more following antimicrobi al therapy. Results should be interpreted in conjunction with other laboratory and clinical information . 0125[facility] Infectiou s Disease GC Scrn Neg 3 (02/14/20 1:32 PM) 02/13 N Interpretiv e Data: The Aptima Combo 2 Assay is a target amplificati on nucleic acid probe test that utilizes target capture for the in vitro qualitative detection and differentia tion of ribosomal RNA (rRNA) from Chlamydia trachomatis (CT) and/or Neisseria gonorrhoeae (GC) in female cervical/va ginal swabs, male urethral swabs, and male urine specimens to aid in the diagnosis of chlamydial and/or gonococcal urogenital disease using the GiPStech System. Female urine has been validated by [facility]. A first catch urine specimen is acceptable, but may detect up to 10% fewer infections when compared with vaginal and endocervica l swab specimens. Performance characteris tics for female urine samples were determined by [facility]. The limit of detection for female urine samples is 1.25 IFU/mL for CT and 12.5 GC cells/mL for GC. A positive result indicates that DNA of Chlamydia trachomatis (CT) and/or Neisseria gonorrhoeae (GC) is present in the specimen tested and strongly supports a diagnosis of chlamydial/ gonorrheal infection. For those patients for whom a false positive result may have adverse psycho-soci al impact, the CDC recommends retesting IAW regulations /SOP. A negative result indicates that DNA for CT and/or GC was not detected in the specimen. A negative result does not exclude the possibility of infection. Improper specimen collection, concurrent antibiotic therapy, presence of inhibitors, or low number of organism in the specimen may cause false negative results. When clinical indications strongly suggest gonococcal or chlamydia infection, additional specimens should be collected for testing. A result of indetermina te indicates that a new specimen should be collected and submitted for further testing. The performance of the Aptima 2 Assay has not been evaluated in women and adolescents less than 14 years. The Aptima Combo 2 Assay is not intended for the evaluation of suspected sexual abuse or for other medico-lega l indications . The assay has not been evaluated with patients who are currently being treated with antimicrobi al agents active against CT or GC. In general, this assay should not be used to assess therapeutic success or failure since nucleic acids from these organisms may persist for 3 weeks or more following antimicrobi al therapy. Results should be interpreted in conjunction with other laboratory and clinical information . 0125[facility] Chemistry TSH 1.217 uIU/mL 0.358 - 3.740 02/13 N [facility]28[facility] Chemistry T4 Free 0.93 ng/dL 0.76 - 1.46 02/13 N 0028[facility] Infectiou s Disease HIV-1/O/2. EPI NON-REAC TIVE 02/13 Result Comment: INTERPRETAT ION(S): This method is a screening procedure for the detection of HIV p24 Antigen and Antibodies to HIV-1, including Group O, and/or HIV-2. NON-REACTIV E: HIV-1 antigen and HIV-1 / HIV-2 antibodies were not detected. No laboratory evidence of HIV infection. A negative test results does not exclude the possibility of exposure to or infection with HIV. HIV antibodies and/or p24 antigen may be undetectabl e in some stages of the infection and in some clinical conditions. If acute HIV infection is suspected, consider submitting another specimen to a reference laboratory for HIV-1 RNA. SCREEN REACTIVE - CONFIRMATIO N TO FOLLOW: Possible presence of HIV-1 antibodies, HIV-2 antibodies and/or HIV-1 p24 antigen. Specimen will reflex to the confirmatio n testing that fulfills the Center for Disease Control and Prevention' s HIV diagnostic algorithm. Refer to [facility] Lab Guide for additional information : [email or web address] [email or web address].aspx Testing performed by [facility] shai baum. Performed by: Epidemiolog y Laboratory Service [facility]/Critical access hospital [address] [place] [address], [place] [address] [place] [address] Miscellan eous Sendouts Repository Sample.EPI RECEIVED 02/13 Result Comment: INTERPRETAT ION(S): Performed by: Epidemiolog y Laboratory Service [facility] 911 [facility] [address] [place] [phone] [place] [address] Toxicolog y Phosphatid ylethanol. LC 104 ng/mL 02/13 H Result Comment: Analyzed compound: PEth 16:0/18:1. 1-palmitoyl -2-oleoyl-s n-glycero-3 -phosphoeth anol. Analysis performed by Liquid Chromatogra phy with Tandem Mass Spectrometr y (LC/MS/MS). Detection limit: 20 ng/mL PEth levels in excess of 20 ng/mL are considered evidence of moderate to heavy ethanol consumption . However, the Center for Substance Abuse Treatment (CSAT) advises caution in interpretat ion and use of biomarkers alone to assess alcohol use. Results should be interpreted in the context of all available clinical and behavioral information . Reference: Substance Abuse and Mental Health Services Administrat ion (2012). The Role of Biomarkers in the Treatment of Alcohol Use Disorders , 2012 Revision. Advisory, Volume 11, Issue 2. This test was developed and its performance characteris tics determined by [facility]. It has not been cleared or approved by the Food and Drug Administrat ion. Performed At: 01 [employer] [address] [id number] [facility] Ph:[phone] [address] [place] [address] Chemistry Testostero ne Serum LC 552 ng/dL 02/13 Result Comment: Adult male reference interval is based on a population of healthy nonobese males (BMI <30) between 19 and 39 years old. sedrick Kc.al. JCEM 2017,102;11 61-1173. PMID: [id number]. [address] [place] [address] Chemistry Free Testostero ne Direct LC 10.9 pg/mL 02/13 Result Comment: Performed At: 01 [facility] [address] [facility] [address] [facility] [address] [place], [place] [id number] Dharmesh Frost MD Ph:[phone] Performed At: 02 [facility] [address] [place], [place] [id number] Genaro Grimaldo MD Ph:[phone] [address] [place] [address] Chemistry A/G Ratio 1 02/[address] [place] [address] Chemistry Albumin 4.5 g/dL 3.4 - 5.0 02/[address] [place] [address] Chemistry Alk Phos 73 U/L 30 - 120 02/[address] [place] [address] Chemistry ALT 33 U/L 12 - 78 02/[address] [place] [address] Chemistry AST 17 U/L 15 - 37 02/13 N Interpretiv e Data: PHLEBOTOMY SHOULD OCCUR PRIOR TO ADMINSTRATI ON OF SULFASALAZI NE TO PREVENT FALSELY DECREASED RESULTS. [address] [place] [address] Chemistry Bilirubin Direct 0.16 mg/dL 0.00 - 0.20 02/[address] [place] [address] Chemistry Bilirubin Total 0.6 mg/dL 0.2 - 1.0 02/[address] [place] [address] Chemistry Protein Total 7.9 g/dL 6.4 - 8.2 02/[address] [place] [address] Infectiou s Disease SARS-CoV-2 , ALONZO LC See comment 01/26 Result Comment: NOT DETECTED The laboratory is certified under the Clinical Laboratory Improvement Program (CLIP) and College of [employer]ef[employer] Pathologist s (CAP) as qualified to perform high complexity clinical laboratory testing. These results were generated using the [facility] 2018-Novel Coronavirus (2018-nCoV) Real-time RT-PCR Diagnostic Panel. This assay is intended for the in vitro qualitative detection of the SARS-CoV-2 (COVID-19) RNA in respiratory specimens from individuals meeting SARS-CoV-2 (COVID-19) clinical and/or epidemiolog ical criteria. Identificat ion of SARS-CoV-2 (COVID-19) is considered final. Negative results do not preclude SARS-CoV-2 (COVID-19) infection and should not be used as the sole basis for treatment or other patient management decisions. The [facility] 2018-Novel Coronavirus (2018-nCoV) Real-time RT-PCR Diagnostic Panel is only for use under the Food and Drug Administrat ion s Emergency Use Authorizati on TESTING PERFORMED AT [facility] HAFSA KIM and ALICJA KIM [facility], [id number] [place] [address] Vital Signs Combined list of inpatient and outpatient Vital Signs from Department of Defense and Veterans Affairs, ranging from 12 months to all on record, depending upon the facility. Vital Sign Value Date Comments Source Systolic Blood Pressure 102 mm[Hg] 07/13/20 20 21:16:[address] [place] [address] Diastolic Blood Pressure 67 mm[Hg] 020 21:16:[address] [place] [address] Mean Arterial Pressure, Calc 79 mm[Hg] 07/13/2020 21:16:[address] [place] [address] Peripheral Pulse Rate 73 bpm 07/13/2020 21:16:[address] [place] [address] Respiratory Rate 14 br/min 07/13/2020 21:16:[address] [place] [address] Temperature Oral 36.7 Rachelle 07/13/2020 21:16:[address] [place] [address] Blood Pressure Manual Automatic 07/13/2020 21:16:00 [facility] Temperature Oral 36.5 Rachelle 05/18/2020 22:07:00 0028[facility] [place] Temperature Oral 36.4 Rachelle 04/08/2020 21:32:00 0028A[facility] [place] Blood Pressure Manual Automatic 04/08/2020 21:32:00 0028[facility] [place] Temperature Oral 36.7 Rachelle 06/08/2020 21:51:00 0028[facility] [place] Blood Pressure Manual Automatic 06/08/2020 21:51:00 0028[facility] [place] Temperature Temporal Artery 36.1 Rachelle 08/27/2020 17:04:00 0028[facility] [place] Peripheral Pulse Rate 67 bpm 08/27/2020 17:04:00 0028[facility] [place] Respiratory Rate 14 br/min 08/27/2020 17:04:00 0028[facility] [place] Systolic Blood Pressure 127 mm[Hg] 08/27/20 20 17:04:00 0028[facility] [place] Diastolic Blood Pressure 72 mm[Hg] 020 17:04:00 0028[facility] [place] Mean Arterial Pressure, Calc 90 mm[Hg] 08/27/2020 17:04:00 0028[facility] [place] Cuff Size Medium 08/27/2020 17:04:00 0028[facility] [place] Blood Pressure Location Left arm 08/27/20 20 17:04:00 0028[facility] [place] Blood Pressure Method Automatic 08/27/2020 17:04:00 0028[facility] [place] Systolic Blood Pressure 112 mm[Hg] 07/22/20 20 15:33:00 0028[facility] [place] Diastolic Blood Pressure 75 mm[Hg] 020 15:33:00 0028[facility] [place] Mean Arterial Pressure, Calc 87 mm[Hg] 07/22/2020 15:33:00 0028[facility] [place] Peripheral Pulse Rate 73 bpm 07/22/2020 15:33:00 0028[facility] [place] Respiratory Rate 20 br/min 07/22/2020 15:33:00 0028[facility] [place] Temperature Oral 36.1 Rachelle 07/22/2020 15:33:00 0028[facility] [place] Blood Pressure Manual Automatic 07/22/2020 15:33:00 0028[facility] [place] Temperature Temporal Artery 36.1 Rachelle 08/27/2020 21:16:00 0028[facility] [place] Peripheral Pulse Rate 60 bpm 08/27/2020 21:16:00 0028[facility] [place] Respiratory Rate 16 br/min 08/27/2020 21:16:00 0028[facility] [place] Systolic Blood Pressure 113 mm[Hg] 08/27/20 21:16:00 0028[facility] [place] Diastolic Blood Pressure 78 mm[Hg] 21:16:00 0028[facility] [place] Cuff Size Medium 08/27/2020 21:16:00 0028[facility] [place] Blood Pressure Location Left arm 08/27/20 21:16:00 0028[facility] [place] Blood Pressure Method Automatic 08/27/2020 21:16:00 0028[facility] [place] Mean Arterial Pressure, Calc 90 mm[Hg] 08/27/2020 21:16:00 0028[facility] [place] Systolic Blood Pressure 109 mm[Hg] 09/24/20 17:16:00 0028C[facility] [place] Diastolic Blood Pressure 73 mm[Hg] 17:16:00 0028[facility] [place] Mean Arterial Pressure, Calc 85 mm[Hg] 09/24/2020 17:16:00 0028[facility] [place] Peripheral Pulse Rate 73 bpm 09/24/2020 17:16:00 0028[facility] [place] Respiratory Rate 16 br/min 09/24/2020 17:16:00 0028[facility] [place] Temperature Oral 36.4 Rachelle 09/24/2020 17:16:00 0028[facility] [place] Systolic Blood Pressure 116 mm[Hg] 08/31/20 20 18:24:00 0028[facility] [place] Diastolic Blood Pressure 72 mm[Hg] 18:24:00 0028[facility] [place] Mean Arterial Pressure, Calc 87 mm[Hg] 08/31/2020 18:24:00 0028[facility] [place] Peripheral Pulse Rate 58 bpm 08/31/2020 18:24:00 0028[facility] [place] Respiratory Rate 18 br/min 08/31/2020 18:24:00 0028[facility] [place] Temperature Oral 37 Rachelle 08/31/2020 18:24:00 0028[facility] [place] Temperature Tympanic 38.0 Rachelle 04/13/2020 23:40:00 0028[facility] [place] Systolic Blood Pressure 109 mm[Hg] 09/24/20 20 16:59:00 0028[facility] [place] Diastolic Blood Pressure 73 mm[Hg] 16:59:00 0028[facility] [place] Mean Arterial Pressure, Calc 85 mm[Hg] 09/24/2020 16:59:00 0028[facility] [place] Peripheral Pulse Rate 73 bpm 09/24/2020 16:59:00 0028[facility] [place] Respiratory Rate 16 br/min 09/24/2020 16:59:00 0028[facility] [place] Temperature Oral 36.2 Rachelle 09/24/2020 16:59:00 0028[facility] [place] Temperature Temporal 36.5 Rachelle 10/30/2019 03:27:00 0028[facility] [place] Blood Pressure Manual Automatic 10/30/2019 03:27:00 0028[facility] [place] Systolic Blood Pressure 112 mm[Hg] 09/03/20 20 18:18:00 0028[facility] [place] Diastolic Blood Pressure 75 mm[Hg] 020 18:18:00 0028[facility] [place] Mean Arterial Pressure, Calc 87 mm[Hg] 09/03/2020 18:18:00 0028[facility] [place] Peripheral Pulse Rate 70 bpm 09/03/2020 18:18:00 0028[facility] [place] Respiratory Rate 15 br/min 09/03/2020 18:18:00 0028[facility] [place] Temperature Oral 36.5 Rachelle 09/03/2020 18:18:00 0028[facility] [place] BP Site Left arm 09/03/2020 18:18:00 0028[facility] [place] Blood Pressure Manual Automatic 09/03/2020 18:18:00 0028[facility] [place] Systolic Blood Pressure 115 mm[Hg] 09/09/20 20 16:43:00 0028[facility] [place] Diastolic Blood Pressure 75 mm[Hg] 020 16:43:00 0028[facility] [place] Mean Arterial Pressure, Calc 88 mm[Hg] 09/09/2020 16:43:00 0028[facility] [place] Peripheral Pulse Rate 81 bpm 09/09/2020 16:43:00 0028[facility] [place] Respiratory Rate 16 br/min 09/09/2020 16:43:00 0028[facility] [place] Temperature Oral 36.2 Rachelle 09/09/2020 16:43:00 0028[facility] [place] BP Site Left arm 09/09/2020 16:43:00 0028[facility] [place] Blood Pressure Manual Automatic 09/09/2020 16:43:00 0028[facility] [place] Temperature Tympanic 36.6 Rachelle 07/04/2019 16:56:00 0028[facility] [place] Blood Pressure Manual Automatic 07/01/2020 21:32:00 0028[facility] [place] Temperature Temporal 36.5 Rachelle 10/12/2019 01:14:00 0028[facility] [place] Systolic Blood Pressure 119 mm[Hg] 07/29/20 20 20:20:00 0028[facility] [place] Diastolic Blood Pressure 75 mm[Hg] 20:20:00 0028[facility] [place] Mean Arterial Pressure, Calc 90 mm[Hg] 07/29/2020 20:20:00 0028[facility] [place] Peripheral Pulse Rate 86 bpm 07/29/2020 20:20:00 0028[facility] [place] Respiratory Rate 16 br/min 07/29/2020 20:20:00 0028[facility] Briseyda BP Site Left arm 07/29/2020 20:20:00 0028-[facility] [place] Blood Pressure Manual Automatic 07/29/2020 20:20:00 0028[facility] [place] Blood Pressure Manual Automatic 03/19/2020 17:38:00 0028[facility] [place] Encounters Combined list of: 1) Encounters from 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 Location Location Details Encounter Type Encounter Number Reason For Visit Attending Provider ADM Date DC Date Status Disposition Source [place] [place] OUTPATIENT [id number] Notes Entered by: MEGAN BATES 04 Jul 2014 1437 ------- ------- ------- ------- -- walk in AV[place] Shaikh 07/05 Released w/o Limitations [place] [place] OUTPATIENT [id number] knee NANNETTE FRIEDMAN 10/03 Released w/o Limitations [place]) [place] OUTPATIENT [id number] right knee pain JEANETTE CANDELARIA 02/20 Released w/o Limitations [place] [facility]) [place] OUT[place]IENT [id number] BRIELLE CUELLAR 02/26 Released w/o Limitations [place] TELE CONSULT [id number] Notes Entered by: CARMEN LLAMAS 26 Feb 2015 1729 ------- ------- ------- ------- -- GC probe follow up KHOA ALFARO 02/27 [facility]son [facility] TELE CONSULT [id number] Notes Entered by: Tahmina SKAGGS 26 Mar 2015 1017 ------- ------- ------- ------- -- Chlamyd MÓNICA Tong 03/26 [facility](Op tometry [facility] 1523) OUTPATIENT [id number] LUIZA HOLCOMB 11/16 Released w/o Limitations [facility]( Optomet ry [facility] 1523) [facility](Au diology [facility] 1523) OUTPATIENT [id number] RUSS MARTINEZ 11/16 Released w/o Limitations [facility]( Audiolo gy [facility] 1523) [facility] Male) OUTPATIENT [id number] HEIKE CHEN 11/18 Released w/o Limitations [facility]( [facility](Co urage (White) 6320) OUTPATIENT [id number] Notes Entered by: NEHA MENDEZ 26 Nov 2015 0931 ------- ------- ------- ------- -- BHAVIN Krause 11/26 Released w/o Limitations [facility]( Courage (White) 1007) [facility](Co urage (White) 1007) OUTPATIENT [id number] Notes Entered by: NEHA MENDEZ 08 Dec 2015 0936 ------- ------- ------- ------- -- ZEUS Oliveira 12/08 Released w/o Limitations [facility]( Cour[place] (White) 1007) [facility](Co urage (White) 1007) OUTPATIENT [id number] Notes Entered by: NEHA MENDEZ 15 Dec 201531 ------- ------- ------- ------- -- sorethr oat ZEUS LIU 12/15 Released w/o Limitations [facility]( Courage (White) 1007) [facility](Co urage (White) 1007) OUTPATIENT [id number] Notes Entered by: NEHA MENDEZ 18 Dec 2015 0726 ------- ------- ------- ------- -- sore throat LIU ZEUS Reid 12/18 Sick at Home/Quarter s [facility]( Cour[place] (White) 1007) [facility](Or dPeggy Assessmen t/1523) OUTPATIENT [id number] Notes Entered by: KRISTINE GAZRON 21 Dec 2015 0825 ------- ------- ------- ------- -- 5-2 day MORIS Roach Released w/o Limitations [facility]( Med. Assessm ent/152 3) [place]NAT[place] [facility]) OUTPATIENT [id number] PFB CRISSY SORIANO 01/13 Released with Work/Duty Limitations [place] OUT[place]IENT [id number] PFB INOCENCIO SMITH JR 02/01 Released with Work/D[place] Limitations [place] OUTPATIENT [id number] IRRITAT ED EYES BLANCA HOLLEY 02/08 Released w/o Limitations [place] Occup[facility] nal Health) OUTPATIENT [id number] N TESSA SARAH 02/15 Released w/o Limitations [place] Occup[place] [facility]) OUTPATIENT [id number] PFB CRISSY SORIANO 03/15 Released with Work/Duty Limitations [place] [facility]) [facility](NI Fam Med PCMH Tm 2) OUTPATIENT [id number] r/o sinus infecti on HOLLIE ESTRADA 05/03 Released w/o Limitations [facility](N I Fam Med PCMH Tm 2) [facility](NI Fam Med PCMH Tm 2) OUTPATIENT [id number] mary tatyana KARIME CHARLY Reid 05/19 Released w/o Limitations [facility](N I Fam Med PCMH Tm 2) [facility](NI Fam Med PCMH Tm 2) OUTPATIENT [id number] Notes Entered by: STEPHENIE GODFREY 30 May 2016 0904 ------- ------- ------- ------- -- NPV NVD TAMMY JENSEN 05/30 Sick at Home/Quarter s [facility](N I Fam Med PCMH Tm 2) [facility] [place] [id number] L ear pain/he adache x 3 days/FR C BRANDAN Carpenter 08/31 [facility] Limitations [facility] OUT[place]IENT [id number] possibl e sinus infecti on x 3 weeks/F NAZ ESPANA 09/20 [facility]itations [facility] OUT[facility]IENT [id number] f/u [facility] visit - genital dischar ge/[facility] NAZ Espana 10/11 [facility] Limitations [facility] OUTPATIENT [id number] Notes Entered by: MINAL QUINTANILLA 13 Oct 2016 1053 ------- ------- ------- ------- -- audio JORGE L QUINTANILLA 10/13 [place] w/o Limitations [place] [facility] [place] [facility] OUT[place]IENT [id number] still has dicharg e after treatme nt NAZ MARQUEZ 11/17 [place]ased w/o Limitations [place] [facility] [place] OUTPATIENT [id number] Margot castillo x1 wk DANIEL JAIN 12/08 Released w/o Limitations [place] [facility] OUTPATIENT [id number] Notes Entered by: MINAL QUINTANILLA 15 Mar 2017 1308 ------- ------- ------- ------- -- audio JORGE L QUINTANILLA 03/15 [place]ased [place]/o Limitations [place] [facility] OUTPATIENT [id number] Maritaz mora/ NICOLE GALLARDO 03/27 [place] Limitations [facility] TELE CONSULT [id number] Notes Entered by: CHRISTIANO HERNNÁDEZ 27 Mar 2017 1411 ------- ------- ------- ------- -- er follow up NICOLE HERNÁNDEZ 03/27 [place]ased [place]o Limitations [place] [facility] OUTPATIENT [id number] Notes Entered by: MINAL QUINTANILLA 30 Mar 2017 1046 ------- ------- ------- ------- -- audio-f u-bilat JORGE L QUINTANILLA B 03/30 [place]) [place] [id number] [facility] e Part-1 MONTELONGOJARED MartinezLOUISA Carias 04/17 [place] w/o Limitations [place] [id number] [phone] NAZ MARQUEZ 04/18 [place]/o Limitations [place] [id number] NO mary mora // NICOLE JERNIGAN 04/27 [place]ased [place]/o Limitations [place] TELE CONSULT [id number] Notes Entered by: ALONDRA ZHU 23 May 2017 0853 ------- ------- ------- ------- -- ER f/u NICOLE HERNÁNDEZ 05/23 [place] Limitations [place] [id number] f/u ER visit-n ot iris /[facility] DANIEL READ 05/24 [place] [id number] Headach es x 2 weeks KISHA KHAN S 07/06 [place]ased [place] Limitations [place] [id number] No NICOLE Monge 08/21 Released w/o Limitations [place] [id number] No shave chit//f rcw NICOLE HERNÁNDEZ S 10/10 [facility] Limitations [facility] TELE CONSULT [id number] Notes Entered by: JARED ROJAS 11 Oct 2017 1612 ------- ------- ------- ------- -- [facility] follow up NICOLE HERNÁNDEZ S 10/12 [place] OUT[place]IENT [id number] ER f/u - HEALTH SYSTEM // FRCW DANIEL JAIN 12/15 [place] Limitations [facility] OUTPATIENT [id number] R knee pain/FR C DANIEL READ 12/18 [place] [facility] OUT[place]IENT [id number] f/u L ankle pain/FR C DANIEL READ 01/02 [place] Limitations [facility] OUT[place] [id number] Pain in left ankle and joints of left foot TESSA RIBERA 01/11 [place] [facility] [place] [id number] FLU S/S CRISSY JAQUEZ 01/17 [place] [place] [facility] OUTPATIENT [id number] left ankle pain JOSE RAMON NOLASCO 01/24 [place]itations [facility] OUT[place] [id number] CORPORANAR UMANG HUNTER 01/30 [place] Limitations [facility] OUT[place]IENT [id number] CORPORANAR UMANG HUNTER 02/01 [facility] Limitations [facility] [place] [id number] ANDRE MARX 02/08 [place] Limitations [facility] OUT[place]IENT [id number] f/u MRI Results - L ankle and L knee/FR C DANIEL Read 02/13 [place] Limitations [facility] OUT[place]IENT [id number] [facility]/FR DANIEL DELEON 02/14 [place]itations [facility] OUTPATIENT [id number] Notes Entered by: MINAL QUINTANILLA 12 Apr 2018 0937 ------- ------- ------- ------- -- audio JORGE L QUINTANILLA 04/12 [place] Limitations [facility] OUT[place]IENT [id number] PHA/ FRKIP KLEIN 06/28 [place] [facility] OUT[place] [id number] Pain in left ankle and joints of left foot LIONEL LOCKETT 08/10 Released with [place]/D[place] Limitations [facility] [place] [id number] N/V/D 3 days AARON PERSON 08/14 [place] [place] [facility] [place] [id number] L Ankle pain BRETT LUIS 08/20 [place] Limitations [place] [id number] [facility]/30 [place] Limitations [place] [place] [id number] LESLIE GOODWIN 08/31 [place]ased [place]o Limitations [place] [id number] ANDRE MARX [facility] 09/04 Released w/o Limitations [place] [facility] [place] [id number] LESLIE GOODWIN 09/06 Released [place]/o Limitations [place] [place] [facility] [place] OUTPATIENT [id number] ANDRE MARX [facility] 09/10 Released [place]/o Limitations [place] TELE CONSULT [id number] Notes Entered by: LACY CORLEY RES 19 Sep 2018 0913 ------- ------- ------- ------- -- med refill YONG ALVARADO 09/19 [place] [facility] [place] OUTPATIENT [id number] F/U left ankle pain LIONEL LOCKETT 09/21 [place] Limitations [place] [place] [facility] [place] [id number] Med Refill/ [facility] VADIM BOYKIN 09/21 [place] Lim[place] [facility] [place] OUTPATIENT [id number] severe ear pain and sinus trouble s EBER VU 10/09 [place] Limitations [place] [facility] [place] [id number] Sinus 1 wk ODIN YARI VADIM 10/12 [place] OUTPATIENT [id number] REE/dif ficulty at night/m igraine s [facility] LIONEL BUENO 10/17 [place] Limitations [place] [facility] [place] [id number] L foot injury 4 days CRISSY JAQUEZ 11/06 Released with [place] Limitations [facility] TELE CONSULT [id number] Notes Entered by: JOLEEN BIRMINGHAM 09 Nov 2018 0814 ------- ------- ------- ------- -- Network Results VADIM CALLES 11/09 [facility] [place] [id number] Asthma Concern s X2days LINOAnnyYARI VADIM 11/29 [place]ased with [place] [facility] [place] [id number] Vomitin g today NICOLE HERNÁNDEZ S 12/14 [place] [facility] [place] [id number] NVD x 1 day/[facility] VADIM CALLES 12/14 [place] Limitations [facility] [place] [id number] Vomitin g/Diarr hea 24 hrs FLORIAN DALY 12/28 [place] Limitations [facility] OUT[place]IENT [id number] sore throat KIP MENDEZ R 03/06 [place] [facility] [id number] Notes Entered by: MINAL QUINTANILLA 27 Mar 2019 1203 ------- ------- ------- ------- -- audio JORGE L QUINTANILLA 03/27 Released w/o Limitations [place] [facility] [place] TELE CONSULT [id number] Notes Entered by: Eros STEVENSON 29 Mar 2019 1143 ------- ------- ------- ------- -- closed consult EBER VU 03/29 [place] [facility] [place] [facility] [place] [id number] Notes Entered by: KAYLAN PALACIOS 01 Apr 2019 1348 ------- ------- ------- ------- -- PPD DIEGO PALACIOS 04/01 Released w/o Limitations [facility] [place] [facility] [place] [id number] uncontr ollable bowel movemen ts KIP MENDEZ R 04/11 Released w/o Limitations [place] [facility] [facility] [id number] NEW PATIENT L ANKLE/L OWER BACK DUGLAS CORDERO S 04/17 [place] Limitations [facility] OUTPATIENT [id number] F/U LOWER BACK JAVEDNENITADUGLAS S 05/06 Released w/o Limitations [facility] [place] [facility] [facility] TELE CONSULT [id number] Notes Entered by: CHONG SHORE 09 May 2019 0946 ------- ------- ------- ------- -- NO DUGLAS Ramírez 05/09 [place] [facility] [id number] trouble sleepin KIP Navarrete 05/27 [place]ased [place] Limitations [place] [id number] NO MARY MORA/ LIONEL LAINEZ 05/29 [place]ased [place] Limitations [place] [id number] dizzy, light headed JONI AGUIRRE 06/07 [place]ased [place] Limitations [place] [id number] Notes Entered by: RONALDO GLASER 01 Jan 2020 1038 ------- ------- ------- ------- -- cold like CHINTAN Alcocer A 12/31 [place]ick [place]Qu[place] s [facility] [place] [id number] Notes Entered by: BEATRICE MOYER 07 Jan 2020 0829 ------- ------- ------- ------- -- POSSIBL E ALLERGI CHINTAN MARADIAGA A 01/06 [place] Procedures Combined list of: 1) Procedures from Department of Veterans Affairs facilities going back up to thelast 18 months, not all VA non-surgical procedures are included; 2) All procedures from the Department of Defense facilities. Procedure Procedure Type Code Date Perfomer Comments Sour e Patient education, not otherwise cla ified, non-physician provider, individual, per se ion 2017 JORGE L QUINTANILLA [facility] Threshold Audiogram (Pure Tone) Automated Threshold Audiogram (Pure Tone) Automated 0208T 2017 JORGE L QUINTANILLA [facility] Modalities Cryotherapy Cold Packs Modalities Cryotherapy Cold Packs [address] [facility] Physical Medicine - Group Physical Therapy Se ion Physical Medicine - Group Physical Therapy Session 24957 2017 [facility] Physical Therapy: ___ Se ion Segments, 15 Minutes Each Physical Therapy: ___ Session Segments, 15 Minutes Each 58415 2017 [facility] Modalities Cryotherapy Cold Packs Modalities Cryotherapy Cold Packs [address] [facility] Physical Medicine - Group Physical Therapy Se ion Physical Medicine - Group Physical Therapy Session [address] [facility] Physical Therapy: ___ Se ion Segments, 15 Minutes Each Physical Therapy: ___ Session Segments, 15 Minutes Each [address] [facility] Physical Therapy Mobilization Joint Physical Therapy Mobilization Joint [address] [facility] Physical Therapy: ___ Se ion Segments, 15 Minutes Each Physical Therapy: ___ Session Segments, 15 Minutes Each 92663 2017 JOSE RAMON NOLASCO [facility] Physical Therapy Service Evaluation Low Complexity Physical Therapy Service Evaluation Low Complexity 34317 2017 JOSE RAMON NOLASCO [facility] Patient education, not otherwise cla ified, non-physician provider, individual, per se ion 2016 JORGE L QUINTANILLA [facility] Threshold Audiogram (Pure Tone) Automated Threshold Audiogram (Pure Tone) Automated 0208T 2016 JORGE L QUINTANILLA [facility] Patient education, not otherwise cla ified, non-physician provider, individual, per se ion 2016 JORGE L QUINTANILLA [facility] Threshold Audiogram (Pure Tone) Automated Threshold Audiogram (Pure Tone) Automated 0208T 2016 JORGE L QUINTANILLA Ankle orthosis, ankle gauntlet or similar, with or without joints, prefabricated, [id number] 2016 DANIEL JAIN Threshold Audiogram (Pure Tone) Threshold Audiogram (Pure Tone) 32050 2015 JORGE L QUINTANILLA Patient education, not otherwise cla ified, non-physician provider, individual, per se ion 2015 TESSA SARAH Screening Test Of Visual Acuity, Quantitative, Bilateral Screening Test Of Visual Acuity, Quantitative, Bilateral 20316 2015 TESSA SARAH Patient education, not otherwise cla ified, non-physician provider, group, per se ion 2015 ZACHARY INCE I [facility] Vaccines Adenovirus Type 7 Live, For Oral Use Vaccines Adenovirus Type 7 Live, For Oral Use 25253 2015 ZACHARY NICE I [facility] Immunization Admin Intranasal / Oral Each Additional Vaccine Immunization Admin Intranasal / Oral Each Additional Vaccine 71790 2015 ZACHARY NICE I [facility] Vaccines Adenovirus Type 4 Live, For Oral Use Vaccines Adenovirus Type 4 Live, For Oral Use 28037 2015 ZACHARY NICE I [facility] Hepatitis B Vaccine (Active) Adult Dosage Hepatitis B Vaccine (Active) Adult Dosage 76430 2015 ZACHARY NICE I Hep B - Adult; Series #: 1; 1.0 mL; IM; Left Arm; Mfg: [employer]; Lot: [id number]; VIS given (Janeth: 11/24/11). [facility] Meningococcal (A, C, Y, W-135) Oligosacch Diphtheria Toxoid Conj Vacc 2015 ZACHARY NICE I Meningococcal MCV4P; Series #: 1; .5 mL; IM; Left Arm; Joppelg: [employer]; Lot: [id number]; VIS given (Janeth: 08/05/11). [facility] Tdap Vaccine Tdap Vaccine 07506 2015 ZACHARY NICE I Tdap; Series #: 1; .5 mL; IM; Right Arm; Mfg: [employer]; Lot: [id number]; VIS given (Janeth: 12/16/14). [facility] Immunization Administration By Injection, One Vaccine Immunization Administration By Injection, One Vaccine 12299 2015 ARLETZACHARY JACKSON Alan [facility] Immunization Administration By Injection, Each Additional Vaccine Immunization Administration By Injection, Each Additional Vaccine 94616 2015 ZACHARY NICE I [facility] Audiometry Group Testing Audiometry Group Testing 03285 2015 SPENSER RUSS [facility] Threshold Audiogram (Pure Tone) Threshold Audiogram (Pure Tone) 92972 2015 MUUSRUSS [facility] Visual Function Screening Visual Function Screening 55426 2015 LUIZA HOLCOMB [facility] Skin Test Anergy Tuberculin Intradermal Skin Test Anergy Tuberculin Intradermal 27910 2013 AVIS ARREDONDO Verified patient with two patient identifiers: Full Name and . Consent form completed, reviewed and allergies verified. Patient provided with TB information sheet, teaching and instructions to return to clinic within 48 to 72 hours for reading. Patient verbalized understanding and agreed with plan of care. Administered PPD 0.1ml ID, Site: right forearm, wheal noted. Patient tolerated procedure well and was advised to remain in clinic for 15 minutes to monitor for any adverse reactions. Smiley Ocampo LPN [facility] Preventive Medicine Administration Of Health Risk Questionnaire Patient-Focused Preventive Medicine Administration Of Health Risk Questionnaire Patient-Focused 49502 KIP MENDEZ [facility] Corticosteroids Injection Intraarticular Left Ankle Corticosteroids Injection Intraarticular Left Ankle AYLA LOCKETT The L Ankle was injected with 4 ml of 1% Lidocaine, 4 ml of 0.5% Marcaine, and 2 ml of Kenalog-40 with sterile technique using a 25G, 1.5 inch needle. Patient tolerated well. No adverse reactions to this or previous corticosteroid injections were noted. Prior to injection, informed written consent was obtained. The risks and benefits were explained. Risks are not limited to bleeding, infection, pain, local swelling, effusion, or allergic response. Verbal timeout was performed. The injection site was dressed with a Band-Aid. EBL 0cc. Pre-injection pain 5/10, post-injection pain 5/10. [facility] Physical Therapy Service Evaluation Moderate Complexity Physical Therapy Service Evaluation Moderate Complexity 81159 BRETT LUIS [facility] Physical Therapy: ___ Se ion Segments, 15 Minutes Each Physical Therapy: ___ Session Segments, 15 Minutes Each 56340 CHRISTA, LESLIE ANGIE [facility] Physical Therapy Mobilization Joint Physical Therapy Mobilization Joint 60688 CHRISTALESLIE Cooney [facility] Modalities Cryotherapy Cold Packs Modalities Cryotherapy Cold Packs 66406 LESLIE GOODWIN [facility] Physical Medicine - Group Physical Therapy Se ion Physical Medicine - Group Physical Therapy Session 74734 ANDRE [facility]X [facility] Modalities Heat Hot Packs Modalities Heat Hot Packs [id number] LESLIE GOODWIN [facility] Ophthalmological New Patient Start Comprehensive Care Ophthalmological New Patient Start Comprehensive Care [id number] AYLA BUENO [facility] Determination Of Refractive State Determination Of Refractive State 13873 AYLA BUENO [facility] Threshold Audiogram (Pure Tone) Automated Threshold Audiogram (Pure Tone) Automated 0208T JORGE L QUINTANILLA [facility] Patient education, not otherwise cla ified, non-physician provider, individual, per se ion JORGE L QUINTANILLA Skin Test Anergy Tuberculin Intradermal Skin Test Anergy Tuberculin Intradermal 83859 DIEGO PALACIOS IPPD; Series #: 1; 0.1 mL; ID; Left Arm; Mfg: [employer]; Lot: [id number]. [facility] Chiropractic Manip Treatmt (CMT) Spinal One To Two Regions Chiropractic Manip Treatmt (CMT) Spinal One To Two Regions [address] [facility] A isted Exercises For ROM Assisted [place]ercises [place] ROM [address] [facility] Chiropractic Manip Treatmt (CMT) Extraspinal One Or More Reg Chiropractic Manip Treatmt (CMT) Extraspinal One Or More Reg [id number] [facility] [facility] Psychotherapy For Crisis Intervention First 60 Minutes Psychotherapy For Crisis Intervention First 60 Minutes [id number] JEREMI TURNER [facility] Psychiatric Diagnostic Evaluation With Medical Evaluation And Management Psychiatric Diagnostic Evaluation With Medical Evaluation And Management [id number] CHARLY BALES [facility] PSYCHIATRIC DIAGNOSTIC EVALUATION 2018 [facility] CHIROPRACTIC MANIPULATIVE TREATMENT (CMT); EXTRASPINAL, 1 OR MORE REGIONS 2018 [facility] APPLICATION OF A MODALITY TO 1 OR MORE AREAS; HOT OR COLD PACKS 2018 [facility] SKIN TEST; TUBERCULOSIS, INTRADERMAL 2018 [facility] PURE TONE AUDIOMETRY (THRESHOLD), AUTOMATED; AIR ONLY 2018 [facility] INFECTIOUS AGENT ANTIGEN DETECTION BY IMMUNOASSAY WITH DIRECT OPTICAL (IE, VISUAL) OBSERVATION; STREPTOCOCCUS, GROUP A 2018 [facility] DETERMINATION OF REFRACTIVE STATE 2017 DoD THERAPEUTIC PROCEDURE, 1 OR MORE AREAS, EACH 15 MINUTES; THERAPEUTIC EXERCISES TO DEVELOP STRENGTH AND ENDURANCE, RANGE OF MOTION AND FLEXIBILITY 2017 DoD APPLICATION OF A MODALITY TO 1 OR MORE AREAS; HOT OR COLD PACKS 2017 DoD APPLICATION OF A MODALITY TO 1 OR MORE AREAS; HOT OR COLD PACKS 2017 DoD APPLICATION OF A MODALITY TO 1 OR MORE AREAS; HOT OR COLD PACKS 2017 DoD PHYSICAL THERAPY EVALUATION:MODERAT E COMPLEXITY,REQ:HIS T PRES PROB,1-2 PERS FACT &/COMORB,IMPACT PLAN OF CARE;CLIN DECIS MAKING OF MOD COMPLEX,TYP,30 MIN ARE SPENT [id number] W THE PATIENT &/FAMILY 2017 DoD ARTHROCENTESIS, ASPIRATION AND/OR INJECTION, INTERMEDIATE JOINT OR BURSA (EG, TEMPOROMANDIBULAR, ACROMIOCLAVICULAR, WRIST, ELBOW OR ANKLE, OLECRANON BURSA); WITHOUT ULTRASOUND GUIDANCE 2017 DoD ADMINISTRATION OF PATIENT-FOCUSED HEALTH RISK ASSESSMENT INSTRUMENT (EG, HEALTH HAZARD APPRAISAL) WITH SCORING AND DOCUMENTATION, PER STANDARDIZED INSTRUMENT 2017 DoD PATIENT EDUCATION, NOT OTHERWISE CLASSIFIED, NON-PHYSICIAN PROVIDER, INDIVIDUAL, PER SESSION 2017 DoD APPLICATION OF A MODALITY TO 1 OR MORE AREAS; HOT OR COLD PACKS 2017 DoD APPLICATION OF A MODALITY TO 1 OR MORE AREAS; HOT OR COLD PACKS 2017 DoD APPLICATION OF A MODALITY TO 1 OR MORE AREAS; HOT OR COLD PACKS 2017 DoD PHYSICAL THERAPY EVALUATION:LOW COMPLEXITY,REQ:HIS T W NO PERS FACT &/COMORB THAT IMPACT PLAN OF CARE;CLIN DECIS MAKING OF LOW COMPLEXITY,TYPICAL LY,20 MIN ARE SPENT [id number] W THE PATIENT &/FAMILY 2017 DoD PATIENT EDUCATION, NOT OTHERWISE CLASSIFIED, NON-PHYSICIAN PROVIDER, INDIVIDUAL, PER SESSION 2016 DoD PATIENT EDUCATION, NOT OTHERWISE CLASSIFIED, NON-PHYSICIAN PROVIDER, INDIVIDUAL, PER SESSION 2016 DoD ANKLE ORTHOSIS, ANKLE GAUNTLET OR SIMILAR, WITH OR WITHOUT JOINTS, PREFABRICATED, [id number] 2016 [facility] PURE TONE AUDIOMETRY (THRESHOLD); AIR ONLY 2015 [facility] POLIOVIRUS VACCINE, INACTIVATED (IPV), FOR SUBCUTANEOUS OR INTRAMUSCULAR USE 2015 [facility] PATIENT EDUCATION, NOT OTHERWISE CLASSIFIED, NON-PHYSICIAN PROVIDER, GROUP, PER SESSION 2015 [facility] VIS FUNCT SCREEN,AUTOMAT/EDILBERTO I-AUTOMAT BILAT QUANT DETERM VISUAL ACUITY,OCULAR ALIGN,COLOR VISION,PSEUDOISOCH ROMAT PLATES,& FIELD VIS (MAY INC ALL/SOME SCRN DETERM FOR CONTRAST SENSITIV,VIS UND GLARE) 2015 [facility] PURE TONE AUDIOMETRY (THRESHOLD); AIR ONLY 2015 [facility] PATIENT EDUCATION, NOT OTHERWISE CLASSIFIED, NON-PHYSICIAN PROVIDER, INDIVIDUAL, PER SESSION 2015 [facility] INJECTION, CEFTRIAXONE SODIUM, PER 250 MG 2014 [facility] SKIN TEST; TUBERCULOSIS, INTRADERMAL 2013 [facility] PSYCHIATRIC DIAGNOSTIC EVALUATION WITH MEDICAL SERVICES 2019 [facility] Repair Hallux Rigidus (Left, Foot) 2019 auto-populated from documented surgical case 0028A-[facility] Social History Combined list of available smoking, tobacco, and other social history from [facility] and [facility] facilities. Social History Type Response Date Comment Sourc e Smoking Status Former smoker, quit more than 30 days ago 09/24/2020 0028-[facility] Male 05/23/2019 0028-[facility] This section is an empty social history section. [facility] Smoking Status Smokeless tobacco us er within last 30 days 0028C-[facility] Sexual Orientation 0028- [facility] Gender identity 0028-[facility] Assessment and Plan Combined list of future care activities from Department of Defense and Veterans Affairs facilities (e.g., assessment and plan notes, appointments, orders, and referrals). Additional future care activities may be listed in the Plan of Care section. Result Assessment and Plan Date Source Assessment and Plan Extracted from:Title : Office Clinic Note Author: CARLA MEEK Date: 09/24/20 1. A cquired hallux limitus of left great toe t reatment today consisted of explanation of manipulation of the scar as well as range of motion activities to help restore the normal dorsiflexion at the first MP joint to allow for proper ambulation. patient is leaving the and is now scheduled for any follow-up care Ordered: [place] [address] 2. T oe joint painful on movement Ordered: Post[place] [address] Extracted from:Title: Office Clinic Note Author: CARLA MEEK Date: 09/09/20 1. A cquired hallux limitus of left great toe t reatment today consisted of suture removal and application of a sterile dressing. Patient was instructed in postop care. Patient was instructed to keep his foot dry for 48 hours and then may resume all activities to his tolerance. Patient was given a light duty C HIT for 14 days. patient is to return to clinic in 2 weeks for evaluation of his progress and anticipated full return to duty at that time. Ordered: Post[place] [address] 2. E xostosis of left foot Ordered: Post[place] [address] 3. T oe joint painful on movement Ordered: Post[place] [address] Extracted from:Title: Office Clinic Note Author: CARLA MEEK Date: 09/03/20 1. A cquired hallux limitus of left great toe Ordered: Postop [place] [address] 2. T oe joint painful on movement t reatment today consisted of dressing change. Reviewed the postop instructions with the patient with emphasis on keeping a dry. May bathe with a shower bag. Patient may resume activities to tolerance with his short leg walking cast boot. Patient is to return to clinic in 1 week for suture removal. Again emphasized the importance of not changing the dressing. p atient may need to have his convalescent extended for a n extra w [place] to 10 days. Ordered: Postop [place] [address] Extracted from:Title: Sep Phys/PHA Author: JP MONTELONGO Date: 08/31/20 1. E XAM, OCCUPATIONAL, USP OR SEPARATION FROM UNIFORMED SERVICE, LONG F it for separation. F/u PRN - Pt advised on how to inquire about missing network pulmonology and sleep study results Ordered: Administration,Pt-[facility] [address] Periodic Comp Preventive Med 18 to 39 years Est 96008 Pure Tone Audiometry Air Only 37003 Screening Test Visual Acuity Quantitative Bilat 39946 2. 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 N o acute or chronic medical complaints or conditions identified. M alexus instructed to RTC in 1 year for annual PHA. Ordered: Administration,Pt-[facility] 68034 Periodic Comp Preventive Med 18 to 39 years Est 84716 Pure Tone Audiometry Air Only 52569 Screening Test Visual Acuity Quantitative Bilat 80330 Extracted from:Title: Office Clinic Note Author: CARLA MEEK Date: 07/29/20 1. A cquired hallux limitus of left great toe treatment today consisted of lower extremity history and physical. Discussed the surgical procedure, the postoperative course, the long-term prognosis, and potential complications. Patient understands that depending on the condition of the joint that he may need further surgical intervention consisting of a joint revision with implant versus possibility of fusion. All questions were answered for the patient. Consent was obtained for the planned procedure Ordered: Office Visit Level 4 Est 40289 2. E xostosis of left foot Ordered: Office Visit Level 4 Est 05805 3. T oe joint painful on movement Ordered: Office Visit Level 4 Est 62490 Extracted from:Title: URI - PUI post nasal drip Author: CARLOS CASAS Date: 07/22/20 Sore throat R apid strep negative today. Suspected coronavirus infection Has meds with refills on hand, PUI status [id number] or as otherwise directed. Covid-19 results pending. Extracted from:Title: Snoring Author: JP MONTELOGNO Date: 07/13/20 1. O SA - Obstructive sleep apnea S TOP BANG score of 3 + Male placing at high risk for ROSALIND. Pt snores, fatigued during the day, with observed apneic episodes from the . Advised to continue allergy meds as Rx'd, given instructions on referral process, will place referral for sleep study and treat as needed. F/u PRN Ordered: Office Visit Level 3 Est 11242 Extracted from:Title: Office Clinic Note Author: HEIKE ERICKSON Date: 07/02/20 Positive STS Member showed a positive STS in right ear after initial annual audiogram. Member was instructed to follow up as soon as possible 14hrs noise free, but no longer than 30 days to be retested. Extracted from:Title: Office Clinic Note Author: CARLA MEEK MD Date: 07/01/20 1. A cquired hallux limitus of left great toe t reatment today consisted of clinical evaluation. X-rays were reviewed which appear to substantiate a small bony defect from the first metatarsal head probably associated with his injury. Possibility of the bone chip being in the joint and acting as an irritant. Discussed options and the prognosis for correction of this pathology with the patient. Patient elected for surgery on August 27 consisting of a cheilectomy. Patient understands that he may need further surgical intervention if the joint is disease and continues to cause pain with range of motion activities. Ordered: Procedure Not Found 2. T oe joint painful on movement Ordered: Procedure Not Found 3. E xostosis of left foot Extracted from:Title: [facility] - Pain in left foot Author: NOEL ANDERSON Date: 06/08/20 1. P ain in left foot Pt 30 yo m AD USN w/ 1 yr hx of left foot pain consistent to 1st MTM joint after reported for dropping a heaving object on the left foot now w/ persistent pain not improved w/ inserts and making it difficult at an AO for prolong standing. X-ray indicated marginal osteophyte w/ asymmetric joint space narrowing at MTM but no fx or dislocation. 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 Plan to refer to Podiatry for Orthotic assistance. ? Ordered: Medical Referral Request, = 06/15/2020, Routine, Podiatry, Pt 30 yo m AD USN w/ 1 yr hx of left foot pain consistent to 1st MTM joint after reported for dropping a heaving object on the left foot now w/ persistent pain not improved w/ inserts and making it difficult at an AO for... Office Visit Level 4 Est 33977 Noel Anderson MD, MPH Extracted from:Title: [facility] - Snoring +AR+ETD Author: NOEL ANDERSON Date: 05/18/20 1. S noring Pt 30 yo m AD USN 28 BMI w/ MPS I w/ ongoing snoring but PE is more consistent w/ AR+ETD.? His labs WNL for no thyroid pathology. Pt who stopped his Claritin and Flonase advised to continue taking his mediation daily. Pt was not advised to use his girlfriends CPAP. I believe his concern stems from sinus related at this time. Pt needs to maximize his treatment and improve his upper airway and reassess his concern. Pt is ready to separate and understand his time concern. Ordered: Office Visit Level 4 Est 71434 2. A llergic rhinitis Ordered: Office Visit Level 4 Est 22143 3. E ustachian tube dysfunction Ordered: Office Visit Level 4 Est 14885 Noel Anderson MD, MPH Extracted from:Title: Office Clinic Note- covid test Author: NATHALY FORREST Date: 04/13/20 1. E xposure to coronavirus infection, S uspected coronavirus infection Suspect that the first c ovid test was too early. B ased on the c onstellation of symptoms pt tested. Pt instructed on isolation at home for 14 days, and following up with PCM for RTW paper work. Results in 3-4 days. Ordered: ondansetron, 1 tab(s), Oral, every 8 hr, PRN Nausea or Vomiting, # 10 tab(s), 0 total refill(s), Maintenance, [facility] [Not filled] Headache P t instructed to take tylenol for fever Ordered: acetaminophen, 2 tab(s), Oral, every 4 hr, PRN pain or fever, # 30 tab(s), 0 total refill(s), Acute, 04/21/2020, Route to [facility] [No refills remaining] Extracted from:Title: Ambulatory Patient Education Author: NATHALY FORREST Date: 04/13/20 Patient Education Materials Follows:Medicine Contact Precautions Contact precautions are a way to protect everyone from the spread of certain germs. If you are on contact precautions, you have or may have germs that can be spread by: [id number] (direct) contact. Touching items around you that have the germs. RULES FOR PATIENTS Wash your hands often. Limit your time out of your room. Only leave to take tests in other areas of the hospital. Check with your nurse before leaving your room. Wear a gown and a bandage (dressing) over the infected area before leaving your room. RULES FOR VISITORS If there is a Contact Precautions sign on the door: You must check with the nurse before going into the room. You should check with the nurse if you plan to eat or drink in the room. You should ask the nurse about using or touching any items in the room. If allowed into the patient room: Wash your hands with soap and water or use hand security intern before entering the room. Put on a gown and gloves before entering the room. As you leave the room: Take off your gown and then your gloves. Leave them in the room as told. Wash your hands with soap and water or use hand security intern. Document Released: 11/11/2011 Document Revised: 02/03/2014 Document Reviewed: 11/11/2011 [facility] Patient Information 2 015 [facility]. This information is not intended to replace advice given to you by your health care provider. Make sure you discuss any questions you have with your health care provider. Extracted from:Title: Office Clinic Note Author: JP MONTELONGO Date: 04/13/20 1. I nfluenza-like illness P er HPI, persistent Sx concerning for possible COVID-19. Advised to return to main side URI tend for PE and testing. Pt VUAB. Ordered: Administration,Pt-Foc [facility] 96332 Brief Comm Tech-Based Svc, Virt, Phys, Est Pt; 5-10 Min Med Dis G2012 Unlisted Evaluation and Management Service 86295 Extracted from:Title: Office Clinic Note-pharyngitis Author: NATHALY FORREST Date: 04/08/20 1. P haryngitis S ore throat x 3 hours. Pt has not been identified as a close contact. Pt instructed to ROM for 48 if he develops any symptoms then he is to RTC for retesting. Pt is to follow up as needed. Ordered: Office Visit Level 3 Est 93899 Extracted from:Title: Ambulatory Patient Education Author: NATHALY FORREST Date: 04/08/20 Patient Education Materials Follows:Medicine Pharyngitis Pharyngitis is a sore throat (pharynx). There is redness, pain, and swelling of your throat. HOME CARE Drink enough fluids to keep your pee (urine) clear or pale yellow. Only take medicine as told by your doctor. You may get sick again if you do not take medicine as told. Finish your medicines, even if you start to feel better. Do not take aspirin. Rest. Rinse your mouth (gargle) with salt water ( tsp of salt per 1 qt of water) every 1?2 hours. This will help the pain. If you are not at risk for choking, you can suck on hard candy or sore throat lozenges. GET HELP IF: You have large, tender lumps on your neck. You have a rash. You cough up green, yellow-brown, or bloody spit. GET HELP RIGHT AWAY IF: You have a stiff neck. You drool or cannot swallow liquids. You throw up (vomit) or are not able to keep medicine or liquids down. You have very bad pain that does not go away with medicine. You have problems breathing (not from a stuffy nose). MAKE SURE YOU: Understand these instructions. Will watch your condition. Will get help right away if you are not doing well or get worse. Document Released: 03/27/2009 Document Revised: 07/30/2014 Document Reviewed: 06/16/2014 [facility] Patient Information 2 015 [facility]. This information is not intended to replace advice given to you by your health care provider. Make sure you discuss any questions you have with your health care provider. Extracted from:Title: Ambulatory Patient Education Author: YARI NEWBY Date: 03/19/20 Patient Education Materials Follows:Medicine Food Choices to Help Relieve Diarrhea When you have diarrhea, the foods you eat and your eating habits are very important. Choosing the right foods and drinks can help relieve diarrhea. Also, because diarrhea can last up to 7 days, you need to replace lost fluids and electrolytes (such as sodium, potassium, and chloride) in order to help prevent dehydration. WHAT GENERAL GUIDELINES DO I NEED TO FOLLOW? Slowly drink 1 cup (8 oz) of fluid for each episode of diarrhea. If you are getting enough fluid, your urine will be clear or pale yellow. Eat starchy foods. Some good choices include white rice, white toast, pasta, low-fiber cereal, baked potatoes (without the skin), saltine crackers, and bagels. Avoid large servings of any cooked vegetables. Limit fruit to two servings per day. A serving is cup or 1 small piece. Choose foods with less than 2 g of fiber per serving. Limit fats to less than 8 tsp (38 g) per day. Avoid fried foods. Eat foods that have probiotics in them. Probiotics can be found in certain dairy products. Avoid foods and beverages that may increase the speed at which food moves through the stomach and intestines (gastrointestinal tract). Things to avoid include: High-fiber foods, such as dried fruit, raw fruits and vegetables, nuts, seeds, and whole grain foods. Spicy foods and high-fat foods. Foods and beverages sweetened with high-fructose corn syrup, honey, or sugar alcohols such as xylitol, sorbitol, and mannitol. WHAT FOODS ARE RECOMMENDED? Grains White rice. White, Bengali, or jane breads (fresh or toasted), including plain rolls, buns, or bagels. White pasta. Saltine, soda, or fidencio crackers. Pretzels. Low-fiber cereal. Cooked cereals made with water (such as cornmeal, farina, or cream cereals). Plain muffins. Matzo. Rebeca toast. Zwieback. Vegetables Potatoes (without the skin). Strained tomato and vegetable juices. Most well-cooked and canned vegetables without seeds. Tender lettuce. Fruits Cooked or canned applesauce, apricots, cherries, fruit cocktail, grapefruit, peaches, pears, or plums. Fresh bananas, apples without skin, cherries, grapes, cantaloupe, grapefruit, peaches, oranges, or plums. Meat and Other Protein Products Baked or boiled chicken. Eggs. Tofu. Fish. Seafood. Smooth peanut butter. Ground or well-cooked tender beef, ham, veal, jacobs, pork, or poultry. Dairy Plain yogurt, kefir, and unsweetened liquid yogurt. Lactose-free milk, buttermilk, or soy milk. Plain hard cheese. Beverages Sport drinks. Clear broths. Diluted fruit juices (except prune). Regular, caffeine-free sodas such as jacinda bailee. Water. Decaffeinated teas. Oral rehydration solutions. Sugar-free beverages not sweetened with sugar alcohols. Other Bouillon, broth, or soups made from recommended foods. The items listed above may not be a complete list of recommended foods or beverages. Contact your dietitian for more options. WHAT FOODS ARE NOT RECOMMENDED? Grains Whole grain, whole wheat, bran, or rye breads, rolls, pastas, crackers, and cereals. Wild or brown rice. Cereals that contain more than 2 g of fiber per serving. [place] tortillas or taco shells. Cooked or dry oatmeal. Granola. Popcorn. Vegetables Raw vegetables. Cabbage, broccoli, [place] sprouts, artichokes, baked beans, beet greens, corn, kale, legumes, peas, sweet potatoes, and yams. Potato skins. Cooked spinach and cabbage. Fruits Dried fruit, including raisins and dates. Raw fruits. Stewed or dried prunes. Fresh apples with skin, apricots, mangoes, pears, raspberries, and strawberries. Meat and Other Protein Products [place] peanut butter. Nuts and seeds. Beans and lentils. Aburto. Dairy High-fat cheeses. Milk, chocolate milk, and beverages made with milk, such as milk shakes. Cream. Ice cream. Sweets and Desserts Sweet rolls, doughnuts, and sweet breads. Pancakes and waffles. Fats and Oils Butter. Cream sauces. Margarine. Salad oils. Plain salad dressings. Olives. Avocados. Beverages Caffeinated beverages (such as coffee, tea, soda, or energy drinks). Alcoholic beverages. Fruit juices with pulp. Prune juice. Soft drinks sweetened with high-fructose corn syrup or sugar alcohols. Other Coconut. Hot sauce. Maricao powder. Mayonnaise. Gravy. Cream-based or milk-based soups. The items listed above may not be a complete list of foods and beverages to avoid. Contact your dietitian for more information. WHAT SHOULD I DO IF I BECOME DEHYDRATED? Diarrhea can sometimes lead to dehydration. Signs of dehydration include dark urine and dry mouth and skin. If you think you are dehydrated, you should rehydrate with an oral rehydration solution. These solutions can be purchased at pharmacies, retail stores, or online. Drink 1 cup (120 2 40 mL) of oral rehydration solution each time you have an episode of diarrhea. If drinking this amount makes your diarrhea worse, try drinking smaller amounts more often. For example, drink 1 3 tsp (5-15 mL) every 5 1 0 minutes. A general rule for staying hydrated is to drink 1 2 L of fluid per day. Talk to your health care provider about the specific amount you should be drinking each day. Drink enough fluids to keep your urine clear or pale yellow. Document Released: 12/29/2004 Document Revised: 10/14/2014 Document Reviewed: 09/01/2014 [facility] Patient Information 2 015 [facility]. This information is not intended to replace advice given to you by your health care provider. Make sure you discuss any questions you have with your health care provider. Extracted from:Title: [facility] note-AGE Author: YARI NEWBY Date: 03/19/20 1. A cute gastroenteritis l ikely viral, cannot rule out food poisoning. Discussed importance of fluid hydration. Rx for imodium and zofran given for symptom control. 48 hr SIQ given. Follow up if worsening/concern for dehydration or unable to tolerate PO fluids. Ordered: loperamide, 1 tab(s), Oral, every 4 hr, PRN loose stool, not to exceed 16 mg/day, # 24 tab(s), 0 total refill(s), Acute, 03/26/2020, [facility] [No refills remaining] ondansetron, 1 tab(s), Oral, TID, PRN nausea or vomiting, # 10 tab(s), 0 total refill(s), Acute, 03/26/2020, [facility] [No refills remaining] Extracted from:Title: [facility] - ETD + Seasonal Allergy Author: NOEL ANDERSON TSCHAMPL Date: 03/03/20 1. E ustachian tube dysfunction Pt 29 yo m AD USN w/ hx of seasonal allergy w/ ETD and b/l inferior turbinates edematous w/ MPS I more consistent w/ sinus obstruction for his snoring. Plan for a month trial of daily treatment followed by re-evaluation. Ordered: Office Visit Level 4 Est 54367 2. S easonal allergy Noel Anderson MD, MPH Extracted from:Title: [facility] note - URI, sinusitis Author: LEONID CRISSY CLAUDIA Date: 10/29/19 1. U pper respiratory infection 2. S inusitis t he treatment plan was explained to the patient. He should use his medication as directed. He will be given 24 hours SIQ. Orders: amoxicillin-clavulanate, amoxicillin (as trihydrate) 1 tab(s), Oral, every 12 hr, X 7 days, # 14 tab(s), 0 total refill(s), Acute, 11/05/2019, [facility] pharmacy dispense (Rx) [Not filled] dextromethorphan-guaifenesin, 10 mL, Oral, every 4 hr, PRN cough, # 120 mL, 0 total refill(s), Acute, 11/02/2019, [facility] pharmacy dispense (Rx) ibuprofen, 1 tab(s), Oral, every 8 hr, # 30 tab(s), 0 total refill(s), Acute, 11/03/2019, [facility] pharmacy dispense (Rx) [Not filled] oxymetazoline nasal, 3 spray(s), Nostril-Both, BID, # 15 mL, 0 total refill(s), Acute, [facility] pharmacy dispense (Rx) [Not filled] Office Visit Level 3 Est 91627 Extracted from:Title: Ambulatory Patient Education Author: NATHALY FORREST Date: 10/11/19 Patient Education Materials Follows: Upper Respiratory Infection Most upper respiratory infections (URIs) are a viral infection of the air passages leading to the lungs. A URI affects the nose, throat, and upper air passages. The most common type of URI is nasopharyngitis and is typically referred to as the common cold. URIs run their course and usually go away on their own. Most of the time, a URI does not require medical attention, but sometimes a bacterial infection in the upper airways can follow a viral infection. This is called a secondary infection. Sinus and middle ear infections are common types of secondary upper respiratory infections. Bacterial pneumonia can also complicate a URI. A URI can worsen asthma and chronic obstructive pulmonary disease (COPD). Sometimes, these complications can require emergency medical care and may be life threatening. CAUSES Almost all URIs are caused by viruses. A virus is a type of germ and can spread from one person to another. RISKS FACTORS You may be at risk for a URI if: You smoke. You have chronic heart or lung disease. You have a weakened defense (immune) system. You are very young or very old. You have nasal allergies or asthma. You work in crowded or poorly ventilated areas. You work in health care facilities or schools. SIGNS AND SYMPTOMS Symptoms typically develop 2 3 days after you come in contact with a cold virus. Most viral URIs last 7 1 0 days. However, viral URIs from the influenza virus (flu virus) can last 14 1 8 days and are typically more severe. Symptoms may include: Runny or stuffy (congested) nose. Sneezing. Cough. Sore throat. Headache. Fatigue. Fever. Loss of appetite. Pain in your forehead, behind your eyes, and over your cheekbones (sinus pain). Muscle aches. DIAGNOSIS Your health care provider may diagnose a URI by: Physical exam. Tests to check that your symptoms are not due to another condition such as: Strep throat. Sinusitis. Pneumonia. Asthma. TREATMENT A URI goes away on its own with time. It cannot be cured with medicines, but medicines may be prescribed or recommended to relieve symptoms. Medicines may help: Reduce your fever. Reduce your cough. Relieve nasal congestion. HOME CARE INSTRUCTIONS Take medicines only as directed by your health care provider. Gargle warm saltwater or take cough drops to comfort your throat as directed by your health care provider. Use a warm mist humidifier or inhale steam from a shower to increase air moisture. This may make it easier to breathe. Drink enough fluid to keep your urine clear or pale yellow. Eat soups and other clear broths and maintain good nutrition. Rest as needed. Return to work when your temperature has returned to normal or as your health care provider advises. You may need to stay home longer to avoid infecting others. You can also use a face mask and careful hand washing to prevent spread of the virus. Increase the usage of your inhaler if you have asthma. Do not use any tobacco products, including cigarettes, chewing tobacco, or electronic cigarettes. If you need help quitting, ask your health care provider. PREVENTION The best way to protect yourself from getting a cold is to practice good hygiene. Avoid oral or hand contact with people with cold symptoms. Wash your hands often if contact occurs. There is no clear evidence that vitamin C, vitamin E, echinacea, or exercise reduces the chance of developing a cold. However, it is always recommended to get plenty of rest, exercise, and practice good nutrition. SEEK MEDICAL CARE IF: You are getting worse rather than better. Your symptoms are not controlled by medicine. You have chills. You have worsening shortness of breath. You have brown or red mucus. You have yellow or brown nasal discharge. You have pain in your face, especially when you bend forward. You have a fever. You have swollen neck glands. You have pain while swallowing. You have white areas in the back of your throat. SEEK IMMEDIATE MEDICAL CARE IF: You have severe or persistent: Headache. Ear pain. Sinus pain. Chest pain. You have chronic lung disease and any of the following: Wheezing. Prolonged cough. Coughing up blood. A change in your usual mucus. You have a stiff neck. You have changes in your: Vision. Hearing. Thinking. Mood. MAKE SURE YOU: Understand these instructions. Will watch your condition. Will get help right away if you are not doing well or get worse. Document Released: 04/04/2002 Document Revised: 06/12/2015 Document Reviewed: 01/14/2015 [employer] Patient Information 2 015 [facility]. This information is not intended to replace advice given to you by your health care provider. Make sure you discuss any questions you have with your health care provider. Extracted from:Title: [facility] Therapist OP Initial Visit Note Author: YASHIRA MAGALLON Date: 07/18/19 1. A djustment disorder with mixed anxiety and depressed mood Orders: Psychiatric Diagnostic Evaluation 67326 Clinical Global Impression: Moderately Ill (4) Patient Strengths: resilient, optimistic, go-getter Barriers to care: no intellectual/communication/learn ing disabilities Impression: 29 y/o USN/AD male presents to treatment with significant anxiety and depression symptoms secondary to conflict at command. DSM5: Adjustment Disorder with Mixed anxiety and depression Initial Goal: r educe overall anxiety , improve mood and coping, return to premorbid functioning. Goal I: L earn and implement calming skills to reduce overall anxiety (and anger) and manage anxiety symptoms. Outcome/Objective: T each the patient calming/relaxation skills (e.g., applied relaxation, progressive muscle relaxation, cue controlled relaxation, mindful breathing, calming self-talk) and how to discriminate better between relaxation and tension; teach the patient how to apply these skills to his/her daily life. Intervention to be used: I ndividual therapy that will provide a safe environment in order to build trust and rapport with patient and to teach and practice techniques Goal I I: I dentify and replace thoughts and beliefs that support depression Outcome/Objective: M ood improvement by self-report and by reduction of PHQ-9 scores (reduce by 50% and maintain or reduce for 2 consecutive months) Intervention to be used: C onduct Cognitive Behavioral therapy beginning with helping the patient learn the connection among cognition, depressive feelings, and actions. Goal I II: Zana neville will learn and implement problem-solving and/or conflict resolution skills to manage interpersonal and work problems. Outcome/Objective: Pt to use more effective problem-solving and conflict resolution skills 75% of the time in stressful situations three out of 5 days a week. Intervention to be used: I ndividual therapy that will provide a safe environment in order to build trust and rapport with patient so that he/she can learn and practice coping techniques and new cognitive strategies. Patient verbalized understanding and agreement with the above goal. Coordination of Care with Other Specialties/Community Services: Need for Family/Significant Other/Command involveme Update from other services: T he patient is also receiving care from the following services:? 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 H e i s responsible for h is a ctions and subject to the usual channels of discipline. Follow Up: Zana neville agreed to schedule a follow up session with this provider. Treatment will be evidence-based guided and include up to 10 CBT sessions to address depressive symptoms, anxiety, insomnia and stress management. Progress and the need for additional sessions will be assessed using the PHQ, PING, PCL scales. G oal: G AD, PHQ, and PCL to be reduced by 50% and sustained for two consecutive months. Clinical Collaboration: Zana mckeon will review patient s case with h is?PCM, as needed, to ensure continuity of patient care. Medication: Zana neville will take psychotropic medications as and if appropriate and prescribed. Safety Plan: T he patient agreed to contact this provider or emergency services sooner in the event of a mental health emergency, or if h e f eels there is a potential for harm to self or other. The impact of culture/cultural preferences on symptomatology and/or treatment was considered. POC is Dr. Yashira Magallon, Clinical Psychologist at [phone] Yashira Magallon, PhD Clinical Psychologist [facility] Extracted from:Title: Ambulatory Patient Education Author: SAHIL RODRIGEZ Date: 07/04/19 Patient Education Materials Follows: Viral Infections A viral infection can be caused by different types of viruses. M ost viral infections are not serious and resolve on their own. However, some infections may cause severe symptoms and may lead to further complications. SYMPTOMS Viruses can frequently cause: Minor sore throat. Aches and pains. Headaches. Runny nose. Different types of rashes. Watery eyes. Tiredness. Cough. Loss of appetite. Gastrointestinal infections, resulting in nausea, vomiting, and diarrhea. These symptoms do not respond to antibiotics because the infection is not caused by bacteria. However, you might catch a bacterial infection following the viral infection. This is sometimes called a "superinfection. Symptoms of such a bacterial infection may include: Worsening sore throat with pus and difficulty swallowing. Swollen neck glands. Chills and a high or persistent fever. Severe headache. Tenderness over the sinuses. Persistent overall ill feeling (malaise), muscle aches, and tiredness (fatigue). Persistent cough. Yellow, green, or brown mucus production with coughing. HOME CARE INSTRUCTIONS Only take tand-zus-ueamruv or prescription medicines for pain, discomfort, diarrhea, or fever as directed by your caregiver. Drink enough water and fluids to keep your urine clear or pale yellow. Sports drinks can provide valuable electrolytes, sugars, and hydration. Get plenty of rest and maintain proper nutrition. Soups and broths with crackers or rice are fine. SEEK IMMEDIATE MEDICAL CARE IF: You have severe headaches, shortness of breath, chest pain, neck pain, or an unusual rash. You have uncontrolled vomiting, diarrhea, or you are unable to keep down fluids. You or your child has an oral temperature above 102 F (38.9 C), not controlled by medicine. Your baby is older than 3 months with a rectal temperature of 102 F (38.9 C) or higher. Your baby is 3 months old or younger with a rectal temperature of 100.4 F (38 C) or higher. MAKE SURE YOU: Understand these instructions. Will watch your condition. Will get help right away if you are not doing well or get worse. Document Released: 07/19/2006 Document Revised: 12/31/2012 Document Reviewed: 02/13/[address] [facility] Patient Information 2 015 [facility]. This information is not intended to replace advice given to you by your health care provider. Make sure you discuss any questions you have with your health care provider. Nausea and Vomiting Nausea is a sick feeling that often comes before throwing up (vomiting). Vomiting is a reflex where stomach contents come out of your mouth. Vomiting can cause severe loss of body fluids (dehydration). Children and elderly adults can become dehydrated quickly, especially if they also have diarrhea. Nausea and vomiting are symptoms of a condition or disease. It is important to find the cause of your symptoms. CAUSES Direct irritation of the stomach lining. This irritation can result from increased acid production (gastroesophageal reflux disease), infection, food poisoning, taking certain medicines (such as nonsteroidal anti-inflammatory drugs), alcohol use, or tobacco use. Signals from the brain. T hese signals could be caused by a headache, heat exposure, an inner ear disturbance, increased pressure in the brain from injury, infection, a tumor, or a concussion, pain, emotional stimulus, or metabolic problems. An obstruction in the gastrointestinal tract (bowel obstruction). Illnesses such as diabetes, hepatitis, gallbladder problems, appendicitis, kidney problems, cancer, sepsis, atypical symptoms of a heart attack, or eating disorders. Medical treatments such as chemotherapy and radiation. Receiving medicine that makes you sleep (general anesthetic) during surgery. DIAGNOSIS Your caregiver may ask for tests to be done if the problems do not improve after a few days. Tests may also be done if symptoms are severe or if the reason for the nausea and vomiting is not clear. Tests may include: Urine tests. Blood tests. Stool tests. Cultures (to look for evidence of infection). X-rays or other imaging studies. Test results can help your caregiver make decisions about treatment or the need for additional tests. TREATMENT You need to stay well hydrated. Drink frequently but in small amounts. Y ou may wish to drink water, sports drinks, clear broth, or eat frozen ice pops or gelatin dessert to help stay hydrated. When you eat, eating slowly may help prevent nausea. T here are also some antinausea medicines that may help prevent nausea. HOME CARE INSTRUCTIONS Take all medicine as directed by your caregiver. If you do not have an appetite, do not force yourself to eat. However, you must continue to drink fluids. If you have an appetite, eat a normal diet unless your caregiver tells you differently. Eat a variety of complex carbohydrates (rice, wheat, potatoes, bread), lean meats, yogurt, fruits, and vegetables. Avoid high-fat foods because they are more difficult to digest. Drink enough water and fluids to keep your urine clear or pale yellow. If you are dehydrated, ask your caregiver for specific rehydration instructions. Signs of dehydration may include: Severe thirst. Dry lips and mouth. Dizziness. Dark urine. Decreasing urine frequency and amount. Confusion. Rapid breathing or pulse. SEEK IMMEDIATE MEDICAL CARE IF: You have blood or brown flecks (like coffee grounds) in your vomit. You have black or bloody stools. You have a severe headache or stiff neck. You are confused. You have severe abdominal pain. You have chest pain or trouble breathing. You do not urinate at least once every 8 hours. You develop cold or clammy skin. You continue to vomit for longer than 24 to 48 hours. You have a fever. MAKE SURE YOU: Understand these instructions. Will watch your condition. Will get help right away if you are not doing well or get worse. Document Released: 10/09/2006 Document Revised: 12/31/2012 Document Reviewed: 03/07/[address] [facility] Patient Information 2 015 [facility]. This information is not intended to replace advice given to you by your health care provider. Make sure you discuss any questions you have with your health care provider. Anesthesiology Nausea and Vomiting Nausea is a sick feeling that often comes before throwing up (vomiting). Vomiting is a reflex where stomach contents come out of your mouth. Vomiting can cause severe loss of body fluids (dehydration). Children and elderly adults can become dehydrated quickly, especially if they also have diarrhea. Nausea and vomiting are symptoms of a condition or disease. It is important to find the cause of your symptoms. CAUSES Direct irritation of the stomach lining. This irritation can result from increased acid production (gastroesophageal reflux disease), infection, food poisoning, taking certain medicines (such as nonsteroidal anti-inflammatory drugs), alcohol use, or tobacco use. Signals from the brain. T hese signals could be caused by a headache, heat exposure, an inner ear disturbance, increased pressure in the brain from injury, infection, a tumor, or a concussion, pain, emotional stimulus, or metabolic problems. An obstruction in the gastrointestinal tract (bowel obstruction). Illnesses such as diabetes, hepatitis, gallbladder problems, appendicitis, kidney problems, cancer, sepsis, atypical symptoms of a heart attack, or eating disorders. Medical treatments such as chemotherapy and radiation. Receiving medicine that makes you sleep (general anesthetic) during surgery. DIAGNOSIS Your caregiver may ask for tests to be done if the problems do not improve after a few days. Tests may also be done if symptoms are severe or if the reason for the nausea and vomiting is not clear. Tests may include: Urine tests. Blood tests. Stool tests. Cultures (to look for evidence of infection). X-rays or other imaging studies. Test results can help your caregiver make decisions about treatment or the need for additional tests. TREATMENT You need to stay well hydrated. Drink frequently but in small amounts. Y ou may wish to drink water, sports drinks, clear broth, or eat frozen ice pops or gelatin dessert to help stay hydrated. When you eat, eating slowly may help prevent nausea. T here are also some antinausea medicines that may help prevent nausea. HOME CARE INSTRUCTIONS Take all medicine as directed by your caregiver. If you do not have an appetite, do not force yourself to eat. However, you must continue to drink fluids. If you have an appetite, eat a normal diet unless your caregiver tells you differently. Eat a variety of complex carbohydrates (rice, wheat, potatoes, bread), lean meats, yogurt, fruits, and vegetables. Avoid high-fat foods because they are more difficult to digest. Drink enough water and fluids to keep your urine clear or pale yellow. If you are dehydrated, ask your caregiver for specific rehydration instructions. Signs of dehydration may include: Severe thirst. Dry lips and mouth. Dizziness. Dark urine. Decreasing urine frequency and amount. Confusion. Rapid breathing or pulse. SEEK IMMEDIATE MEDICAL CARE IF: You have blood or brown flecks (like coffee grounds) in your vomit. You have black or bloody stools. You have a severe headache or stiff neck. You are confused. You have severe abdominal pain. You have chest pain or trouble breathing. You do not urinate at least once every 8 hours. You develop cold or clammy skin. You continue to vomit for longer than 24 to 48 hours. You have a fever. MAKE SURE YOU: Understand these instructions. Will watch your condition. Will get help right away if you are not doing well or get worse. Document Released: 10/09/2006 Document Revised: 12/31/2012 Document Reviewed: 03/07/[address] [facility] Patient Information 2 015 [facility]. This information is not intended to replace advice given to you by your health care provider. Make sure you discuss any questions you have with your health care provider. Family Medicine Viral Infections A viral infection can be caused by different types of viruses. M ost viral infections are not serious and resolve on their own. However, some infections may cause severe symptoms and may lead to further complications. SYMPTOMS Viruses can frequently cause: Minor sore throat. Aches and pains. Headaches. Runny nose. Different types of rashes. Watery eyes. Tiredness. Cough. Loss of appetite. Gastrointestinal infections, resulting in nausea, vomiting, and diarrhea. These symptoms do not respond to antibiotics because the infection is not caused by bacteria. However, you might catch a bacterial infection following the viral infection. This is sometimes called a "superinfection. Symptoms of such a bacterial infection may include: Worsening sore throat with pus and difficulty swallowing. Swollen neck glands. Chills and a high or persistent fever. Severe headache. Tenderness over the sinuses. Persistent overall ill feeling (malaise), muscle aches, and tiredness (fatigue). Persistent cough. Yellow, green, or brown mucus production with coughing. HOME CARE INSTRUCTIONS Only take tacy-kge-fegdvzb or prescription medicines for pain, discomfort, diarrhea, or fever as directed by your caregiver. Drink enough water and fluids to keep your urine clear or pale yellow. Sports drinks can provide valuable electrolytes, sugars, and hydration. Get plenty of rest and maintain proper nutrition. Soups and broths with crackers or rice are fine. SEEK IMMEDIATE MEDICAL CARE IF: You have severe headaches, shortness of breath, chest pain, neck pain, or an unusual rash. You have uncontrolled vomiting, diarrhea, or you are unable to keep down fluids. You or your child has an oral temperature above 102 F (38.9 C), not controlled by medicine. Your baby is older than 3 months with a rectal temperature of 102 F (38.9 C) or higher. Your baby is 3 months old or younger with a rectal temperature of 100.4 F (38 C) or higher. MAKE SURE YOU: Understand these instructions. Will watch your condition. Will get help right away if you are not doing well or get worse. Document Released: 07/19/2006 Document Revised: 12/31/2012 Document Reviewed: 02/13/[address] [facility] Patient Information 2 015 [facility]. This information is not intended to replace advice given to you by your health care provider. Make sure you discuss any questions you have with your health care provider. 12/10/[address] [place] [address] Assessment and Plan Extracted from:Title : Office Clinic Note Author: CARLA MEEK Date: 09/24/20 1. A cquired hallux limitus of left great toe t reatment today consisted of explanation of manipulation of the scar as well as range of motion activities to help restore the normal dorsiflexion at the first MP joint to allow for proper ambulation. patient is leaving the and is now scheduled for any follow-up care Ordered: [place] [id number] 2. T oe joint painful on movement Ordered: Post[place] [address] Extracted from:Title: Office Clinic Note Author: CARLA MEEK Date: 09/09/20 1. A cquired hallux limitus of left great toe t reatment today consisted of suture removal and application of a sterile dressing. Patient was instructed in postop care. Patient was instructed to keep his foot dry for 48 hours and then may resume all activities to his tolerance. Patient was given a light duty C HIT for 14 days. patient is to return to clinic in 2 weeks for evaluation of his progress and anticipated full return to duty at that time. Ordered: Post[place] [address] 2. E xostosis of left foot Ordered: Postop [place] [address] 3. T oe joint painful on movement Ordered: Postop [place] [address] Extracted from:Title: Office Clinic Note Author: CARLA MEEK Date: 09/03/20 1. A cquired hallux limitus of left great toe Ordered: Postop [place] [address] 2. T oe joint painful on movement t reatment today consisted of dressing change. Reviewed the postop instructions with the patient with emphasis on keeping a dry. May bathe with a shower bag. Patient may resume activities to tolerance with his short leg walking cast boot. Patient is to return to clinic in 1 week for suture removal. Again emphasized the importance of not changing the dressing. p atient may need to have his convalescent extended for a n extra w [place] to 10 days. Ordered: Postop [place] [address] Extracted from:Title: Sep Phys/PHA Author: JP MONTELONGO Date: 08/31/20 1. 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 F/u PRN - Pt advised on how to inquire about missing network pulmonology and sleep study results Ordered: Administration,[facility] Periodic Comp Preventive Med 18 to 39 years Est 92276 Pure Tone Audiometry Air Only 76374 Screening Test Visual Acuity Quantitative Bilat 03666 2. 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 N o acute or chronic medical complaints or conditions identified. Eros vaughan instructed to RTC in 1 year for annual PHA. Ordered: Administration,Pt-[facility] 86478 Periodic Comp Preventive Med 18 to 39 years Est 62930 Pure Tone Audiometry Air Only 74043 Screening Test Visual Acuity Quantitative Bilat 16243 Extracted from:Title: Office Clinic Note Author: CARLA MEEK Date: 07/29/20 1. A cquired hallux limitus of left great toe treatment today consisted of lower extremity history and physical. Discussed the surgical procedure, the postoperative course, the long-term prognosis, and potential complications. Patient understands that depending on the condition of the joint that he may need further surgical intervention consisting of a joint revision with implant versus possibility of fusion. All questions were answered for the patient. Consent was obtained for the planned procedure Ordered: Office Visit Level 4 Est 05531 2. E xostosis of left foot Ordered: Office Visit Level 4 Est 99502 3. T oe joint painful on movement Ordered: Office Visit Level 4 Est 38090 Extracted from:Title: URI - PUI post nasal drip Author: CARLOS CASAS Date: 07/22/20 Sore throat R apid strep negative today. Suspected coronavirus infection Has meds with refills on hand, PUI status [id number] or as otherwise directed. Covid-19 results pending. Extracted from:Title: Snoring Author: JP MONTELONGO Date: 07/13/20 1. O SA - Obstructive sleep apnea S TOP BANG score of 3 + Male placing at high risk for ROSALIND. Pt snores, fatigued during the day, with observed apneic episodes from the . Advised to continue allergy meds as Rx'd, given instructions on referral process, will place referral for sleep study and treat as needed. F/u PRN Ordered: Office Visit Level 3 Est 16985 Extracted from:Title: Office Clinic Note Author: HEIKE ERICKSON Date: 07/02/20 Positive STS Member showed a positive STS in right ear after initial annual audiogram. Member was instructed to follow up as soon as possible 14hrs noise free, but no longer than 30 days to be retested. Extracted from:Title: Office Clinic Note Author: CARLA MEEK MD Date: 07/01/20 1. A cquired hallux limitus of left great toe t reatment today consisted of clinical evaluation. X-rays were reviewed which appear to substantiate a small bony defect from the first metatarsal head probably associated with his injury. Possibility of the bone chip being in the joint and acting as an irritant. Discussed options and the prognosis for correction of this pathology with the patient. Patient elected for surgery on August 27 consisting of a cheilectomy. Patient understands that he may need further surgical intervention if the joint is disease and continues to cause pain with range of motion activities. Ordered: Procedure Not Found 2. T oe joint painful on movement Ordered: Procedure Not Found 3. E xostosis of left foot Extracted from:Title: [facility] - Pain in left foot Author: NOEL ANDERSON Date: 06/08/20 1. P ain in left foot Pt 30 yo m AD USN w/ 1 yr hx of left foot pain consistent to 1st MTM joint after reported for dropping a heaving object on the left foot now w/ persistent pain not improved w/ inserts and making it difficult at an AO for prolong standing. X-ray indicated marginal osteophyte w/ asymmetric joint space narrowing at MTM but no fx or dislocation. 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 Plan to refer to Podiatry for Orthotic assistance. ? Ordered: Medical Referral Request, = 06/15/2020, Routine, Podiatry, Pt 30 yo m AD USN w/ 1 yr hx of left foot pain consistent to 1st MTM joint after reported for dropping a heaving object on the left foot now w/ persistent pain not improved w/ inserts and making it difficult at an AO for... Office Visit Level 4 Est 27453 Noel Anderson MD, MPH Extracted from:Title: [facility] - Snoring +AR+ETD Author: NOEL ANDERSON TSCHAMPL Date: 05/18/20 1. S noring Pt 30 yo m AD USN 28 BMI w/ MPS I w/ ongoing snoring but PE is more consistent w/ AR+ETD.? His labs WNL for no thyroid pathology. Pt who stopped his Claritin and Flonase advised to continue taking his mediation daily. Pt was not advised to use his girlfriends CPAP. I believe his concern stems from sinus related at this time. Pt needs to maximize his treatment and improve his upper airway and reassess his concern. Pt is ready to separate and understand his time concern. Ordered: Office Visit Level 4 Est 51881 2. A llergic rhinitis Ordered: Office Visit Level 4 Est 00800 3. E ustachian tube dysfunction Ordered: Office Visit Level 4 Est 76108 Noel Anderson MD, MPH Extracted from:Title: Office Clinic Note- covid test Author: NATHALY FORREST Date: 04/13/20 1. E xposure to coronavirus infection, S uspected coronavirus infection Suspect that the first c ovid test was too early. B ased on the c onstellation of symptoms pt tested. Pt instructed on isolation at home for 14 days, and following up with PCM for RTW paper work. Results in 3-4 days. Ordered: ondansetron, 1 tab(s), Oral, every 8 hr, PRN Nausea or Vomiting, # 10 tab(s), 0 total refill(s), Maintenance, [facility] [Not [facility]] Headache P t instructed to take tylenol for fever Ordered: acetaminophen, 2 tab(s), Oral, every 4 hr, PRN pain or fever, # 30 tab(s), 0 total refill(s), Acute, 04/21/2020, [facility] [No refills remaining] Extracted from:Title: Ambulatory Patient Education Author: NATHALY FORREST Date: 04/13/20 Patient Education Materials Follows:Medicine Contact Precautions Contact precautions are a way to protect everyone from the spread of certain germs. If you are on contact precautions, you have or may have germs that can be spread by: Urfc-nt-lgbh (direct) contact. Touching items around you that have the germs. RULES FOR PATIENTS Wash your hands often. Limit your time out of your room. Only leave to take tests in other areas of the hospital. Check with your nurse before leaving your room. Wear a gown and a bandage (dressing) over the infected area before leaving your room. RULES FOR VISITORS If there is a Contact Precautions sign on the door: You must check with the nurse before going into the room. You should check with the nurse if you plan to eat or drink in the room. You should ask the nurse about using or touching any items in the room. If allowed into the patient room: Wash your hands with soap and water or use hand security intern before entering the room. Put on a gown and gloves before entering the room. As you leave the room: Take off your gown and then your gloves. Leave them in the room as told. Wash your hands with soap and water or use hand security intern. Document Released: 11/11/2011 Document Revised: 02/03/2014 Document Reviewed: 11/11/2011 ExitCare Patient Information 2 015 [facility]. This information is not intended to replace advice given to you by your health care provider. Make sure you discuss any questions you have with your health care provider. Extracted from:Title: Office Clinic Note Author: JP MONTELONGO Date: 04/13/20 1. I nfluenza-like illness P er HPI, persistent Sx concerning for possible COVID-19. Advised to return to main side URI tend for PE and testing. Pt VUAB. Ordered: Administration,Pt-[facility] 12104 Brief Comm Tech-Based Svc, Virt, Phys, Est Pt; 5-10 Min Med Dis G2012 Unlisted Evaluation and Management Service 41610 Extracted from:Title: Office Clinic Note-pharyngitis Author: NATHALY FORREST Date: 04/08/20 1. P haryngitis S ore throat x 3 hours. Pt has not been identified as a close contact. Pt instructed to ROM for 48 if he develops any symptoms then he is to RTC for retesting. Pt is to follow up as needed. Ordered: Office Visit Level 3 Est 11717 Extracted from:Title: Ambulatory Patient Education Author: NATHALY FORREST Date: 04/08/20 Patient Education Materials Follows:Medicine Pharyngitis Pharyngitis is a sore throat (pharynx). There is redness, pain, and swelling of your throat. HOME CARE Drink enough fluids to keep your pee (urine) clear or pale yellow. Only take medicine as told by your doctor. You may get sick again if you do not take medicine as told. Finish your medicines, even if you start to feel better. Do not take aspirin. Rest. Rinse your mouth (gargle) with salt water ( tsp of salt per 1 qt of water) every 1?2 hours. This will help the pain. If you are not at risk for choking, you can suck on hard candy or sore throat lozenges. GET HELP IF: You have large, tender lumps on your neck. You have a rash. You cough up green, yellow-brown, or bloody spit. GET HELP RIGHT AWAY IF: You have a stiff neck. You drool or cannot swallow liquids. You throw up (vomit) or are not able to keep medicine or liquids down. You have very bad pain that does not go away with medicine. You have problems breathing (not from a stuffy nose). MAKE SURE YOU: Understand these instructions. Will watch your condition. Will get help right away if you are not doing well or get worse. Document Released: 03/27/2009 Document Revised: 07/30/2014 Document Reviewed: 06/16/2014 ExitCare Patient Information 2 015 [facility]. This information is not intended to replace advice given to you by your health care provider. Make sure you discuss any questions you have with your health care provider. Extracted from:Title: Ambulatory Patient Education Author: YARI NEWBY Date: 03/19/20 Patient Education Materials Follows:Medicine Food Choices to Help Relieve Diarrhea When you have diarrhea, the foods you eat and your eating habits are very important. Choosing the right foods and drinks can help relieve diarrhea. Also, because diarrhea can last up to 7 days, you need to replace lost fluids and electrolytes (such as sodium, potassium, and chloride) in order to help prevent dehydration. WHAT GENERAL GUIDELINES DO I NEED TO FOLLOW? Slowly drink 1 cup (8 oz) of fluid for each episode of diarrhea. If you are getting enough fluid, your urine will be clear or pale yellow. Eat starchy foods. Some good choices include white rice, white toast, pasta, low-fiber cereal, baked potatoes (without the skin), saltine crackers, and bagels. Avoid large servings of any cooked vegetables. Limit fruit to two servings per day. A serving is cup or 1 small piece. Choose foods with less than 2 g of fiber per serving. Limit fats to less than 8 tsp (38 g) per day. Avoid fried foods. Eat foods that have probiotics in them. Probiotics can be found in certain dairy products. Avoid foods and beverages that may increase the speed at which food moves through the stomach and intestines (gastrointestinal tract). Things to avoid include: High-fiber foods, such as dried fruit, raw fruits and vegetables, nuts, seeds, and whole grain foods. Spicy foods and high-fat foods. Foods and beverages sweetened with high-fructose corn syrup, honey, or sugar alcohols such as xylitol, sorbitol, and mannitol. WHAT FOODS ARE RECOMMENDED? Grains White rice. White, Bengali, or jane breads (fresh or toasted), including plain rolls, buns, or bagels. White pasta. Saltine, soda, or fidencio crackers. Pretzels. Low-fiber cereal. Cooked cereals made with water (such as cornmeal, farina, or cream cereals). Plain muffins. Matzo. [place] toast. Zwieback. Vegetables Potatoes (without the skin). Strained tomato and vegetable juices. Most well-cooked and canned vegetables without seeds. Tender lettuce. Fruits Cooked or canned applesauce, apricots, cherries, fruit cocktail, grapefruit, peaches, pears, or plums. Fresh bananas, apples without skin, cherries, grapes, cantaloupe, grapefruit, peaches, oranges, or plums. Meat and Other Protein Products Baked or boiled chicken. Eggs. Tofu. Fish. Seafood. Smooth peanut butter. Ground or well-cooked tender beef, ham, veal, jacobs, pork, or poultry. Dairy Plain yogurt, kefir, and unsweetened liquid yogurt. Lactose-free milk, buttermilk, or soy milk. Plain hard cheese. Beverages Sport drinks. Clear broths. Diluted fruit juices (except prune). Regular, caffeine-free sodas such as jacinda bailee. Water. Decaffeinated teas. Oral rehydration solutions. Sugar-free beverages not sweetened with sugar alcohols. Other Bouillon, broth, or soups made from recommended foods. The items listed above may not be a complete list of recommended foods or beverages. Contact your dietitian for more options. WHAT FOODS ARE NOT RECOMMENDED? Grains Whole grain, whole wheat, bran, or rye breads, rolls, pastas, crackers, and cereals. Wild or brown rice. Cereals that contain more than 2 g of fiber per serving. [place] tortillas or taco shells. Cooked or dry oatmeal. Granola. Popcorn. Vegetables Raw vegetables. Cabbage, broccoli, [place] sprouts, artichokes, baked beans, beet greens, corn, kale, legumes, peas, sweet potatoes, and yams. Potato skins. Cooked spinach and cabbage. Fruits Dried fruit, including raisins and dates. Raw fruits. Stewed or dried prunes. Fresh apples with skin, apricots, mangoes, pears, raspberries, and strawberries. Meat and Other Protein Products [place] peanut butter. Nuts and seeds. Beans and lentils. Aburto. Dairy High-fat cheeses. Milk, chocolate milk, and beverages made with milk, such as milk shakes. Cream. Ice cream. Sweets and Desserts Sweet rolls, doughnuts, and sweet breads. Pancakes and waffles. Fats and Oils Butter. Cream sauces. Margarine. Salad oils. Plain salad dressings. Olives. Avocados. Beverages Caffeinated beverages (such as coffee, tea, soda, or energy drinks). Alcoholic beverages. Fruit juices with pulp. Prune juice. Soft drinks sweetened with high-fructose corn syrup or sugar alcohols. Other Coconut. Hot sauce. [place] powder. Mayonnaise. Gravy. Cream-based or milk-based soups. The items listed above may not be a complete list of foods and beverages to avoid. Contact your dietitian for more information. WHAT SHOULD I DO IF I BECOME DEHYDRATED? Diarrhea can sometimes lead to dehydration. Signs of dehydration include dark urine and dry mouth and skin. If you think you are dehydrated, you should rehydrate with an oral rehydration solution. These solutions can be purchased at pharmacies, retail stores, or online. Drink 1 cup (120 2 40 mL) of oral rehydration solution each time you have an episode of diarrhea. If drinking this amount makes your diarrhea worse, try drinking smaller amounts more often. For example, drink 1 3 tsp (5-15 mL) every 5 1 0 minutes. A general rule for staying hydrated is to drink 1 2 L of fluid per day. Talk to your health care provider about the specific amount you should be drinking each day. Drink enough fluids to keep your urine clear or pale yellow. Document Released: 12/29/2004 Document Revised: 10/14/2014 Document Reviewed: 09/01/2014 ExitCare Patient Information 2 015 [facility]. This information is not intended to replace advice given to you by your health care provider. Make sure you discuss any questions you have with your health care provider. Extracted from:Title: [facility] note-AGE Author: YARI NEWBY Date: 03/19/20 1. A cute gastroenteritis l ikely viral, cannot rule out food poisoning. Discussed importance of fluid hydration. Rx for imodium and zofran given for symptom control. 48 hr SIQ given. Follow up if worsening/concern for dehydration or unable to tolerate PO fluids. Ordered: loperamide, 1 tab(s), Oral, every 4 hr, PRN loose stool, not to exceed 16 mg/day, # 24 tab(s), 0 total refill(s), Acute, 03/26/2020, [facility] [No refills remaining] ondansetron, 1 tab(s), Oral, TID, PRN nausea or vomiting, # 10 tab(s), 0 total refill(s), Acute, 03/26/2020, [facility] [No refills remaining] Extracted from:Title: [facility] - ETD + Seasonal Allergy Author: NOEL ANDERSONPL Date: 03/03/20 1. E ustachian tube dysfunction Pt 29 yo m AD USN w/ hx of seasonal allergy w/ ETD and b/l inferior turbinates edematous w/ MPS I more consistent w/ sinus obstruction for his snoring. Plan for a month trial of daily treatment followed by re-evaluation. Ordered: Office Visit Level 4 Est 12004 2. S easonal allergy Noel Anderson MD, MPH Extracted from:Title: [facility] note - URI, sinusitis Author: CRISSY JAQUEZ Date: 10/29/19 1. U pper respiratory infection 2. S inusitis t he treatment plan was explained to the patient. He should use his medication as directed. He will be given 24 hours SIQ. Orders: amoxicillin-clavulanate, amoxicillin (as trihydrate) 1 tab(s), Oral, every 12 hr, X 7 days, # 14 tab(s), 0 total refill(s), Acute, 11/05/2019, [facility] pharmacy dispense (Rx) [Not filled] dextromethorphan-guaifenesin, 10 mL, Oral, every 4 hr, PRN cough, # 120 mL, 0 total refill(s), Acute, 11/02/2019, [facility] pharmacy dispense (Rx) ibuprofen, 1 tab(s), Oral, every 8 hr, # 30 tab(s), 0 total refill(s), Acute, 11/03/2019, [facility] pharmacy dispense (Rx) [Not filled] oxymetazoline nasal, 3 spray(s), Nostril-Both, BID, # 15 mL, 0 total refill(s), Acute, [facility] pharmacy dispense (Rx) [Not filled] Office Visit Level 3 Est 79312 Extracted from:Title: Ambulatory Patient Education Author: NATHALY FORREST Date: 10/11/19 Patient Education Materials Follows: Upper Respiratory Infection Most upper respiratory infections (URIs) are a viral infection of the air passages leading to the lungs. A URI affects the nose, throat, and upper air passages. The most common type of URI is nasopharyngitis and is typically referred to as the common cold. URIs run their course and usually go away on their own. Most of the time, a URI does not require medical attention, but sometimes a bacterial infection in the upper airways can follow a viral infection. This is called a secondary infection. Sinus and middle ear infections are common types of secondary upper respiratory infections. Bacterial pneumonia can also complicate a URI. A URI can worsen asthma and chronic obstructive pulmonary disease (COPD). Sometimes, these complications can require emergency medical care and may be life threatening. CAUSES Almost all URIs are caused by viruses. A virus is a type of germ and can spread from one person to another. RISKS FACTORS You may be at risk for a URI if: You smoke. You have chronic heart or lung disease. You have a weakened defense (immune) system. You are very young or very old. You have nasal allergies or asthma. You work in crowded or poorly ventilated areas. You work in health care facilities or schools. SIGNS AND SYMPTOMS Symptoms typically develop 2 3 days after you come in contact with a cold virus. Most viral URIs last 7 1 0 days. However, viral URIs from the influenza virus (flu virus) can last 14 1 8 days and are typically more severe. Symptoms may include: Runny or stuffy (congested) nose. Sneezing. Cough. Sore throat. Headache. Fatigue. Fever. Loss of appetite. Pain in your forehead, behind your eyes, and over your cheekbones (sinus pain). Muscle aches. DIAGNOSIS Your health care provider may diagnose a URI by: Physical exam. Tests to check that your symptoms are not due to another condition such as: Strep throat. Sinusitis. Pneumonia. Asthma. TREATMENT A URI goes away on its own with time. It cannot be cured with medicines, but medicines may be prescribed or recommended to relieve symptoms. Medicines may help: Reduce your fever. Reduce your cough. Relieve nasal congestion. HOME CARE INSTRUCTIONS Take medicines only as directed by your health care provider. Gargle warm saltwater or take cough drops to comfort your throat as directed by your health care provider. Use a warm mist humidifier or inhale steam from a shower to increase air moisture. This may make it easier to breathe. Drink enough fluid to keep your urine clear or pale yellow. Eat soups and other clear broths and maintain good nutrition. Rest as needed. Return to work when your temperature has returned to normal or as your health care provider advises. You may need to stay home longer to avoid infecting others. You can also use a face mask and careful hand washing to prevent spread of the virus. Increase the usage of your inhaler if you have asthma. Do not use any tobacco products, including cigarettes, chewing tobacco, or electronic cigarettes. If you need help quitting, ask your health care provider. PREVENTION The best way to protect yourself from getting a cold is to practice good hygiene. Avoid oral or hand contact with people with cold symptoms. Wash your hands often if contact occurs. There is no clear evidence that vitamin C, vitamin E, echinacea, or exercise reduces the chance of developing a cold. However, it is always recommended to get plenty of rest, exercise, and practice good nutrition. SEEK MEDICAL CARE IF: You are getting worse rather than better. Your symptoms are not controlled by medicine. You have chills. You have worsening shortness of breath. You have brown or red mucus. You have yellow or brown nasal discharge. You have pain in your face, especially when you bend forward. You have a fever. You have swollen neck glands. You have pain while swallowing. You have white areas in the back of your throat. SEEK IMMEDIATE MEDICAL CARE IF: You have severe or persistent: Headache. Ear pain. Sinus pain. Chest pain. You have chronic lung disease and any of the following: Wheezing. Prolonged cough. Coughing up blood. A change in your usual mucus. You have a stiff neck. You have changes in your: Vision. Hearing. Thinking. Mood. MAKE SURE YOU: Understand these instructions. Will watch your condition. Will get help right away if you are not doing well or get worse. Document Released: 04/04/2002 Document Revised: 06/12/2015 Document Reviewed: 01/14/2015 ExitCare Patient Information 2 015 [facility]. This information is not intended to replace advice given to you by your health care provider. Make sure you discuss any questions you have with your health care provider. Extracted from:Title: BE[facility] Therapist OP Initial Visit Note Author: YASHIRA MAGALLON Date: 07/18/19 1. A djustment disorder with mixed anxiety and depressed mood Orders: Psychiatric Diagnostic Evaluation 48439 Clinical Global Impression: Moderately Ill (4) Patient Strengths: resilient, optimistic, go-getter Barriers to care: no intellectual/communication/learn ing disabilities Impression: 29 y/o USN/AD male presents to treatment with significant anxiety and depression symptoms secondary to conflict at command. DSM5: Adjustment Disorder with Mixed anxiety and depression Initial Goal: r educe overall anxiety , improve mood and coping, return to premorbid functioning. Goal I: L earn and implement calming skills to reduce overall anxiety (and anger) and manage anxiety symptoms. Outcome/Objective: T each the patient calming/relaxation skills (e.g., applied relaxation, progressive muscle relaxation, cue controlled relaxation, mindful breathing, calming self-talk) and how to discriminate better between relaxation and tension; teach the patient how to apply these skills to his/her daily life. Intervention to be used: I ndividual therapy that will provide a safe environment in order to build trust and rapport with patient and to teach and practice techniques Goal I I: I dentify and replace thoughts and beliefs that support depression Outcome/Objective: M ood improvement by self-report and by reduction of PHQ-9 scores (reduce by 50% and maintain or reduce for 2 consecutive months) Intervention to be used: C onduct Cognitive Behavioral therapy beginning with helping the patient learn the connection among cognition, depressive feelings, and actions. Goal I II: P atient will learn and implement problem-solving and/or conflict resolution skills to manage interpersonal and work problems. Outcome/Objective: Pt to use more effective problem-solving and conflict resolution skills 75% of the time in stressful situations three out of 5 days a week. Intervention to be used: I ndividual therapy that will provide a safe environment in order to build trust and rapport with patient so that he/she can learn and practice coping techniques and new cognitive strategies. Patient verbalized understanding and agreement with the above goal. Coordination of Care with Other Specialties/Community Services: Need for Family/Significant Other/Command involveme Update from other services: T he patient is also receiving care from the following services:? 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 H e i s responsible for h is a ctions and subject to the usual channels of discipline. Follow Up: Zana neville agreed to schedule a follow up session with this provider. Treatment will be evidence-based guided and include up to 10 CBT sessions to address depressive symptoms, anxiety, insomnia and stress management. Progress and the need for additional sessions will be assessed using the PHQ, PING, PCL scales. G oal: G AD, PHQ, and PCL to be reduced by 50% and sustained for two consecutive months. Clinical Collaboration: Zana mckeon will review patient s case with h is?PCM, as needed, to ensure continuity of patient care. Medication: Zana neville will take psychotropic medications as and if appropriate and prescribed. Safety Plan: T he patient agreed to contact this provider or emergency services sooner in the event of a mental health emergency, or if h e f eels there is a potential for harm to self or other. The impact of culture/cultural preferences on symptomatology and/or treatment was considered. POC is Dr. Yashira Magallon, Clinical Psychologist at [phone] Yashira Magallon, PhD Clinical Psychologist [facility] Extracted from:Title: Ambulatory Patient Education Author: SAHIL RODRIGEZ Date: 07/04/19 Patient Education Materials Follows: Viral Infections A viral infection can be caused by different types of viruses. M ost viral infections are not serious and resolve on their own. However, some infections may cause severe symptoms and may lead to further complications. SYMPTOMS Viruses can frequently cause: Minor sore throat. Aches and pains. Headaches. Runny nose. Different types of rashes. Watery eyes. Tiredness. Cough. Loss of appetite. Gastrointestinal infections, resulting in nausea, vomiting, and diarrhea. These symptoms do not respond to antibiotics because the infection is not caused by bacteria. However, you might catch a bacterial infection following the viral infection. This is sometimes called a "superinfection. Symptoms of such a bacterial infection may include: Worsening sore throat with pus and difficulty swallowing. Swollen neck glands. Chills and a high or persistent fever. Severe headache. Tenderness over the sinuses. Persistent overall ill feeling (malaise), muscle aches, and tiredness (fatigue). Persistent cough. Yellow, green, or brown mucus production with coughing. HOME CARE INSTRUCTIONS Only take [id number] or prescription medicines for pain, discomfort, diarrhea, or fever as directed by your caregiver. Drink enough water and fluids to keep your urine clear or pale yellow. Sports drinks can provide valuable electrolytes, sugars, and hydration. Get plenty of rest and maintain proper nutrition. Soups and broths with crackers or rice are fine. SEEK IMMEDIATE MEDICAL CARE IF: You have severe headaches, shortness of breath, chest pain, neck pain, or an unusual rash. You have uncontrolled vomiting, diarrhea, or you are unable to keep down fluids. You or your child has an oral temperature above 102 F (38.9 C), not controlled by medicine. Your baby is older than 3 months with a rectal temperature of 102 F (38.9 C) or higher. Your baby is 3 months old or younger with a rectal temperature of 100.4 F (38 C) or higher. MAKE SURE YOU: Understand these instructions. Will watch your condition. Will get help right away if you are not doing well or get worse. Document Released: 07/19/2006 Document Revised: 12/31/2012 Document Reviewed: 02/13/[address] [facility] Patient Information 2 015 [facility]. This information is not intended to replace advice given to you by your health care provider. Make sure you discuss any questions you have with your health care provider. Nausea and Vomiting Nausea is a sick feeling that often comes before throwing up (vomiting). Vomiting is a reflex where stomach contents come out of your mouth. Vomiting can cause severe loss of body fluids (dehydration). Children and elderly adults can become dehydrated quickly, especially if they also have diarrhea. Nausea and vomiting are symptoms of a condition or disease. It is important to find the cause of your symptoms. CAUSES Direct irritation of the stomach lining. This irritation can result from increased acid production (gastroesophageal reflux disease), infection, food poisoning, taking certain medicines (such as nonsteroidal anti-inflammatory drugs), alcohol use, or tobacco use. Signals from the brain. T hese signals could be caused by a headache, heat exposure, an inner ear disturbance, increased pressure in the brain from injury, infection, a tumor, or a concussion, pain, emotional stimulus, or metabolic problems. An obstruction in the gastrointestinal tract (bowel obstruction). Illnesses such as diabetes, hepatitis, gallbladder problems, appendicitis, kidney problems, cancer, sepsis, atypical symptoms of a heart attack, or eating disorders. Medical treatments such as chemotherapy and radiation. Receiving medicine that makes you sleep (general anesthetic) during surgery. DIAGNOSIS Your caregiver may ask for tests to be done if the problems do not improve after a few days. Tests may also be done if symptoms are severe or if the reason for the nausea and vomiting is not clear. Tests may include: Urine tests. Blood tests. Stool tests. Cultures (to look for evidence of infection). X-rays or other imaging studies. Test results can help your caregiver make decisions about treatment or the need for additional tests. TREATMENT You need to stay well hydrated. Drink frequently but in small amounts. Y ou may wish to drink water, sports drinks, clear broth, or eat frozen ice pops or gelatin dessert to help stay hydrated. When you eat, eating slowly may help prevent nausea. T here are also some antinausea medicines that may help prevent nausea. HOME CARE INSTRUCTIONS Take all medicine as directed by your caregiver. If you do not have an appetite, do not force yourself to eat. However, you must continue to drink fluids. If you have an appetite, eat a normal diet unless your caregiver tells you differently. Eat a variety of complex carbohydrates (rice, wheat, potatoes, bread), lean meats, yogurt, fruits, and vegetables. Avoid high-fat foods because they are more difficult to digest. Drink enough water and fluids to keep your urine clear or pale yellow. If you are dehydrated, ask your caregiver for specific rehydration instructions. Signs of dehydration may include: Severe thirst. Dry lips and mouth. Dizziness. Dark urine. Decreasing urine frequency and amount. Confusion. Rapid breathing or pulse. SEEK IMMEDIATE MEDICAL CARE IF: You have blood or brown flecks (like coffee grounds) in your vomit. You have black or bloody stools. You have a severe headache or stiff neck. You are confused. You have severe abdominal pain. You have chest pain or trouble breathing. You do not urinate at least once every 8 hours. You develop cold or clammy skin. You continue to vomit for longer than 24 to 48 hours. You have a fever. MAKE SURE YOU: Understand these instructions. Will watch your condition. Will get help right away if you are not doing well or get worse. Document Released: 10/09/2006 Document Revised: 12/31/2012 Document Reviewed: 03/07/2012 [employer] Patient Information 2 015 [facility]. This information is not intended to replace advice given to you by your health care provider. Make sure you discuss any questions you have with your health care provider. Anesthesiology Nausea and Vomiting Nausea is a sick feeling that often comes before throwing up (vomiting). Vomiting is a reflex where stomach contents come out of your mouth. Vomiting can cause severe loss of body fluids (dehydration). Children and elderly adults can become dehydrated quickly, especially if they also have diarrhea. Nausea and vomiting are symptoms of a condition or disease. It is important to find the cause of your symptoms. CAUSES Direct irritation of the stomach lining. This irritation can result from increased acid production (gastroesophageal reflux disease), infection, food poisoning, taking certain medicines (such as nonsteroidal anti-inflammatory drugs), alcohol use, or tobacco use. Signals from the brain. T hese signals could be caused by a headache, heat exposure, an inner ear disturbance, increased pressure in the brain from injury, infection, a tumor, or a concussion, pain, emotional stimulus, or metabolic problems. An obstruction in the gastrointestinal tract (bowel obstruction). Illnesses such as diabetes, hepatitis, gallbladder problems, appendicitis, kidney problems, cancer, sepsis, atypical symptoms of a heart attack, or eating disorders. Medical treatments such as chemotherapy and radiation. Receiving medicine that makes you sleep (general anesthetic) during surgery. DIAGNOSIS Your caregiver may ask for tests to be done if the problems do not improve after a few days. Tests may also be done if symptoms are severe or if the reason for the nausea and vomiting is not clear. Tests may include: Urine tests. Blood tests. Stool tests. Cultures (to look for evidence of infection). X-rays or other imaging studies. Test results can help your caregiver make decisions about treatment or the need for additional tests. TREATMENT You need to stay well hydrated. Drink frequently but in small amounts. Y ou may wish to drink water, sports drinks, clear broth, or eat frozen ice pops or gelatin dessert to help stay hydrated. When you eat, eating slowly may help prevent nausea. T here are also some antinausea medicines that may help prevent nausea. HOME CARE INSTRUCTIONS Take all medicine as directed by your caregiver. If you do not have an appetite, do not force yourself to eat. However, you must continue to drink fluids. If you have an appetite, eat a normal diet unless your caregiver tells you differently. Eat a variety of complex carbohydrates (rice, wheat, potatoes, bread), lean meats, yogurt, fruits, and vegetables. Avoid high-fat foods because they are more difficult to digest. Drink enough water and fluids to keep your urine clear or pale yellow. If you are dehydrated, ask your caregiver for specific rehydration instructions. Signs of dehydration may include: Severe thirst. Dry lips and mouth. Dizziness. Dark urine. Decreasing urine frequency and amount. Confusion. Rapid breathing or pulse. SEEK IMMEDIATE MEDICAL CARE IF: You have blood or brown flecks (like coffee grounds) in your vomit. You have black or bloody stools. You have a severe headache or stiff neck. You are confused. You have severe abdominal pain. You have chest pain or trouble breathing. You do not urinate at least once every 8 hours. You develop cold or clammy skin. You continue to vomit for longer than 24 to 48 hours. You have a fever. MAKE SURE YOU: Understand these instructions. Will watch your condition. Will get help right away if you are not doing well or get worse. Document Released: 10/09/2006 Document Revised: 12/31/2012 Document Reviewed: 03/07/[address] [facility] Patient Information 2 015 [facility]. This information is not intended to replace advice given to you by your health care provider. Make sure you discuss any questions you have with your health care provider. Family Medicine Viral Infections A viral infection can be caused by different types of viruses. M ost viral infections are not serious and resolve on their own. However, some infections may cause severe symptoms and may lead to further complications. SYMPTOMS Viruses can frequently cause: Minor sore throat. Aches and pains. Headaches. Runny nose. Different types of rashes. Watery eyes. Tiredness. Cough. Loss of appetite. Gastrointestinal infections, resulting in nausea, vomiting, and diarrhea. These symptoms do not respond to antibiotics because the infection is not caused by bacteria. However, you might catch a bacterial infection following the viral infection. This is sometimes called a "superinfection. Symptoms of such a bacterial infection may include: Worsening sore throat with pus and difficulty swallowing. Swollen neck glands. Chills and a high or persistent fever. Severe headache. Tenderness over the sinuses. Persistent overall ill feeling (malaise), muscle aches, and tiredness (fatigue). Persistent cough. Yellow, green, or brown mucus production with coughing. HOME CARE INSTRUCTIONS Only take [id number] or prescription medicines for pain, discomfort, diarrhea, or fever as directed by your caregiver. Drink enough water and fluids to keep your urine clear or pale yellow. Sports drinks can provide valuable electrolytes, sugars, and hydration. Get plenty of rest and maintain proper nutrition. Soups and broths with crackers or rice are fine. SEEK IMMEDIATE MEDICAL CARE IF: You have severe headaches, shortness of breath, chest pain, neck pain, or an unusual rash. You have uncontrolled vomiting, diarrhea, or you are unable to keep down fluids. You or your child has an oral temperature above 102 F (38.9 C), not controlled by medicine. Your baby is older than 3 months with a rectal temperature of 102 F (38.9 C) or higher. Your baby is 3 months old or younger with a rectal temperature of 100.4 F (38 C) or higher. MAKE SURE YOU: Understand these instructions. Will watch your condition. Will get help right away if you are not doing well or get worse. Document Released: 07/19/2006 Document Revised: 12/31/2012 Document Reviewed: 02/13/2012 [employer] Patient Information 2 015 [facility]. This information is not intended to replace advice given to you by your health care provider. Make sure you discuss any questions you have with your health care provider. 12/10/2024 [facility] Functional Status Combined list of recent functional and cognitive assessments recorded at [employer] Functional [place] Measurement (FIM) Scale: 1 = Total Assistance (Subject = 0% +), 2 = Maximal Assistance (Subject = 25% +), 3 = Moderate Assistance (Subject = 50% +), 4 = Minimal Assistance (Subject = 75% +), 5 = Supervision, 6 = Modified [place] (Device), 7 = Complete [place] (Timely, Safely). Assessment Date/Time Source Assessment Type Assessment Skill Assessment Score Assessment Details FUNCTIONAL 08/27/20H ome Equipment Crutches 08/27/20Living Situation Home independently 07/29/20Ability to Read/Write Able to read, Able to write 10/28/19Home Dietary Supplements Captured Unable to obtain
[2024-12-10 08:17] VITALS: BP 123/77; PULSE 68; RESP 16; TEMP 36.8; O2SAT 97
--- OUTSIDE RECORDS SUMMARY | 2024-12-10 08:30 | XMS_ITS | Continuity of Care Document ---
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 Chest pain 11/30/2019 12/01/2019 50 [facility] Medications Medication Details Route Status Patient Instructions Ordering Provider Order Date Source Aluminum Hydroxide 40 MG/ML / Magnesium Hydroxide 40 MG/ML / Simethicone 4 MG/ML Oral Suspension [Mylanta] 5 mL, ORAL, QID, PRN for control of stomach acid, # 360 mL, 0 Refill(s), Acute Active 020 50 [facility] Cyclobenzaprine hydrochloride 5 MG Oral Tablet [Flexeril] = 1 Tab, ORAL, BID, PRN Muscle spasm, # 10 Tab, 0 Refill(s), Maintenance Active 018 50 [facility] Ondansetron 4 MG Disintegrating Tablet [Zofran] = 1 DT_Tab, ORAL, TID, PRN Nausea/Vomiti ng, allow tablet to dissolve on tongue, # 12 Tab, 0 Refill(s), Soft Stop Active 018 50 [facility] Promethazine Hydrochloride 12.5 MG Oral Tablet [Phenergan] = 1 Tab, ORAL, Q6H, PRN as needed for nausea/vomiti ng, # 12 Tab, 0 Refill(s), Maintenance, Pharmacy: [id number] Active 017 50 [facility] dextromethorphan- promethazine 15 mg-6.25 mg/5 ml oral syrup 5 mL, ORAL, Q6H, PRN for cough, # 200 mL, 0 Refill(s), Maintenance Active 016 50 [facility] Ibuprofen 800 MG Oral Tablet = 1 Tab, ORAL, TID, PRN for pain, with food or milk, # 21 Tab, 0 Refill(s), Maintenance Active 016 50 [facility] Allergies, Adverse Reactions, Alerts Substance Category Reaction Severity Reaction type Status Date Reported Comments Source morphine Assertion Drug allergy Active 50 [facility] Aleve Assertion Drug allergy Active 50 [facility] Results Order Name Results Value Reference Range Date Interpretation Comments Source AutoDif f* Auto Neutrophil Percent 54.8 % 46.0 - 78.0 12/01 [facility] AutoDif f* Auto Neutrophil Absolute 2.3 K/mm3 1.4 - 7.2 12/01 [facility] AutoDif f* Auto Lymphocyte Percent 28.7 % 9.0 - 42.0 12/01 [facility] AutoDif f* Auto Lymphocyte Absolute 1.2 K/mm3 0.8 - 4.4 12/01 [facility] AutoDif f* Auto Monocyte Percent 10.0 % 0.0 - 10.0 12/01 [facility] AutoDif f* Auto Monocyte Absolute 0.4 K/mm3 0.2 - 1.6 12/01 [facility] AutoDif f* Auto Eosinophil Percent 5.5 % 0.0 - 7.0 12/01 [facility] AutoDif f* Auto Eosinophil Absolute 0.2 K/mm3 0.0 - 0.7 12/01 [facility] AutoDif f* Auto Basophil Percent 1.0 % 0.0 - 3.0 12/01 [facility] AutoDif f* Auto Basophil Absolute 0.0 K/mm3 0.0 - 0.2 12/01 [facility] AutoDif f* Auto NRBC % 0.2 % 12/01 [facility] CBC WBC 4.30 K/mm3 4.50 - 11.00 12/01 L [facility] CBC RBC 4.91 M/mm3 4.50 - 5.90 12/01 [facility] CBC HGB 15.4 gm/dL 13.5 - 17.5 12/01 [facility] CBC HCT 45.9 % 37.0 - 49.0 12/01 [facility] CBC MCV 93.4 fL 80.0 - 99.0 12/01 [facility] CBC MCH 31.4 pg 26.0 - 34.0 12/01 [facility] CBC MCHC 33.6 gm/dL 32.5 - 35.5 12/01 [facility] CBC RDW 13.1 % 11.5 - 14.5 12/01 [facility] CBC PLT 222 K/mm3 150 - 400 12/01 [facility] CBC MPV 9.9 fL 7.4 - 10.4 12/01 [facility] CMP Sodium Level 141 mmol/L 136 - 144 12/01 [facility] CMP Potassium Level 4.3 mmol/L 3.1 - 5.2 12/01 [facility] CMP Chloride Level 103 mmol/L 101 - 111 12/01 [facility] CMP CO2/Carbon Dioxide 30 mmol/L 22 - 32 12/01 [facility] CMP Anion Gap 8 mmol/L 5 - 15 12/01 [facility] CMP Glucose, Random 94 mg/dL 70 - 110 12/01 [facility] CMP BUN 12 mg/dL 8 - 19 12/01 [facility] CMP Creatinine 1.2 mg/dL 0.7 - 1.3 12/01 [facility] CMP BUN/Creat Ratio 10 15 - 24 12/01 L [facility] CMP Osmolality, Calculated 281 mOsm/L 275 - 295 12/01 [facility] CMP Calcium Level 10.2 mg/dL 8.9 - 10.3 12/01 [facility] CMP Total Protein 7.5 gm/dL 6.5 - 8.1 12/01 [facility] CMP Albumin Level 4.8 gm/dL 3.5 - 5.0 12/01 [facility] CMP Globulin Level 2.7 gm/dL 2.6 - 4.0 12/01 [facility] CMP A/G Ratio 1.8 1.5 - 3.0 12/01 NA [facility] CMP ALP 62 IntUni t/L 30 - 114 12/01 NA [facility] CMP ALT 22 IntUni t/L 14 - 63 12/01 NA [facility] AST 25 IntUni t/L 15 - 41 12/01 [facility] Bilirubin, Total 0.7 mg/dL 0.0 - 1.2 12/01 NA J-ifjgry-p-benzo quinone imine (NAPQI), a metabolite of acetaminophen (paracetamol), may generate erroneously low results in samples for patients that have taken toxic doses of acetaminophen (paracetamol) [facility] CMP GFR - Non >60 mL/min /1.73m 2 >=60 12/01 NA GFR 60 or more [id number] Moderately [id number] Severely [id number] or less Kidney FailureEstimated GFR not accurate for persons <18 or >69 years old.Equation: 186 x (Serum Creat)*EXP(-1.15 4) x (Age)*EXP(-0.203 ) x (0.742 if female) x (1.210 if ) [facility] CMP GFR - >60 mL/min /1.73m 2 >=60 12/01 [facility] Trop Troponin I <0.01 ng/mL 0.00 - 0.05 12/01 NA A Troponin value of 0.06 ng/mL or greater is consistent with myocardial injury. Interpretation requires correlation with other clinical findings.Changin g values are more significant than a single elevated value in the diagnosis of acute ischemic necrosis. [facility] UACSIf UA - Source/Collect Type Urine Clean Cat 12/01 NA Specimen Type/Source obtained by Discern Expert [facility] UAIf UA - Appearance CLER Clear 12/01 NA [facility] UAIf UA - Color YEL 12/01 NA [facility] UAIf UA - pH 7.0 5.0 - 8.0 12/01 [facility] UACSIf UA - Specific [place] 1.011 1.005 - 1.025 12/01 NA [facility] UACSIf UA - Protein NEG mg/dL Negative 12/01 NA [facility] UACSIf UA - Glucose NEG mg/dL Negative 12/01 NA [facility] UACSIf UA - Ketones NEG Negative 12/01 NA [facility] UACSIf UA - Bilirubin NEG Negative 12/01 NA [facility] UACSIf UA - Blood NEG Negative 12/01 NA [facility] UACSIf UA - Urobilinogen <2.0 mg/dL 0.1 - 2.0 12/01 NA [facility] UACSIf UA - Nitrites NEG Negative 12/01 NA [facility] UACSIf UA - Leukocyte Esterase NEG Negative 12/01 NA [facility] UACSIf Urine Culture Y/N No 12/01 NA [facility] UACSIf UA - WBC 0 /HPF 0 - 5 12/01 NA [facility] UACSIf UA - RBC 0 /HPF 0 - 2 12/01 NA [facility] UACSIf UA - Bacteria NONE 12/01 NA [facility] UACSIf UA - Epithelials, Squamous 0 /HPF 12/01 NA [facility] UACSIf UA - Mucus RARE None 12/01 [facility] UDS VANNESSA UR - Amphetamines Scrn NEG Negative 12/01 NA [facility] UDS VANNESSA UR - Barbiturates Scrn NEG Negative 12/01 [facility] UDS VANNESSA UR - Benzodiazepines Scrn NEG Negative 12/01 [facility] UDS VANNESSA UR - Cannabinoids/THC Scrn NEG Negative 12/01 [facility] UDS VANNESSA UR - Cocaine Scrn NEG Negative 12/01 [facility] UDS VANNESSA UR - Methamphetamines Scrn NEG Negative 12/01 [facility] UDS VANNESSA UR - Methadone NEG Negative 12/01 NA [facility] UDS VANNESSA UR - Opiates Scrn NEG Negative 12/01 [facility] UDS VANNESSA UR - Oxycodone NEG Negative 12/01 NA [facility] UDS VANNESSA UR - Phencyclidine Scrn NEG Negative 12/01 NA [facility] UDS VANNESSA UR - Tricyclics Screen NEG Negative 12/01 NA [facility] UDS VANNESSA UR - Footnote See [...] result. Additional charges apply.Performed by Discern Expert. [facility] Diagnostic Reports Report Value Date Source TMJ Bilat TMJs 05/24/20 1617h. HISTORY:Dislocation. . COMPARISON: None. TECHNIQUE: 5 Vws. FINDINGS: Bones intact with unremarkableTMJ with motion. IMPRESSION: Negative TMJs. THANK YOU FOR YOUR REFERRAL Signed by: Anival Cruz on 05/24/2020 4:34 PM 05/24/2020 [facility] Chest 1 Vw EXAMINATION: Chest 1 [...] Lance Fisher on 12/01/2019 7:08 AM 12/01/2019 [facility] Consultation Notes Results Value Date Source [...] This medical document was created using the I AM AT Computerized Dictation System. Although this document has [...] Within 5-7 days, only if needed Address: [address] [place] [address] [facility] [place] [address] [facility] (1) MSEI Information MSEI MD/DONOR SPECIALIST/PA Time Patient Seen face to face: Date [...] Family History no pertinent family history 05/24/2020 [facility] ED Physician Notes Patient: BURTON AGUIRRE [...] PDT) MDM Condition _ Disposition _ 05/24/2020 [facility] ED Physician Notes Patient: BURTON AGUIRRE [...] the chart. Pulse Oximetry:97% on RA Normal [place] Dictation Attestation: This medical document was created using the [employer] AM [employer] Computerized Dictation System. Although this document has been carefully reviewed, there may still be some phonetic and/or typographical errors. These errors are purely grammatical due to imperfections in the software program and should not be construed in any way to compromise the substance of the patient s medical care during the visit Diagnosis and treatment consistent with DONOR SPECIALIST/PA standardized procedures has been complaining of off-and-on [...] Within 2-3 days, only if needed Address: [address] [place] [id number] [facility] (1) MSEI Information MSEI MD/DONOR SPECIALIST/PA Time Patient Seen face to face: Date [...] Clear 11/30/19 20:42 PST UA - Specific [place] 1.011 - 11/30/19 20:42 PST UA - [...] - Mucus Rare 11/30/19 20:42 PST 12/01/2019 [facility] Vital Signs Vital Sign Value Date Comments Source Oxygen delivery Room air (05/24/20 3:53 PM) 05/24/2020 50 [facility] Temperature (F) 98.0 [degF] 05/24/2020 50 [facility] Pulse rate 69 bpm 05/24/2020 50 [facility] Respiratory rate 18 br/min 05/24/2020 50 [facility] Pulse Oximetry 98 % 05/24/2020 50 [facility] Systolic BP 121 mm[Hg] 05/24/2020 50 [facility] Diastolic BP 81 mm[Hg] 05/24/2020 50 [facility] BP site Right arm (05/24/20 3:53 PM) 05/24/2020 50 [facility] Weight (kg) 95.25 kg 05/24/2020 50 [facility] Weight measured method Standing scale (05/24/20 3:53 PM) 05/24/2020 50 [facility] HeightLength (cm) 185.42 cm 05/24/2020 50 [facility] Dose calculation weight (kg) 95.25 kg 05/24/2020 50 [facility] Oxygen delivery Room air (11/30/19 10:57 PM) 12/01/2019 50 [facility] Pulse rate 60 bpm 12/01/2019 50 [facility] Respiratory rate 18 br/min 12/01/2019 50 [facility] Systolic BP 124 mm[Hg] 12/01/2019 50 [facility] Diastolic BP 77 mm[Hg] 12/01/2019 50 [facility] Pulse Oximetry 98 % 12/01/2019 50 [facility] Oxygen delivery Room air (11/30/19 8:38 PM) 12/01/2019 50 [facility] Temperature (F) 97.1 [degF] 12/01/2019 50 [facility] Pulse rate 59 bpm 12/01/2019 50 [facility] Respiratory rate 18 br/min 12/01/2019 50 [facility] Pulse Oximetry 97 % 12/01/2019 50 [facility] Systolic BP 135 mm[Hg] 12/01/2019 50 [facility] Diastolic BP 63 mm[Hg] 12/01/2019 50 [facility] BP site Right arm (11/30/19 8:38 PM) 12/01/2019 50 [facility] Weight (kg) 95.25 kg 12/01/2019 50 [facility] Weight measured method Standing scale (11/30/19 8:38 PM) 12/01/2019 50 [facility] Dose calculation weight (kg) 95.25 kg 12/01/2019 50 [facility] Encounters Location Location Details Encounter Type Encounter Number Reason For Visit Attending Provider ADM Date DC Date Status Source 50 50 [facility] Emergency [id number] CHEST PAIN Jorge Loren 12/01 Active [facility] 50 50 [facility] Emergency [id number] DISLOCATE D JAW Karla Storm 05/24 Active [facility] Social History Social History Date Source Social History TypeResponse Smoking Status Is there a smoker in the household? No; *Do you have concerns about tobacco use in household? No; Never smoker entered on: 10/09/16 10/09/[address] [place] [address] Social History TypeResponse Smoking Status Is there a smoker in the household? No; *Do you have concerns about tobacco use in household? No; Never smoker entered on: 10/09/16 10/09/[address] [place] [address]
--- OUTSIDE RECORDS SUMMARY | 2024-12-10 08:30 | XMS_ITS | Continuity of Care Document ---
Author Name [facility] Organization [facility] Care Team Providers Care Spouter Name Role Phone [facility] Unavailable Unavailable Problems Combined list of problems from Department of [facility] and [facility] facilities. It does not include entries that were removed or entered in error. Problem Status Onset Date Problem Type Date of Resolution Comments Source Pain in left ankle and joints of left foot Active 01/25/20 18 Condition DoD Pain in lower limb Active 01/25/20 [address] [place] [address] [place] Low back pain Active Condition DoD Segmental and somatic dysfunction of lumbar region Active Condition DoD Segmental and somatic dysfunction of thoracic region Active Condition DoD Acquired hallux limitus of left great toe Active Condition [address] [place] [address] Adjustment disorder with mixed anxiety and depressed mood Active Condition [address] [place] [address] Allergic rhinitis Active Condition [facility] [facility] Eustachian tube dysfunction Active Condition [address] [place] [address] Exostosis of left foot Active Condition [address] [place] [address] Pseudofolliculitis barbae Active Condition [address] [place] [address] Segmental and somatic dysfunction Active Condition [address] [place] [address] Tobacco user1 Active Condition Proble m added based off tobacco use documented in social history [address] [place] [address] Toe joint painful on movement Active Condition [address] [place] [address] Medications Combined list of outpatient medications from [facility] and [facility] facilities.Medications provided include 1) outpatient medications [...] Acute, 6/30/20 2:00:00 AM CDT, Route to [facility] Oral (given by mouth) Complet ed 04/21/2020 30.0 0028A-N [facility] [place] albuterol 90 mcg/inh inhalation powder 2 puff(s), Inhale, every 4 hr, PRN as needed, # 1 EA, 0 total refill(s ), Maintena nce Inhala tion (breat he in) Ordered 1.0 0028A-N [facility] [place] ALBUTEROL SULFATE HFA (albuterol sulfate), 90 MCG, [...] total refill(s ), Acute, 11/05/19 9:42:00 PM [facility], [facility] pharmacy dispense (Rx) Oral (given by mouth) Complet ed 11/06/2019 14.0 [facility]28[facility] Claritin 10 mg oral tablet 1 tab(s), Oral, Daily, PRN allergy symptoms , # 90 tab(s), 3 total refill(s ), Maintena nce, Route to [facility] Oral (given by mouth) Ordered 06/02/2020 90.0 0028C -N [facility] [place] Flonase 50 mcg/inh nasal spray 2 spray(s) , Nostril- Both, Daily, # 48 g, 3 total refill(s ), Maintena nce, Route to [facility] Nostri l-Both (into the nose) Ordered 04/02/2020 48.0 0028C -N [facility] [place] hydrOXYzine hydrochlori de 25 mg oral tablet 1 tab(s), Oral, QID, PRN as needed for anxiety, # 40 tab(s), 2 total refill(s ), Acute, 05/25/20 8:12:00 AM CDT, Called to Pharmacy (Rx) Oral (given by mouth) Discont inued 05/25/2020 40.0 0028C-N [facility] [place] ibuprofen 800 mg, Oral, 0 total refill(s ), Maintena nce Oral (given by mouth) Ordered 0028A-N [facility] [place] ibuprofen 400 mg oral tablet TAKE TWO [...] total refill(s ), Acute, 11/03/19 2:00:00 AM [facility], [facility] pharmacy dispense (Rx) Oral (given by mouth) Complet ed 11/03/2019 30.0 0028A-N [facility] [place] Imodium A-D 2 mg oral tablet 1 tab(s), Oral, every 4 hr, PRN loose stool, take 2 tabs now, then 1 tab as needed every 4 hours for loose stool. not to exceed 8 capsules , or 16 mg, in 24 hours, X 1 days, # 8 tab(s), 0 total refill(s ), Acute, 07/05/19 12:27:00 PM CDT, [facility] pharmacy dispense (Rx) Oral (given by mouth) Complet ed 07/05/2019 8.0 0028C-N [facility] [place] loperamide 2 mg oral capsule cap(s), Oral, [...] Acute, 03/26/20 2:00:00 AM CDT, Route to [facility] Oral (given by mouth) Complet ed 03/26/2020 24.0 0028A-N [facility] [place] loratadine- pseudoephed rine 10 mg-240 mg oral tablet, extended release TAKE ONE TABLET BY MOUTH EVERY DAY FOR ALLERGIE S AND CONGESTI ON, Maintena nce Discont inued 08/28/2019 Ambulat ory Pharmac y [place] 5 mg-325 mg oral tablet 1 tab(s), Oral, every 4 hr, PRN pain, # 40 tab(s), 0 total refill(s ), Maintena nce, Called to Pharmacy (Rx) Oral (given by mouth) Ordered 40.[address] [facility] [place] ondansetron 4 mg oral tablet, disintegrat ing [...] total refill(s ), Maintena nce, Route to [facility] Oral (given by mouth) Discont inued 05/25/[address] [facility] [place] oxymetazoli ne 0.05% nasal spray INHALE 2 SPRAYS IN EACH NOSTRIL TWICE A DAY (DISCONT INUE USE AFTER THREE DAYS), Maintena nce Discont inued 08/28/2019 Ambulat ory Pharmac y oxymetazoli ne 0.05% nasal spray 3 spray(s) , Nostril- Both, BID, # 15 mL, 0 total refill(s ), Acute, [facility] pharmacy dispense (Rx) Nostri l-Both (into the nose) Complet ed 11/01/2019 15.0 0028A-N [facility] [place] ProAir HFA 90 mcg/inh inhalation aerosol INHALE 2 PUFFS BY MOUTH EVERY 4-6 HOURS NEEDED FOR WHEEZING , Maintena nce Discont inued 05/25/2020 Ambulat ory Pharmac y Robitussin DM To Go 20 mg-200 mg/10 mL oral liquid 10 mL, Oral, every 4 hr, PRN cough, # 120 mL, 0 total refill(s ), Acute, 11/02/19 2:00:00 AM [facility], [facility] pharmacy dispense (Rx) Oral (given by mouth) Complet ed 11/02/2019 120.0 0028A-N [facility] [place] Tessalon Perles 100 mg oral capsule 1 cap(s), Oral, TID, PRN cough, X 10 days, # 30 cap(s), 0 total refill(s ), Acute, 10/21/19 7:06:00 PM [facility], [facility] pharmacy dispense (Rx) Oral (given by mouth) Complet ed 10/22/2019 30.0 0028A-N [facility] [place] traMADol 50 mg oral tablet TAKE 1 [...] Oral (given by mouth) Ordered 40.0 0028A-N [facility] [place] Zofran ODT 4 mg oral tablet, disintegrat ing 1 tab(s), Oral, every 8 hr, PRN nausea/v omiting, # 10 cap(s), 0 total refill(s ), Maintena nce, Called to Pharmacy (Rx) Oral (given by mouth) Ordered 10.0 0028A-N [facility] [place] Zofran ODT 8 mg oral tablet, disintegrat ing 1 tab(s), Oral, TID, PRN nausea or vomiting , # 10 tab(s), 0 total refill(s ), Acute, 03/26/20 2:00:00 AM CDT, [facility] Oral (given by mouth) Complet ed 03/26/2020 10.0 0028A-N [facility] [place] Zoloft 25 mg oral tablet See Instruct ions, Take 1 tab by mouth daily for 2 weeks. If tolerate d can increase to 2 tabs daily., # 80 tab(s), 0 total refill(s ), Maintena nce, Called to Pharmacy (Rx) Discont inued 05/25/2020 80.0 0028C-N [facility] [place] Zoloft 50 mg oral tablet 1 tab(s), Oral, Daily, # 30 tab(s), 0 total refill(s ), Maintena nce Oral (given by mouth) Ordered 30.0 0028A-N [facility] [place] Allergies, Adverse Reactions, Alerts Combined list of allergies from Department of Defense and Veterans Affairs facilities. It does not include entries that were removed or entered in error. Substance Category Reaction Severity Reaction type Status Date Reported Comments Source Advil Drug allergy Rash [facility] Food allergy Unknown Active [facility] No Known Allergies Drug allergy (disorder) active 12/15/2015 Yovani Griffin [facility] Immunizations Combined list of available immunizations from the Department of Defense and Veterans Affairs facilities. 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 [place] Influenza, injectable, quadrivalent, preservative free 0 2018 [id number] 150 Seqirus (SEQ) complet ed Influenza , injectabl e, quadrival ent, preservat joselyn free DoD tuberculin purified protein derivative 2018 zzLef t Arm [id number] 96 sanofi pasteur complet ed tuberculi n purified protein derivativ e 04/01/19 Given 0028C-N [facility] [place] tuberculin skin test; purified protein derivative solution, intradermal 1 2018 DIEGO PALACIOS [id number] 96 Sanofi Pasteur (PMC) complet ed tuberculi n skin test; purified protein derivativ e solution, intraderm al DoD influenza, injectable, quadrivalent- pf 2017 [id number] 150 Seqirus complet ed influenza , injectabl e, quadrival ent-pf 08/30/18 Given 0028C-N [facility] [place] Influenza, injectable, quadrivalent, preservative free 0 2017 [id number] 150 Seqirus (SEQ) comple t ed Influenza , injectabl e, quadrival ent, preservat joselyn free DoD influenza, injectable, quadrivalent- pf 2016 UNK 150 Seqirus complet ed influenza , injectabl e, quadrival ent-pf 10/06/17 Given 0028C-N [facility] [place] Influenza, injectable, quadrivalent, preservative free 0 2016 [...] injectabl e, quadrival ent-pf 09/07/16 Given 0028C-N [facility] [place] Influenza, injectable, quadrivalent, preservative free 0 2015 UNK 150 Seqirus (SEQ) comple t ed Influenza , injectabl e, quadrival ent, preservat joselyn free [facility] measles and rubella virus vaccine 0 2015 04 () Not Given measles and rubella virus vaccine DoD hepatitis A vaccine, adult dosage 0 2015 52 () Not Given hepatitis A vaccine, adult dosage DoD poliovirus vaccine, inactivated 2015 Vicenta Arm [id number] 10 sanofi pasteur complet ed polioviru s vaccine, inactivat ed 12/21/15 Given 0028C-N [facility] hepatitis B adult vaccine 2015 zPeggy t Arm [id number] 43 GlaxoSmithKli ne complet ed hepatitis B adult vaccine 12/21/15 Given 0028C-N [facility] poliovirus vaccine, inactivated 1 2015 HEIKE WINKLER [id number] 10 Sanofi Pasteur ([facility]) complet ed polioviru s vaccine, inactivat ed DoD hepatitis B vaccine, adult dosage 1 2015 HEIKE WINKLER [id number] 43 [facility] hepatitis B vaccine, adult dosage DoD meningococcal A,C,Y,W-135 (MCV4P) 2015 Santa t Arm [id number] 114 sanofi pasteur complet ed meningoco ccal A,C,Y,W-1 35 (MCV4P) 11/17/15 Given 0028C-N [facility] adenovirus vaccine, live 2015 [id number] 143 Unknown complet ed adenoviru s vaccine, live 11/17/15 Given 0028C-N [facility] tetanus, diphtheria, acellular pertu is 2015 Vicenta Arm [id number] 115 GlaxoSmithKli ne complet ed tetanus, diphtheri a, acellular pertussis 11/17/15 Given 0028C-N [facility] hepatitis B adult vaccine 2015 zPeggy t Arm [id number] 43 GlaxoSmithKli ne complet ed hepatitis B adult vaccine 11/17/15 Given 0028C-N [facility] influenza virus vaccine, live 2015 [id number] [employer] comple t ed influenza virus vaccine, live 11/17/15 Given 0028C-N [facility] hepatitis B vaccine, adult dosage 1 2015 ZACHARY NICE I [id number] 43 [facility] ed hepatitis B vaccine, adult dosage DoD influenza virus vaccine, live, attenuated, for intranasal use 1 2015 MARGARITO TILLMAN [id number] 111 [employer] Inc. (MED) complet ed influenza virus vaccine, live, attenuate d, for intranasa l use DoD meningococcal polysaccharid e (groups A, C, Y and W-135) diphtheria toxoid conjugate vaccine (MCV4P) 1 2015 ZACHARY NICE I [id number] 114 Sanofi Pasteur (PMC) complet ed meningoco ccal polysacch aride (groups A, C, Y and W-135) diphtheri a toxoid conjugate vaccine (MCV4P) DoD tetanus toxoid, reduced diphtheria toxoid, and acellular pertu is vaccine, adsorbed 1 2015 ZACHARY NICE I [id number] [facility] [employer] ([employer]) (SKB) complet ed tetanus toxoid, reduced diphtheri a toxoid, and acellular pertussis vaccine, adsorbed DoD Adenovirus, type 4 and type 7, live, oral 1 2015 ZACHARY NICE I [id number] 6 143 Other (OTH) complet ed Adenoviru s, type 4 and type 7, live, oral DoD Hep A, ped/adol, 3 dose 2007 Body, whole TRANSCR IBED 84 complet ed Hep A, ped/adol, 3 dose 08/06/08 Given 0028C-N [facility] influenza virus vaccine,split 2007 Body, whole TRANSCR IBED 15 complet ed influenza virus vaccine,s plit 08/06/08 Given 0028C-N [facility] influenza virus vaccine, split virus (incl. [...] A, ped/adol, 2 dose 06/10/02 Given 0028C-N [facility] [place] hepatitis A vaccine, pediatric/ado lescent dosage, 2 dose schedule 1 2001 83 Transcribed (TRS) complet ed hepatitis A vaccine, pediatric /adolesce nt dosage, 2 dose schedule DoD hepatitis B pediatric/ado lescent 1998 Body, whole TRANSCR IBED 08 complet ed hepatitis B pediatric /adolesce nt 12/16/98 Given 0028C-N [facility] hepatitis B vaccine, pediatric or pediatric/ado lescent dosage 3 1998 08 Transcribed (TRS) complet ed hepatitis B vaccine, pediatric or pediatric /adolesce nt dosage DoD hepatitis B pediatric/ado lescent 1997 Body, whole TRANSCR IBED 08 complet ed hepatitis B pediatric /adolesce nt 06/16/98 Given 0028C-N [facility] hepatitis B vaccine, pediatric or pediatric/ado lescent dosage 2 1997 08 Transcribed (TRS) complet ed hepatitis B vaccine, pediatric or pediatric /adolesce nt dosage DoD hepatitis B pediatric/ado lescent 1996 Body, whole TRANSCR IBED 08 complet ed hepatitis B pediatric /adolesce nt 05/26/97 Given 0028C-N [facility] hepatitis B vaccine, pediatric or pediatric/ado lescent dosage 1 1996 08 Transcribed (TRS) complet ed hepatitis B vaccine, pediatric or pediatric /adolesce nt dosage DoD tuberculin purified protein derivative 1996 Body, whole TRANSCR IBED 96 complet ed tuberculi n purified protein derivativ e 05/23/97 Given 0028C-N [facility] poliovirus vaccine, inactivated 1996 Body, whole TRANSCR IBED 10 complet ed polioviru s vaccine, inactivat ed 05/23/97 Given 0028C-N [facility] diphtheria/te tanus toxoids/pertu is 1996 Body, whole TRANSCR IBED 01 complet ed diphtheri a/tetanus toxoids/p ertussis 05/23/97 Given 0028C-N [facility] measles/mumps /rubella virus vaccine 1996 Body, whole TRANSCR IBED 03 complet ed measles/m umps/rube lla virus vaccine 05/23/97 Given 0028C-N [facility] diphtheria, tetanus toxoids and pertu is [...] b conjugate (PRP-T) vaccine 01/26/96 Given 0028C-N [facility] diphtheria/te tanus toxoids/pertu is 1995 Body, whole TRANSCR IBED 01 complet ed diphtheri a/tetanus toxoids/p ertussis 01/26/96 Given 0028C-N [facility] poliovirus vaccine, inactivated 1995 Body, whole TRANSCR IBED 10 complet ed polioviru s vaccine, inactivat ed 01/26/96 Given 0028C-N [facility] diphtheria, tetanus toxoids and pertu is [...] b conjugate (PRP-T) vaccine 01/19/94 Given 0028C-N [facility] measles/mumps /rubella virus vaccine 1993 Body, whole TRANSCR IBED 03 complet ed measles/m umps/rube lla virus vaccine 01/19/94 Given 0028C-N [facility] diphtheria/te tanus toxoids/pertu is 1993 Body, whole TRANSCR IBED 01 complet ed diphtheri a/tetanus toxoids/p ertussis 01/19/94 Given 0028C-N [facility] diphtheria, tetanus toxoids and pertu is [...] b conjugate (PRP-T) vaccine 09/08/93 Given 0028C-N [facility] diphtheria/te tanus toxoids/pertu is 1992 Body, whole TRANSCR IBED 01 complet ed diphtheri a/tetanus toxoids/p ertussis 09/08/93 Given 0028C-N [facility] [place] poliovirus vaccine, inactivated 1992 Body, whole TRANSCR IBED 10 complet ed polioviru s vaccine, inactivat ed 09/08/93 Given 0028C-N [facility] diphtheria, tetanus toxoids and pertu is [...] s vaccine, inactivat ed 92 Given 0028C-N [facility] diphtheria/te tanus toxoids/pertu is 1991 Body, whole TRANSCR IBED 01 complet ed diphtheri a/tetanus toxoids/p ertussis 92 Given 0028C-N [facility] [place] haemophilus b conjugate (PRP-T) vaccine 1991 Body, whole TRANSCR IBED 48 complet ed haemophil us b conjugate (PRP-T) vaccine 92 Given 0028C-N [facility] diphtheria, tetanus toxoids and pertu is [...] CLIA/CLIP that meet the requirement s. 0028A-[facility] Molecular Infectiou s Disease Reason for Test? Screenin g (08/26/20 9:10 AM) 08/26 N 0028A-[facility] Molecular Infectiou s Disease Reason for Test? Diagnosi s (07/22/20 9:48 AM) 07/22 N 0028[facility] Molecular Infectiou s Disease SARS-CoV-2 , ALONZO LC Not Detected 07/22 Result Comment: Testing was performed using the Aptima SARS-CoV-2 assay. This nucleic acid amplificati on test was developed and its performance characteris tics determined by [employer]. Nucleic acid amplificati on tests [...] result in this assay. Performed At: 01 [facility] [address] [facility] [address] [place], [place] [id number] Dharmesh Frost MD Ph:[phone] 0028A-[facility] Infectu s Disease Strep A, Rapid Negative (07/22/20 9:11 AM) 07/22 N 00[facility] SARS-CoV-2 , ALONZO LC SEE COMMENT 04/13 Result Comment: NOT DETECTED The laboratory is certified under the Clinical Laboratory Improvement Program (CLIP) and College of [employer]ef[employer] Pathologist s (CAP) as qualified to perform high complexity clinical laboratory testing. These results were generated using the [facility] 2018-Novel Coronavirus (2019-nCoV) Real-time RT-PCR Diagnostic Panel. [...] Emergency Use Authorizati on TESTING PERFORMED AT [facility] [address], [facility] [address] [place] [address] [id number] [place] Infectiou s Disease Treponema pallidum Ab.EPI NON-REAC [...] Public Health (PH) department, notify your local [facility] immediately for proper notificatio n. Performed by: Epidemiolog y Laboratory Service [facility] [address] [place] [phone] [place] [address] [place] Infectiou s Disease Chlamydia Scrn Neg 1 [...] chlamydial and/or gonococcal urogenital disease using the [employer] System. Female urine has been validated by [facility]. A first catch urine specimen is acceptable, but may detect up to 10% fewer infections when compared with vaginal and endocervica l swab specimens. Performance characteris tics for female urine samples were determined by [facility]. The limit of detection for female [...] laboratory and clinical information . 0125A-AM [facility] Infectiou s Disease GC Scrn Neg 3 [...] chlamydial and/or gonococcal urogenital disease using the [employer] System. Female urine has been validated by [facility]. A first catch urine specimen is acceptable, but may detect up to 10% fewer infections when compared with vaginal and endocervica l swab specimens. Performance characteris tics for female urine samples were determined by [facility]. The limit of detection for female [...] laboratory and clinical information . 0125A-AM [facility] Chemistry TSH 1.217 uIU/mL 0.358 - 3.740 02/13 N 0028A-Na [facility] Chemistry T4 Free 0.93 ng/dL 0.76 - 1.46 02/13 N 0028A-Na [facility] Infectiou s Disease HIV-1/O/2. EPI NON-REAC TIVE [...] Prevention' s HIV diagnostic algorithm. Refer to [facility] Lab Guide for additional information : [email or web address] Testing performed by [employer]. Performed by: Epidemiolog y Laboratory Service [facility] [address] [place] [address], [place] [id number] [place] [address] Miscellan eous Sendouts Repository Sample.EPI RECEIVED 02/13 Result Comment: INTERPRETAT ION(S): Performed by: Epidemiolog y Laboratory Service [facility] [address] [place] [phone] [place] [address] Chemistry Testostero ne Serum LC 552 ng/dL 02/13 Result Comment: Adult male reference interval is based on a population of healthy nonobese males (BMI <30) between 19 and 39 years old. Yamini et.al. JCEM 2017,102;11 61-1173. PMID: [id number]. [address] [place] [address] Chemistry Free Testostero ne Direct LC 10.9 pg/mL 02/13 Result Comment: Performed At: 01 [facility] [address] [place] [address] [place], [place] [id number] Dharmesh Frost MD Ph:[phone] Performed At: 02 [facility] [address] [place], [place] [id number] Genaro Grimaldo MD Ph:[phone] [place] [address] Chemistry A/G Ratio 1 02/[address] [place] [address] Chemistry Albumin 4.5 g/dL 3.4 - 5.0 02/[address] [place] [address] Chemistry Alk Phos 73 U/L 30 - 120 02/[address] [place] [address] Chemistry ALT 33 U/L 12 - 78 02/[address] [place] [address] Chemistry AST 17 U/L 15 - 37 02/13 N Interpretiv e Data: PHLEBOTOMY SHOULD OCCUR PRIOR TO ADMINSTRATI ON OF SULFASALAZI NE TO PREVENT FALSELY DECREASED RESULTS. [address] [place] [address] Chemistry Bilirubin Direct 0.16 mg/dL 0.00 - 0.20 02/[address] [place] [address] Chemistry Bilirubin Total 0.6 mg/dL 0.2 - 1.0 02/[address] [place] [address] Chemistry Protein Total 7.9 g/dL 6.4 - 8.2 02/[address] [place] [address] Toxicolog y Phosphatid ylethanol. LC 104 ng/mL [...] Substance Abuse and Mental Health Services Administrat [facility] (2012). The Role of Biomarkers in the Treatment of Alcohol Use Disorders , 2012 Revision. Advisory, Volume 11, Issue 2. This test was developed and its performance characteris tics determined by [employer]. It has not been cleared or approved by the Food and Drug Administrat [facility]. Performed At: 01 [employer] [address] [place] [id number] Shane Martel [facility] Ph:[phone] [place] [address] Infectiou s Disease SARS-CoV-2 , ALONZO LC See comment 01/26 Result Comment: NOT DETECTED The laboratory is certified under the Clinical Laboratory Improvement Program (CLIP) and College of Estef[employer] Pathologist s (CAP) as qualified to perform high complexity clinical laboratory testing. These results were generated using the [facility] 2018-Novel Coronavirus (2018-nCoV) Real-time RT-PCR Diagnostic Panel. [...] treatment or other patient management decisions. The [facility] 2018-Novel Coronavirus (2018-nCoV) Real-time RT-PCR Diagnostic Panel is only for use under the Food and Drug Administrat ion s Emergency Use Authorizati on TESTING PERFORMED AT [facility] HAFSA KIM and ALICJA KIM IRA [facility], [id number] [place] [address] Vital Signs Combined list of inpatient and outpatient Vital Signs from Department of Defense and Veterans Affairs, ranging from 12 months to all on record, depending upon the facility. Vital Sign Value Date Comments Source Systolic Blood Pressure 102 mm[Hg] 07/13/20 20 21:16:[address] [place] [address] Diastolic Blood Pressure 67 mm[Hg] 020 21:16:[address] [place] [address] Mean Arterial Pressure, Calc 79 mm[Hg] 07/13/2020 21:16:[address] [place] [address] Peripheral Pulse Rate 73 bpm 07/13/2020 21:16:[address] [place] [address] Respiratory Rate 14 br/min 07/13/2020 21:16:[address] [place] [address] Temperature Oral 36.7 Rachelle 07/13/2020 21:16:[address] [place] [address] Blood Pressure Manual Automatic 07/13/2020 21:16:00 0028[facility] Temperature Oral 36.5 Rachelle 05/18/2020 22:07:00 0028[facility] [place] Temperature Oral 36.4 Rachelle 04/08/2020 21:32:00 0028[facility] [place] Blood Pressure Manual Automatic 04/08/2020 21:32:00 0028[facility] [place] Temperature Oral 36.7 Rachelle 06/08/2020 21:51:[address] 0028[facility] [place] Blood Pressure Manual Automatic 06/08/2020 21:51:[address] 0028[facility] [place] Temperature Temporal Artery 36.1 Rachelle 08/27/2020 17:04:00 0028[facility] [place] Peripheral Pulse Rate 67 bpm 08/27/2020 17:04:00 0028[facility] Respiratory Rate 14 br/min 08/27/2020 17:04:00 0028[facility] [place] Systolic Blood Pressure 127 mm[Hg] 08/27/20 20 17:04:00 0028[facility] [place] Diastolic Blood Pressure 72 mm[Hg] 020 17:04:00 0028[facility] [place] Mean Arterial Pressure, Calc 90 mm[Hg] 08/27/2020 17:04:00 0028[facility] [place] Cuff Size Medium 08/27/2020 17:04:00 0028[facility] [place] Blood Pressure Location Left arm 08/27/20 20 17:04:00 0028[facility] [place] Blood Pressure Method Automatic 08/27/2020 17:04:00 0028[facility] [place] Systolic Blood Pressure 112 mm[Hg] 07/22/20 20 15:33:00 0028[facility] [place] Diastolic Blood Pressure 75 mm[Hg] 020 15:33:00 0028[facility] [place] Mean Arterial Pressure, Calc 87 mm[Hg] 07/22/2020 15:33:00 0028[facility] [place] Peripheral Pulse Rate 73 bpm 07/22/2020 15:33:00 0028[facility] [place] Respiratory Rate 20 br/min 07/22/2020 15:33:00 0028[facility] [place] Temperature Oral 36.1 Rachelle 07/22/2020 15:33:00 0028[facility] [place] Blood Pressure Manual Automatic 07/22/2020 15:33:00 0028[facility] [place] Temperature Temporal Artery 36.1 Rachelle 08/27/2020 21:16:00 0028[facility] [place] Peripheral Pulse Rate 60 bpm 08/27/2020 21:16:00 0028[facility] [place] Respiratory Rate 16 br/min 08/27/2020 21:16:00 0028[facility] [place] Systolic Blood Pressure 113 mm[Hg] 08/27/20 21:16:00 0028[facility] [place] Diastolic Blood Pressure 78 mm[Hg] 21:16:00 0028[facility] [place] Cuff Size Medium 08/27/2020 21:16:00 0028[facility] [place] Blood Pressure Location Left arm 08/27/20 21:16:00 0028[facility] [place] Blood Pressure Method Automatic 08/27/2020 21:16:00 0028[facility] Mean Arterial Pressure, Calc 90 mm[Hg] 08/27/2020 21:16:00 0028[facility] [place] Systolic Blood Pressure 109 mm[Hg] 09/24/20 17:16:00 0028[facility] [place] Diastolic Blood Pressure 73 mm[Hg] 17:16:00 0028[facility] [place] Mean Arterial Pressure, Calc 85 mm[Hg] 09/24/2020 17:16:00 0028[facility] [place] Peripheral Pulse Rate 73 bpm 09/24/2020 17:16:00 0028[facility] [place] Respiratory Rate 16 br/min 09/24/2020 17:16:00 0028[facility] [place] Temperature Oral 36.4 Rachelle 09/24/2020 17:16:00 0028[facility] [place] Systolic Blood Pressure 116 mm[Hg] 08/31/20 20 18:24:00 0028[facility] [place] Diastolic Blood Pressure 72 mm[Hg] 18:24:00 0028[facility] [place] Mean Arterial Pressure, Calc 87 mm[Hg] 08/31/2020 18:24:00 0028[facility] [place] Peripheral Pulse Rate 58 bpm 08/31/2020 18:24:00 0028[facility] [place] Respiratory Rate 18 br/min 08/31/2020 18:24:00 0028[facility] Temperature Oral 37 Rachelle 08/31/2020 18:24:00 0028[facility] Temperature Tympanic 38.0 Rachelle 04/13/2020 23:40:00 0028[facility] [place] Systolic Blood Pressure 109 mm[Hg] 09/24/20 20 16:59:00 0028[facility] [place] Diastolic Blood Pressure 73 mm[Hg] 16:59:00 0028[facility] [place] Mean Arterial Pressure, Calc 85 mm[Hg] 09/24/2020 16:59:00 0028[facility] [place] Peripheral Pulse Rate 73 bpm 09/24/2020 16:59:00 0028[facility] [place] Respiratory Rate 16 br/min 09/24/2020 16:59:00 0028[facility] Temperature Oral 36.2 Rachelle 09/24/2020 16:59:00 0028[facility] [place] Temperature Temporal 36.5 Rachelle 10/30/2019 03:27:00 0028[facility] [place] Blood Pressure Manual Automatic 10/30/2019 03:27:00 0028[facility] [place] Systolic Blood Pressure 112 mm[Hg] 09/03/20 20 18:18:00 0028[facility] [place] Diastolic Blood Pressure 75 mm[Hg] 020 18:18:00 0028[facility] Mean Arterial Pressure, Calc 87 mm[Hg] 09/03/2020 18:18:00 0028[facility] [place] Peripheral Pulse Rate 70 bpm 09/03/2020 18:18:00 0028[facility] [place] Respiratory Rate 15 br/min 09/03/2020 18:18:00 0028[facility] Temperature Oral 36.5 Rachelle 09/03/2020 18:18:00 0028[facility] [place] BP Site Left arm 09/03/2020 18:18:00 0028[facility] [place] Blood Pressure Manual Automatic 09/03/2020 18:18:00 0028[facility] [place] Systolic Blood Pressure 115 mm[Hg] 09/09/20 20 16:43:00 0028[facility] [place] Diastolic Blood Pressure 75 mm[Hg] 020 16:43:00 0028[facility] [place] Mean Arterial Pressure, Calc 88 mm[Hg] 09/09/2020 16:43:00 0028[facility] [place] Peripheral Pulse Rate 81 bpm 09/09/2020 16:43:00 0028[facility] [place] Respiratory Rate 16 br/min 09/09/2020 16:43:00 0028[facility] [place] Temperature Oral 36.2 Rachelle 09/09/2020 16:43:00 0028[facility] [place] BP Site Left arm 09/09/2020 16:43:00 0028[facility] [place] Blood Pressure Manual Automatic 09/09/2020 16:43:00 0028[facility] [place] Temperature Tympanic 36.6 Rachelle 07/04/2019 16:56:00 0028[facility] [place] Blood Pressure Manual Automatic 07/01/2020 21:32:00 0028[facility] [place] Temperature Temporal 36.5 Rachelle 10/12/2019 01:14:00 0028[facility] [place] Systolic Blood Pressure 119 mm[Hg] 07/29/20 20 20:20:00 0028[facility] [place] Diastolic Blood Pressure 75 mm[Hg] 20:20:00 0028[facility] [place] Mean Arterial Pressure, Calc 90 mm[Hg] 07/29/2020 20:20:00 0028[facility] [place] Peripheral Pulse Rate 86 bpm 07/29/2020 20:20:00 0028[facility] [place] Respiratory Rate 16 br/min 07/29/2020 20:20:00 0028[facility] [place] BP Site Left arm 07/29/2020 20:20:00 0028[facility] [place] Blood Pressure Manual Automatic 07/29/2020 20:20:00 0028[facility] [place] Blood Pressure Manual Automatic 03/19/2020 17:38:00 0028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 Location Location Details Encounter Type Encounter Number Reason For Visit Attending Provider ADM Date DC Date Status Disposition Source [place] [place] OUTPATIENT [id number] Notes Entered by: MEGAN BATES 04 Jul 2014 1437 ------- ------- ------- ------- -- walk in AVIS Shaikh 07/05 Released w/o Limitations [place] [place] OUTPATIENT [id number] knee NANNETTE FRIEDMAN 10/03 Released [place] Limitations [place]) [place] OUTPATIENT [id number] right knee pain JEANETTE CANDELARIA 02/20 [place]ased [place]/o Limitations [place]) [place] [id number] BRIELLE CUELLAR 02/26 [place] Limitations [place] TELE CONSULT [id number] Notes Entered by: CARMEN LLAMAS 26 Feb 2015 1729 ------- ------- ------- ------- -- GC probe follow up KHOA ALFARO 02/27 [facility] [place]lyson briscoe ) [facility] ME([facility] TELE CONSULT [id number] Notes Entered by: Tahmina SKAGGS 26 Mar 2015 1017 ------- ------- ------- ------- -- Chlamyd MÓNICA Tong 03/26 [facility](Op tometry [facility] 1523) OUTPATIENT [id number] LUIZA HOLCOMB 11/16 Released w/o Limitations [facility]( Optomet ry [facility] 1523) [facility](Au diology [facility] 1523) OUTPATIENT [id number] RUSS MARTINEZ 11/16 Released w/o Limitations [facility] [place] [facility]( Audiolo gy [facility] 1523) [facility] Male) OUTPATIENT [id number] HEIKE CHEN 11/18 Released w/o Limitations [facility] [place] [facility]( [facility](Co urage (White) 1116) OUTPATIENT [id number] Notes Entered by: NEHA MENDEZ 26 Nov 2015 0931 ------- ------- ------- ------- -- BHAVIN Krause 11/26 Released w/o Limitations [facility] [place] [facility]( [place] (White) 1007) [facility](Co ur[place] (White) 1007) OUTPATIENT [id number] Notes Entered by: NEHA MENDEZ 08 Dec 2015 0936 ------- ------- ------- ------- -- ZEUS Oliveira 12/08 Released w/o Limitations [facility]( [place] ([place]) 1007) [facility] [place] [facility](Co urage (White) 1007) OUTPATIENT [id number] Notes Entered by: NEHA MENDEZ 15 Dec 201531 ------- ------- ------- ------- -- sorethr oat ZEUS LIU 12/15 Released w/o Limitations [facility]( [place] ([place]) 1007) [facility](Co urage (White) 1007) OUTPATIENT [id number] Notes Entered by: NEHA MENDEZ 18 Dec 2015 0726 ------- ------- ------- ------- -- sore throat LIU ZEUS Reid 12/18 Sick at Home/Quarter s [facility]( [place] (White) 1007) [facility]([place] dPeggy Assessmen t/1523) OUTPATIENT [id number] Notes Entered by: KRISTINE GARZON 21 Dec 2015 0825 ------- ------- ------- ------- -- 5-2 day MORIS Roach Released w/o Limitations [facility]( Med. Assessm ent/152 3) [place]) OUTPATIENT [id number] PFB CRISSY SORIANO 01/13 Released with Work/Duty Limitations [place] [facility] OUT[place] [id number] PFB INOCENCIO SMITH JR 02/01 Released with Work/Duty Limitations [place] [facility]) OUT[place] [id number] IRRITAT ED EYES BLANCA HOLLEY 02/08 [place]ased w/o Limitations [place] Occup[facility]al [facility]) OUTPATIENT [id number] N TESSA SARAH 02/15 Released w/o Limitations [place] [facility] OUTPATIENT [id number] PFB CRISSY SORIANO 03/15 Released with Work/Duty Limitations [place] [facility]) [facility](NI Fam Med PCMH Tm 2) OUTPATIENT [id number] r/o sinus infecti on HOLLIE ESTRADA 05/03 Released w/o Limitations [facility](N I Fam Med PCMH Tm 2) [facility](NI Fam Med PCMH Tm 2) OUTPATIENT [id number] mary tatyana KARIME CHARLY Reid 05/19 Released w/o Limitations [facility](N I Fam Med PCMH Tm 2) [facility](NI Fam Med PCMH Tm 2) OUTPATIENT [id number] Notes Entered by: STEPHENIE GODFREY 30 May 2016 0904 ------- ------- ------- ------- -- NPV NVD TAMMY JENSEN 05/30 Sick at Home/Quarter s [facility](N I Fam Med PCMH Tm 2) [facility] [id number] L ear pain/he adache x 3 days/FR C BRANDAN Carpenter 08/31 [facility] Limitations [facility] [id number] possibl e sinus infecti on x 3 weeks/F NAZ ESPANA 09/20 [facility] Limitations [facility] [id number] f/u [facility] visit - genital dischar ge/[facility] NAZ Espana 10/11 [facility] Limitations [facility] OUTPATIENT [id number] Notes Entered by: MINAL QUINTANILLA 13 Oct 2016 1053 ------- ------- ------- ------- -- audio JORGE L QUINTANILLA 10/13 [place]o Limitations [place] [facility] [id number] still has dicharg e after treatme nt NAZ MARQUEZ 11/17 [place]/o Limitations [place] [facility] [place] OUTPATIENT [id number] Margot castillo x1 wk DANIEL JAIN 12/08 [place]ased w/o Limitations [place] [facility] OUT[facility] [id number] Notes Entered by: MINAL QUINTANILLA 15 Mar 2017 1308 ------- ------- ------- ------- -- audio JORGE L QUINTANILLA 03/15 [place] w/o Limitations [place] [facility] OUT[facility] [id number] Maritza mora/ NICOLE GALLARDO 03/27 [facility] Limitations [facility] TELE CONSULT [id number] Notes Entered by: CHRISTIANO HERNÁNDEZ 27 Mar 2017 1411 ------- ------- ------- ------- -- er follow up NICOLE HERNÁNDEZ 03/27 [place]o Limitations [place] [facility] OUT[facility] [id number] Notes Entered by: MINAL QUINTANILLA 30 Mar 2017 1046 ------- ------- ------- ------- -- audio-f u-bilat JORGE L QUINTANILLA B 03/30 [place] [id number] [facility] e Part-1 MONTELONGOJARED MartinezLOUISA Carias 04/17 [place] Limitations [place] [place] [id number] [phone] NAZ MARQUEZ 04/18 [place] w/o Limitations [facility] [place] [id number] NO mary mora // NICOLE JERNIGAN 04/27 [place] Limitations [place] TELE CONSULT [id number] Notes Entered by: ALONDRA ZHU 23 May 2017 0853 ------- ------- ------- ------- -- ER f/u NICOLE HERNÁNDEZ 05/23 [place] [id number] f/u ER visit-n ot iris /[facility] DANIEL READ 05/24 [place] [id number] Headach es x 2 weeks KISHA KHAN S 07/06 [place] [id number] No NICOLE Monge 08/21 [place]ased w/o Limitations [facility] [place] [id number] No shave chit//f rcw NICOLE HERNÁNDEZ S 10/10 [facility]itations [facility] TELE CONSULT [id number] Notes Entered by: JARED ROJAS 11 Oct 2017 1612 ------- ------- ------- ------- -- [facility] [place] NICOLE HERNÁNDEZ S 10/12 [facility] [id number] ER f/u - [facility] // FRCW DANIEL JIAN 12/15 [facility] [place] [facility] OUT[facility] [id number] R knee pain/FR C DANIEL READ 12/18 [facility] [place] Limitations [facility] OUT[facility]IENT [id number] f/u L ankle pain/FR C DANIEL READ 01/02 [facility] [place] Limitations [facility] [id number] Pain in left ankle and joints of left foot TESSA RIBERA 01/11 [facility] [id number] FLU S/S CRISSY JAQUEZ 01/17 [facility] OUTPATIENT [id number] left ankle pain JOSE RAMON NOLASCO 01/24 [facility] Limitations [facility] OUT[facility] [id number] CORPORANAR UMANG HUNTER 01/30 [facility] Limitations [facility] OUT[facility] [id number] CORPORANAR UMANG HUNTER 02/01 [facility] Limitations [facility] [id number] ANDRE MARX 02/08 [facility] Limitations [facility] [id number] f/u MRI Results - L ankle and L knee/FR C DANIEL Read 02/13 [facility]ased [place] Limitations [facility] [id number] [facility]/FR DANIEL DELEON 02/14 [facility] [place] Limitations [facility] OUT[facility] [id number] Notes Entered by: MINAL QUINTANILLA 12 Apr 2018 0937 ------- ------- ------- ------- -- audio JORGE L QUINTANILLA 04/12 [facility] Limitations [facility] [id number] PHA/ FRKIP KLEIN 06/28 [facility] [id number] Pain in left ankle and joints of left foot LIONEL LOCKETT 08/10 [facility]ased with Work/Duty Limitations [facility] [id number] N/V/D 3 days AARON PERSON 08/14 [facility] [id number] L Ankle pain BRETT LUIS 08/20 [place] [place] [facility] [place] [id number] 1 [facility] [place] [id number] LESLIE GOODWIN 08/31 [place] Limitations [place] [place] [id number] ANDRE MARX [facility] 09/04 Released w/o Limitations [place] [facility] [place] [id number] LESLIE GOODWIN 09/06 [place] Limitations [place] [place] OUTPATIENT [id number] ANDRE MARX [facility] 09/10 [place] [place] TELE CONSULT [id number] Notes Entered by: LACY CORLEY RES 19 Sep 2018 0913 ------- ------- ------- ------- -- med refill YONG ALVARADO 09/19 [place] [facility] [place] OUTPATIENT [id number] F/U left ankle pain LIONEL LOCKETT 09/21 [place] [place] [facility] [place] [place] [id number] Med Refill/ [facility] VADIM BOYKIN 09/21 [place] OUTPAT[place] [id number] severe ear pain and sinus trouble s EBER VU 10/09 [place] [facility] [id number] Sinus 1 wk ODIN YARI VADIM 10/12 [facility] OUT[facility] [id number] REE/dif ficulty at night/m igraine s [facility] LIONEL BUENO 10/17 [place] [facility] [id number] L foot injury 4 days CRISSY JAQUEZ 11/06 [facility]ased with Work/Duty Lim[facility] TELE CONSULT [id number] Notes Entered by: JOLEEN BIRMINGHAM 09 Nov 2018 0814 ------- ------- ------- ------- -- Network Results VADIM CALLES 11/09 [facility] [id number] Asthma Concern s X2days LINOAnnyYARI VADIM 11/29 [facility]ased with [facility]/D[facility] [id number] Vomitin g today NICOLE HERNÁNDEZ S 12/14 [facility] [id number] NVD x 1 day/[facility] VADIM CALLES 12/14 [facility] [place] [id number] Vomitin g/Diarr hea 24 hrs FLORIAN DALY 12/28 [facility] [place] Limitations [facility] [id number] sore throat KIP MENDEZ R 03/06 [facility]itations [facility] [place] OUTPATIENT [id number] Notes Entered by: MINAL QUINTANILLA 27 Mar 2019 1203 ------- ------- ------- ------- -- audio JORGE L QUINTANILLA 03/27 [place]ased w/o Limitations [place] [facility] [place] TELE CONSULT [id number] Notes Entered by: Eros STEVENSON 29 Mar 2019 1143 ------- ------- ------- ------- -- closed consult EBER VU 03/29 [place] [facility] [place] OUTPATIENT [id number] Notes Entered by: KAYLAN PALACIOS 01 Apr 2019 1348 ------- ------- ------- ------- -- PPD DIEGO PALACIOS 04/01 Released w/o Limitations [facility]) [facility] [place]([facility]) OUTPATIENT [id number] uncontr ollable bowel movemen ts KIP MENDEZ R 04/11 [place]ased w/o Limitations [place] [facility]IENT [id number] NEW PATIENT L ANKLE/L OWER BACK DUGLAS CORDERO S 04/17 [place] Limitations [place] [facility] OUTPATIENT [id number] F/U LOWER BACK JAVEDNENITADUGLAS S 05/06 Released w/o Limitations [facility] [place] [place] TELE CONSULT [id number] Notes Entered by: CHONG SHORE 09 May 2019 0946 ------- ------- ------- ------- -- NO DUGLAS Ramírez 05/09 [place] [id number] trouble sleepin KIP Navarrete 05/27 [place] Limitations [place] [id number] NO MARY MORA/ LIONEL LAINEZ 05/29 [place] Limitations [place] OUTPATIENT [id number] dizzy, light headed JONI AGUIRRE 06/07 [place] Limitations [place]IENT [id number] Notes Entered by: RONALDO GLASER 01 Jan 2020 1038 ------- ------- ------- ------- -- cold like CHINTAN Alcocer A 12/31 Sick at Home/Quarter s [facility] [place]([facility] [place] OUTPATIENT [id number] Notes Entered by: BEATRICE MOYER 07 Jan 2020 0829 ------- ------- ------- ------- -- POSSIBL E ALLERGI CHINTAN MARADIAGA A 01/06 [place]ick at Home/[place] Procedures Combined list of: 1) Procedures from Department of Veterans Affairs facilities going back up to thelast 18 months, not all VA non-surgical procedures are included; 2) All procedures from the Department of Defense facilities. Procedure Procedure Type Code Date Perfomer Comments Sour e Patient education, not otherwise cla ified, non-physician provider, individual, per se ion 2017 JORGE L QUINTANILLA [facility] Threshold Audiogram (Pure Tone) Automated Threshold Audiogram (Pure Tone) Automated 0208T 2017 JORGE L QUINTANILLA [facility] Modalities Cryotherapy Cold Packs Modalities Cryotherapy Cold Packs 64849 2017 FRANCISCO JANDRE [facility] Physical Medicine - Group Physical Therapy Se ion Physical Medicine - Group Physical Therapy Session [address] [facility] Physical Therapy: ___ Se ion Segments, 15 Minutes Each Physical Therapy: ___ Session Segments, 15 Minutes Each [address] [facility] [place] Modalities Cryotherapy Cold Packs Modalities Cryotherapy Cold Packs [address] [facility] Physical Medicine - Group Physical Therapy Se ion Physical Medicine - Group Physical Therapy Session [address] [facility] Physical Therapy: ___ Se ion Segments, 15 Minutes Each Physical Therapy: ___ Session Segments, 15 Minutes Each [address] [facility] Physical Therapy Mobilization Joint Physical Therapy Mobilization Joint [address] [facility] Physical Therapy: ___ Se ion Segments, 15 Minutes Each Physical Therapy: ___ Session Segments, 15 Minutes Each 20869 2017 JOSE RAMON NOLASCO [facility] Physical Therapy Service Evaluation Low Complexity Physical Therapy Service Evaluation Low Complexity 24951 2017 JOSE RAMON NOLASCO [facility] Patient education, not otherwise cla ified, non-physician provider, individual, per se ion 2016 JORGE L QUINTANILLA [facility] Threshold Audiogram (Pure Tone) Automated Threshold Audiogram (Pure Tone) Automated 0208T 2016 JORGE L QUINTANILLA [facility] Patient education, not otherwise cla ified, non-physician provider, individual, per se ion 2016 JORGE L QUINTANILLA [facility] Threshold Audiogram (Pure Tone) Automated Threshold Audiogram (Pure Tone) Automated 0208T 2016 JORGE L QUINTANILLA Ankle orthosis, ankle gauntlet or similar, with or without joints, prefabricated, [id number] 2016 DANIEL JAIN Threshold Audiogram (Pure Tone) Threshold Audiogram (Pure Tone) 35356 2015 JORGE L QUINTANILLA Patient education, not otherwise cla ified, non-physician provider, individual, per se ion 2015 TESSA SARAH Screening Test Of Visual Acuity, Quantitative, Bilateral Screening Test Of Visual Acuity, Quantitative, Bilateral 33294 2015 TESSA SARAH Patient education, not otherwise cla ified, non-physician provider, group, per se ion 2015 ZACHARY NICE I [facility] Vaccines Adenovirus Type 7 Live, For Oral Use Vaccines Adenovirus Type 7 Live, For Oral Use 38745 2015 ZACHARY NICE I [facility] Immunization Admin Intranasal / Oral Each Additional Vaccine Immunization Admin Intranasal / Oral Each Additional Vaccine 96035 2015 ZACHARY NICE I [facility] Vaccines Adenovirus Type 4 Live, For Oral Use Vaccines Adenovirus Type 4 Live, For Oral Use 94543 2015 ZACHARY NICE I [facility] Hepatitis B Vaccine (Active) Adult Dosage Hepatitis B Vaccine (Active) Adult Dosage 09455 2015 ZACHARY NCIE I Hep B - Adult; Series #: 1; 1.0 mL; IM; Left Arm; Mfg: NuScale Power; Lot: [id number]; VIS given (Janeth: 11/24/11). [facility] Meningococcal (A, C, Y, W-135) Oligosacch Diphtheria Toxoid Conj Vacc 2015 ZACHARY NICE I Meningococcal MCV4P; Series #: 1; .5 mL; IM; Left Arm; QuesComg: Sanofi Pasteur; Lot: [id number]; VIS given (Janeth: 08/05/11). [facility] Tdap Vaccine Tdap Vaccine 28099 2015 ZACHARY NICE I Tdap; Series #: 1; .5 mL; IM; Right Arm; Mfg: NuScale Power; Lot: [id number]; VIS given (Janeth: 12/16/14). [facility] Immunization Administration By Injection, One Vaccine Immunization Administration By Injection, One Vaccine 08535 2015 ARLETZACHARY JACKSON Alan [facility] Immunization Administration By Injection, Each Additional Vaccine Immunization Administration By Injection, Each Additional Vaccine 54003 2015 ZACHARY NICE I [facility] Audiometry Group Testing Audiometry Group Testing 89990 2015 SPENSER RUSS [facility] Threshold Audiogram (Pure Tone) Threshold Audiogram (Pure Tone) 18527 2015 MUUSRUSS [facility] Visual Function Screening Visual Function Screening 38571 2015 LUIZA HOLCOMB [facility] Skin Test Anergy Tuberculin Intradermal Skin Test Anergy Tuberculin Intradermal 79768 2013 AVIS ARREDONDO Verified patient with two [...] for any adverse reactions. Smiley Ocampo LPN [facility] Preventive Medicine Administration Of Health Risk Questionnaire Patient-Focused Preventive Medicine Administration Of Health Risk Questionnaire Patient-Focused 64674 KIP MENDEZ [facility] Corticosteroids Injection Intraarticular Left Ankle Corticosteroids Injection [...] 0cc. Pre-injection pain 5/10, post-injection pain 5/10. [facility] Physical Therapy Service Evaluation Moderate Complexity Physical Therapy Service Evaluation Moderate Complexity 10708 BRETT LUIS [facility] Physical Therapy: ___ Se ion Segments, 15 Minutes Each Physical Therapy: ___ Session Segments, 15 Minutes Each 67263 CHRISTA, LESLIE ANGIE [facility] Physical Therapy Mobilization Joint Physical Therapy Mobilization Joint 73297 CHRISTALESLIE Cooney [facility] Modalities Cryotherapy Cold Packs Modalities Cryotherapy Cold Packs 75856 LESLIE GOODWIN [facility] Physical Medicine - Group Physical Therapy Se ion Physical Medicine - Group Physical Therapy Session 16517 ANDRE MARX [facility] Modalities Heat Hot Packs Modalities Heat Hot Packs 56756 LESLIE GOODWIN [facility] Ophthalmological New Patient Start Comprehensive Care Ophthalmological New Patient Start Comprehensive Care 70432 AYLA BUENO [facility] Determination Of Refractive State Determination Of Refractive State 21592 AYLA BUENO [facility] Threshold Audiogram (Pure Tone) Automated Threshold Audiogram (Pure Tone) Automated 0208T JORGE L QUINTANILLA [facility] Patient education, not otherwise cla ified, non-physician provider, individual, per se ion JORGE L QUINTANILLA Skin Test Anergy Tuberculin Intradermal Skin Test Anergy Tuberculin Intradermal 94673 DIEGO PALACIOS IPPD; Series #: 1; 0.1 mL; ID; Left Arm; Mfg: Sanofi Pasteur; Lot: [id number]. [facility] Chiropractic Manip Treatmt (CMT) Spinal One To Two Regions Chiropractic Manip Treatmt (CMT) Spinal One To Two Regions 77749 [facility] A isted Exercises For ROM Assisted Exercises For ROM [address]194 [facility] Chiropractic Manip Treatmt (CMT) Extraspinal One Or More Reg Chiropractic Manip Treatmt (CMT) Extraspinal One Or More Reg [address] [facility] Psychotherapy For Crisis Intervention First 60 Minutes Psychotherapy For Crisis Intervention First 60 Minutes 52783 JEREMI TURNER [facility] Psychiatric Diagnostic Evaluation With Medical Evaluation And Management Psychiatric Diagnostic Evaluation With Medical Evaluation And Management 42489 CHARLY BALES [facility] PSYCHIATRIC DIAGNOSTIC EVALUATION 2018 [facility] CHIROPRACTIC MANIPULATIVE TREATMENT (CMT); EXTRASPINAL, 1 OR MORE REGIONS 2018 [facility] APPLICATION OF A MODALITY TO 1 OR MORE AREAS; HOT OR COLD PACKS 2018 [facility] SKIN TEST; TUBERCULOSIS, INTRADERMAL 2018 [facility] PURE TONE AUDIOMETRY (THRESHOLD), AUTOMATED; AIR ONLY 2018 [facility] INFECTIOUS AGENT ANTIGEN DETECTION BY IMMUNOASSAY WITH DIRECT OPTICAL (IE, VISUAL) OBSERVATION; STREPTOCOCCUS, GROUP A 2018 [facility] DETERMINATION OF REFRACTIVE STATE 2017 [facility] THERAPEUTIC [...] MAKING OF MOD COMPLEX,TYP,30 MIN ARE SPENT [id number] W THE PATIENT &/FAMILY 2017 [facility] ARTHROCENTESIS, [...] OF LOW COMPLEXITY,TYPICAL LY,20 MIN ARE SPENT [id number] W THE PATIENT &/FAMILY 2017 [facility] PATIENT EDUCATION, NOT OTHERWISE CLASSIFIED, NON-PHYSICIAN PROVIDER, INDIVIDUAL, PER SESSION 2016 [facility] PATIENT EDUCATION, NOT OTHERWISE CLASSIFIED, NON-PHYSICIAN PROVIDER, INDIVIDUAL, PER SESSION 2016 [facility] ANKLE ORTHOSIS, ANKLE GAUNTLET OR SIMILAR, WITH OR WITHOUT JOINTS, PREFABRICATED, [id number] 2016 [facility] PURE TONE AUDIOMETRY (THRESHOLD); AIR ONLY 2015 [facility] POLIOVIRUS VACCINE, INACTIVATED (IPV), FOR SUBCUTANEOUS OR INTRAMUSCULAR USE 2015 [facility] PATIENT EDUCATION, NOT OTHERWISE CLASSIFIED, NON-PHYSICIAN PROVIDER, GROUP, PER SESSION 2015 [facility] VIS FUNCT SCREEN,AUTOMAT/EDILBERTO I-AUTOMAT BILAT QUANT DETERM VISUAL ACUITY,OCULAR ALIGN,COLOR VISION,PSEUDOISOCH ROMAT PLATES,& FIELD VIS (MAY INC ALL/SOME SCRN DETERM FOR CONTRAST SENSITIV,VIS UND GLARE) 2015 [facility] PURE TONE AUDIOMETRY (THRESHOLD); AIR ONLY 2015 [facility] PATIENT EDUCATION, NOT OTHERWISE CLASSIFIED, NON-PHYSICIAN PROVIDER, INDIVIDUAL, PER SESSION 2015 [facility] INJECTION, CEFTRIAXONE SODIUM, PER 250 MG 2014 [facility] SKIN TEST; TUBERCULOSIS, INTRADERMAL 2013 [facility] PSYCHIATRIC DIAGNOSTIC EVALUATION WITH MEDICAL SERVICES 2019 [facility] Repair Hallux Rigidus (Left, Foot) 2019 auto-populated from documented surgical case 0028A-[facility] Social History Combined list of available smoking, tobacco, and other social history from Department of Defense and Veterans Affairs facilities. Social History Type Response Date Comment Sourc e Smoking Status Former smoker, quit more than 30 days ago 09/24/2020 0028-[facility] Male 05/23/2019 0028-[facility] This section is an empty social history section. [facility] Smoking Status Smokeless tobacco us er within last 30 days 0028C-[facility] Sexual Orientation 0028- [facility] Gender identity 0028-[facility] Assessment and Plan Combined list of [...] [place] [address] 2. T oe joint painful on movement Ordered: Postop [place] [address] Extracted from:Title: Office Clinic Note Author: CARLA [...] [place] [address] 2. E xostosis of left foot Ordered: [place] [address] 3. T oe joint painful on movement Ordered: Post[place] [address] Extracted from:Title: Office Clinic Note Author: CARLA MEEK Date: 09/03/20 1. A cquired hallux limitus of left great toe Ordered: Post[place] [address] 2. T oe joint painful on movement [...] convalescent extended for a n extra w [place] to 10 days. Ordered: Post[place] [address] Extracted from:Title: Sep Phys/PHA Author: JP MONTELONGO Date: 08/31/20 1. E XAM, OCCUPATIONAL, LONGTERM OR SEPARATION FROM UNIFORMED SERVICE, LONG F it for separation. F/u PRN - Pt advised on how to inquire about missing network pulmonology and sleep study results Ordered: Administration,Pt-Foc [facility] 68680 Periodic Comp Preventive Med 18 to 39 years Est 44974 Pure Tone Audiometry Air Only 50658 Screening Test Visual Acuity Quantitative Bilat 21351 2. E XAM/ASSESSMENT, OCCUPATIONAL, [employer] PERIODIC HEALTH ASSESSMENT (PHA) Periodic Health Assessment (PHA) Complete. N o acute or chronic medical complaints or conditions identified. M alexus instructed to RTC in 1 year for annual PHA. Ordered: Administration,Pt-[facility] 98067 Periodic Comp Preventive Med 18 to 39 years Est 25987 Pure Tone Audiometry Air Only 25565 Screening Test Visual Acuity Quantitative Bilat 38566 Extracted from:Title: Office Clinic Note Author: CARLA [...] procedure Ordered: Office Visit Level 4 Est 35285 2. E xostosis of left foot Ordered: Office Visit Level 4 Est 92081 3. T oe joint painful on movement Ordered: Office Visit Level 4 Est 52072 Extracted from:Title: URI - PUI post nasal drip Author: CARLOS CASAS Date: 07/22/20 Sore throat R apid strep negative today. Suspected coronavirus infection Has meds with refills on hand, PUI status [id number] or as otherwise directed. Covid-19 results pending. [...] PRN Ordered: Office Visit Level 3 Est 29802 Extracted from:Title: Office Clinic Note Author: HEIKE [...] E xostosis of left foot Extracted from:Title: [facility] - Pain in left foot Author: [...] AO for... Office Visit Level 4 Est 75406 Noel Anderson MD, MPH Extracted from:Title: [facility] - Snoring +AR+ETD Author: NOEL ANDERSON [...] concern. Ordered: Office Visit Level 4 Est 44908 2. A llergic rhinitis Ordered: Office Visit Level 4 Est 25526 3. E ustachian tube dysfunction Ordered: Office Visit Level 4 Est 13375 Noel Anderson MD, MPH Extracted from:Title: Office [...] have germs that can be spread by: Izor-er-mysr (direct) contact. Touching items around you that [...] with soap and water or use hand re examiner before entering the room. Put on a gown and gloves before entering the room. As you leave the room: Take off your gown and then your gloves. Leave them in the room as told. Wash your hands with soap and water or use hand re examiner. Document Released: 11/11/2011 Document Revised: 02/03/2014 Document Reviewed: 11/11/2011 [facility] Patient Information 2 015 payByMobile. This information is not intended to replace [...] PE and testing. Pt VUAB. Ordered: Administration,Pt-Foc [facility] 05026 Brief Comm Tech-Based Svc, Virt, Phys, Est Pt; 5-10 Min Med Dis G2012 Unlisted Evaluation and Management Service 96696 Extracted from:Title: Office Clinic Note-pharyngitis Author: NATHALY FORREST Date: 04/08/20 1. P haryngitis S ore throat x 3 hours. Pt has not been identified as a close contact. Pt instructed to ROM for 48 if he develops any symptoms then he is to RTC for retesting. Pt is to follow up as needed. Ordered: Office Visit Level 3 Est 24222 Extracted from:Title: Ambulatory Patient Education Author: NATHALY [...] 03/27/2009 Document Revised: 07/30/2014 Document Reviewed: 06/16/2014 [facility] Patient Information 2 015 payByMobile. This information is not intended to replace [...] FOODS ARE RECOMMENDED? Grains White rice. White, Arabic, or jane breads (fresh or toasted), including [...] than 2 g of fiber per serving. Fowler tortillas or taco shells. Cooked or dry oatmeal. Granola. Popcorn. Vegetables Raw vegetables. Cabbage, broccoli, Rogers sprouts, artichokes, baked beans, beet greens, corn, kale, legumes, peas, sweet potatoes, and yams. Potato skins. Cooked spinach and cabbage. Fruits Dried fruit, including raisins and dates. Raw fruits. Stewed or dried prunes. Fresh apples with skin, apricots, mangoes, pears, raspberries, and strawberries. Meat and Other Protein Products [place] peanut butter. Nuts and seeds. Beans and [...] or sugar alcohols. Other Coconut. Hot sauce. Yoder powder. Mayonnaise. Gravy. Cream-based or milk-based soups. [...] Reviewed: 09/01/2014 [facility] Patient Information 2 015 payByMobile. This information is not intended to replace advice given to you by your health care provider. Make sure you discuss any questions you have with your health care provider. Extracted from:Title: [facility] [place] Author: YARI NEWBY Date: 03/19/20 1. [...] [facility] [No refills remaining] Extracted from:Title: [facility] - ETD + Seasonal Allergy Author: NOEL ANDERSON TSCHAMPL Date: 03/03/20 1. E ustachian tube dysfunction Pt 29 yo m AD USN w/ hx of seasonal allergy w/ ETD and b/l inferior turbinates edematous w/ MPS I more consistent w/ sinus obstruction for his snoring. Plan for a month trial of daily treatment followed by re-evaluation. Ordered: Office Visit Level 4 Est 94598 2. S easonal allergy Noel Anderson MD, MPH Extracted from:Title: [facility] [place] - URI, sinusitis Author: LEONID CRISSY CLAUDIA Date: 10/29/19 1. U pper respiratory infection 2. S inusitis t he treatment plan was explained to the patient. He should use his medication as directed. He will be given 24 hours SIQ. Orders: amoxicillin-clavulanate, amoxicillin (as trihydrate) 1 tab(s), Oral, every 12 hr, X 7 days, # 14 tab(s), 0 total refill(s), Acute, 11/05/2019, [facility] pharmacy dispense (Rx) [Not filled] dextromethorphan-guaifenesin, 10 mL, Oral, every 4 hr, PRN cough, # 120 mL, 0 total refill(s), Acute, 11/02/2019, [facility] pharmacy dispense (Rx) ibuprofen, 1 tab(s), Oral, every 8 hr, # 30 tab(s), 0 total refill(s), Acute, 11/03/2019, [facility] pharmacy dispense (Rx) [Not filled] oxymetazoline nasal, 3 spray(s), Nostril-Both, BID, # 15 mL, 0 total refill(s), Acute, [facility] pharmacy dispense (Rx) [Not filled] Office Visit Level 3 Est 71955 Extracted from:Title: Ambulatory Patient Education Author: NATHALY [...] 04/04/2002 Document Revised: 06/12/2015 Document Reviewed: 01/14/2015 [employer] Patient Information 2 015 payByMobile. This information is not intended to replace advice given to you by your health care provider. Make sure you discuss any questions you have with your health care provider. Extracted from:Title: [facility] Therapist OP Initial Visit Note Author: YASHIRA MAGALLON Date: 07/18/19 1. 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 Yashira Magallon, Clinical Psychologist at [phone] Yashira Magallon, PhD Clinical Psychologist [facility] Briseyda Extracted from:Title: Ambulatory Patient Education Author: [...] with coughing. HOME CARE INSTRUCTIONS Only take affl-plw-evmgeov or prescription medicines for pain, discomfort, diarrhea, [...] 07/19/2006 Document Revised: 12/31/2012 Document Reviewed: 02/13/2012 [facility] Patient Information 2 015 payByMobile. This information is not intended to replace [...] 10/09/2006 Document Revised: 12/31/2012 Document Reviewed: 03/07/2012 [facility] Patient Information 2 015 payByMobile. This information is not intended to replace [...] 10/09/2006 Document Revised: 12/31/2012 Document Reviewed: 03/07/2012 [facility] Patient Information 2 015 payByMobile. This information is not intended to replace [...] with coughing. HOME CARE INSTRUCTIONS Only take xmnr-qom-xpemsdx or prescription medicines for pain, discomfort, diarrhea, [...] 07/19/2006 Document Revised: 12/31/2012 Document Reviewed: 02/13/2012 [facility] Patient Information 2 015 payByMobile. This information is not intended to replace advice given to you by your health care provider. Make sure you discuss any questions you have with your health care provider. 12/10/[address] [place] [address] Assessment and Plan Extracted from:Title : Office [...] [place] [address] 2. T oe joint painful on movement Ordered: Postop [place] [address] Extracted from:Title: Office Clinic Note Author: CARLA [...] [place] [address] 2. E xostosis of left foot Ordered: Post[place] [address] 3. T oe joint painful on movement Ordered: Postop [place] [address] Extracted from:Title: Office Clinic Note Author: CARLA MEEK Date: 09/03/20 1. A cquired hallux limitus of left great toe Ordered: Postop [place] [address] 2. T oe joint painful on movement [...] convalescent extended for a n extra w [place] to 10 days. Ordered: Postop [place] [address] Extracted from:Title: Sep Phys/PHA Author: JP MONTELONGO Date: 08/31/20 1. E XAM, OCCUPATIONAL, LONGTERM OR SEPARATION FROM [employer] SERVICE, LONG F it for separation. F/u PRN - Pt advised on how to inquire about missing network pulmonology and sleep study results Ordered: Administration,[facility] Periodic Comp Preventive Med 18 to 39 years Est 89098 Pure Tone Audiometry Air Only 74828 Screening Test Visual Acuity Quantitative Bilat 53690 2. E XAM/ASSESSMENT, OCCUPATIONAL, [employer] PERIODIC HEALTH ASSESSMENT (PHA) Periodic Health Assessment (PHA) Complete. N o acute or chronic medical complaints or conditions identified. Eros vaughan instructed to RTC in 1 year for annual PHA. Ordered: Administration,Pt-Foc [facility] 08105 Periodic Comp Preventive Med 18 to 39 years Est 67970 Pure Tone Audiometry Air Only 67794 Screening Test Visual Acuity Quantitative Bilat 82385 Extracted from:Title: Office Clinic Note Author: CARLA [...] procedure Ordered: Office Visit Level 4 Est 51375 2. E xostosis of left foot Ordered: Office Visit Level 4 Est 00581 3. T oe joint painful on movement Ordered: Office Visit Level 4 Est 00311 Extracted from:Title: URI - PUI post nasal drip Author: CARLOS CASAS Date: 07/22/20 Sore throat R apid strep negative today. Suspected coronavirus infection Has meds with refills on hand, PUI status [id number] or as otherwise directed. Covid-19 results pending. [...] PRN Ordered: Office Visit Level 3 Est 96648 Extracted from:Title: Office Clinic Note Author: HEIKE [...] AO for... Office Visit Level 4 Est 14368 Noel Anderson MD, MPH Extracted from:Title: [facility] - Snoring +AR+ETD Author: NOEL ANDERSON [...] concern. Ordered: Office Visit Level 4 Est 23862 2. A llergic rhinitis Ordered: Office Visit Level 4 Est 25876 3. E ustachian tube dysfunction Ordered: Office Visit Level 4 Est 46733 Noel Anderson MD, MPH Extracted from:Title: Office [...] have germs that can be spread by: Qffw-xo-gibj (direct) contact. Touching items around you that [...] with soap and water or use hand re examiner before entering the room. Put on a gown and gloves before entering the room. As you leave the room: Take off your gown and then your gloves. Leave them in the room as told. Wash your hands with soap and water or use hand re examiner. Document Released: 11/11/2011 Document Revised: 02/03/2014 Document Reviewed: 11/11/2011 ExitCare Patient Information 2 015 payByMobile. This information is not intended to replace [...] for PE and testing. Pt VUAB. Ordered: Administration,[facility] [address] Brief Comm Tech-Based Svc, Virt, Phys, Est Pt; 5-10 Min Med Dis G2012 Unlisted Evaluation and Management Service 77785 Extracted from:Title: Office Clinic Note-pharyngitis Author: NATHALY FORREST Date: 04/08/20 1. P haryngitis S ore throat x 3 hours. Pt has not been identified as a close contact. Pt instructed to ROM for 48 if he develops any symptoms then he is to RTC for retesting. Pt is to follow up as needed. Ordered: Office Visit Level 3 Est 89816 Extracted from:Title: Ambulatory Patient Education Author: NATHALY [...] Reviewed: 06/16/2014 ExitCare Patient Information 2 015 payByMobile. This information is not intended to replace [...] FOODS ARE RECOMMENDED? Grains White rice. White, Arabic, or jane breads (fresh or toasted), including plain rolls, buns, or bagels. White pasta. Saltine, soda, or fidencio crackers. Pretzels. Low-fiber cereal. Cooked cereals made with water (such as cornmeal, farina, or cream cereals). Plain muffins. Matzo. [place] toast. Zwieback. Vegetables Potatoes (without the skin). [...] than 2 g of fiber per serving. [place] tortillas or taco shells. Cooked or dry oatmeal. Granola. Popcorn. Vegetables Raw vegetables. Cabbage, broccoli, [place] sprouts, artichokes, baked beans, beet greens, corn, kale, legumes, peas, sweet potatoes, and yams. Potato skins. Cooked spinach and cabbage. Fruits Dried fruit, including raisins and dates. Raw fruits. Stewed or dried prunes. Fresh apples with skin, apricots, mangoes, pears, raspberries, and strawberries. Meat and Other Protein Products [place] peanut butter. Nuts and seeds. Beans and [...] or sugar alcohols. Other Coconut. Hot sauce. [place] powder. Mayonnaise. Gravy. Cream-based or milk-based soups. [...] Reviewed: 09/01/2014 ExitCare Patient Information 2 015 payByMobile. This information is not intended to replace advice given to you by your health care provider. Make sure you discuss any questions you have with your health care provider. Extracted from:Title: [facility] Author: YARI NEWBY Date: 03/19/20 1. [...] [facility] [No refills remaining] Extracted from:Title: [facility] - ETD + Seasonal Allergy Author: NOEL ANDERSONPL Date: 03/03/20 1. E ustachian tube dysfunction Pt 29 yo m AD USN w/ hx of seasonal allergy w/ ETD and b/l inferior turbinates edematous w/ MPS I more consistent w/ sinus obstruction for his snoring. Plan for a month trial of daily treatment followed by re-evaluation. Ordered: Office Visit Level 4 Est 87255 2. S easonal allergy Noel Anderson MD, MPH Extracted from:Title: [facility] [place] - URI, sinusitis Author: CRISSY JAQUEZ Date: 10/29/19 1. U pper respiratory infection 2. S inusitis t he treatment plan was explained to the patient. He should use his medication as directed. He will be given 24 hours SIQ. Orders: amoxicillin-clavulanate, amoxicillin (as trihydrate) 1 tab(s), Oral, every 12 hr, X 7 days, # 14 tab(s), 0 total refill(s), Acute, 11/05/2019, [facility] pharmacy dispense (Rx) [Not filled] dextromethorphan-guaifenesin, 10 mL, Oral, every 4 hr, PRN cough, # 120 mL, 0 total refill(s), Acute, 11/02/2019, [facility] pharmacy dispense (Rx) ibuprofen, 1 tab(s), Oral, every 8 hr, # 30 tab(s), 0 total refill(s), Acute, 11/03/2019, [facility] pharmacy dispense (Rx) [Not filled] oxymetazoline nasal, 3 spray(s), Nostril-Both, BID, # 15 mL, 0 total refill(s), Acute, [facility] dispense (Rx) [Not filled] Office Visit Level 3 Est 85450 Extracted from:Title: Ambulatory Patient Education Author: NATHALY [...] Reviewed: 01/14/2015 ExitCare Patient Information 2 015 payByMobile. This information is not intended to replace advice given to you by your health care provider. Make sure you discuss any questions you have with your health care provider. Extracted from:Title: [facility] Therapist OP Initial Visit Note Author: YASHIRA MAGALLON Date: 07/18/19 1. A djustment disorder with mixed anxiety and depressed mood Orders: Psychiatric Diagnostic Evaluation 81370 Clinical Global Impression: Moderately Ill (4) Patient [...] medicaiton Treatment Planning/Recommendations: Duty Status: T his director of services is considered psychologically F IT f or [...] is Dr. Yashira Magallon, Clinical Psychologist at [phone] Yashira Magallon, PhD Clinical Psychologist [facility] Extracted from:Title: Ambulatory Patient Education Author: SAHIL [...] with coughing. HOME CARE INSTRUCTIONS Only take dxbp-ewn-bzrbbhy or prescription medicines for pain, discomfort, diarrhea, [...] 07/19/2006 Document Revised: 12/31/2012 Document Reviewed: 02/13/2012 [facility] Patient Information 2 015 payByMobile. This information is not intended to replace [...] Reviewed: 03/07/2012 ExitCare Patient Information 2 015 payByMobile. This information is not intended to replace [...] 10/09/2006 Document Revised: 12/31/2012 Document Reviewed: 03/07/2012 [facility] Patient Information 2 015 payByMobile. This information is not intended to replace [...] with coughing. HOME CARE INSTRUCTIONS Only take kiex-cnt-spcdrmj or prescription medicines for pain, discomfort, diarrhea, [...] Reviewed: 02/13/2012 ExitCare Patient Information 2 015 payByMobile. This information is not intended to replace advice given to you by your health care provider. Make sure you discuss any questions you have with your health care provider. 12/10/2024 [facility] Functional Status Combined list of recent functional and cognitive assessments recorded at [facility] [employer] [facility] (VA[facility]VA Functional [place] Measurement (FIM) Scale: 1 = Total Assistance (Subject = 0% +), 2 = Maximal Assistance (Subject = 25% +), 3 = Moderate Assistance (Subject = 50% +), 4 = Minimal Assistance (Subject = 75% +), 5 = Supervision, 6 = Modified [place] (Device), 7 = Complete [place] (Timely, Safely). Assessment Date/Time Source Assessment Type Assessment Skill Assessment Score Assessment Details FUNCTIONAL 08/27/20H ome Equipment Crutches 08/27/20Living Situation Home independently 07/29/20Ability to Read/Write Able to read, Able to write 10/28/19Home Dietary Supplements Captured Unable to obtain
--- NOTE | 2024-12-10 09:31 | ED.LOWEXIN ---
HPI - Extremity Injury (Lower) General Chief Complaint: Extremity Injury, Lower Stated Complaint: R ankle pain Time Seen by Provider: 12/10/24 08:17 Source: patient Mode of arrival: ambulatory Limitations: no limitations History of Present Illness HPI Narrative: 34-year-old otherwise healthy, here with the complaints of right ankle pain since last night. Patient states that he was playing basketball felt a pop while playing. He also states that he called his primary doctor recommended to go to the ER. He has no other injuries or complaints at this time. MD complaint: ankle injury (right) Onset (ago): day(s) (1) Type of Injury: unknown Place: street/outdoors Severity: mild Relieving factors: nothing Exacerbating factors: weight bearing Associated symptoms: snap/pop sensation Other symptoms: none Related Data Home Medications ?Medication ?Instructions ?Recorded ?Confirmed ?Last Taken ?Type buspirone 10 mg tablet 5 mg PO BID 10/30/24 11/25/24 Unknown History trazodone 50 mg tablet 50 mg PO QHS 10/30/24 11/25/24 Unknown History venlafaxine 75 mg capsule,extended 75 mg PO DAILY 11/25/24 11/25/24 Unknown History release 24 hr Allergies Allergy/AdvReac Type Severity Reaction Status Date / Time morphine Allergy Mild Nausea Verified 12/10/24 08:20 mushrooms Allergy Unknown unknown Uncoded 12/10/24 08:20 Review of Systems Review of Systems: All systems reviewed & are unremarkable except as noted in HPI and below Constitutional: Constitutional: Reports no additional constitutional complaints Eyes: Eyes: Reports no additional eye complaints ENT: Reports system reviewed and no additional complaints, except as documented Cardiovascular: Cardiovascular: Reports no additional cardiovascular complaints Respiratory: Respiratory: Reports no additional respiratory complaints Gastrointestinal: Gastrointestinal: Reports no additional gastrointestinal complaints Musculoskeletal: Musculoskeletal: Reports as per HPI [facility] Past Medical History Medical History Nausea Enteritis due to adenovirus Heart palpitations Family history of brain aneurysm Screening for lipoid disorders Hyperglycemia Screening for metabolic disorder Encounter to establish care New onset of headaches COVID-19 Scrotal pain Otitis media Anxiety Asthma Sprain of medial collateral ligament of left knee Surgical History Surgical History History of dental surgery History of foot surgery (~08/2020) History of repair of anterior cruciate ligament of right knee Family History Family History Sibling Depression Mother Depression Other Brain aneurysm Social History Social History Smoking status: Never smoker Alcohol intake: current Alcohol use details: Occasionally Substance use: never Substance use type: does not use Do You Feel Safe in your Home?: Yes Lack of Transportation: No Lack of Food: Never True Current Housing: I Have Housing Concerned About Future Housing: No Difficulty Paying Gas/Electric Bills: No Difficulty Paying for Meds: No Currently Unemployed: No Education: Bachelor's Degree Difficulty w/ Childcare or Family Care: No Occupation/Education: occupation Gender identity (if verbalized by the patient): Male Exam Narrative: GENERAL: Well-appearing, well-nourished, and in no acute distress. HEAD: Normocephalic, atraumatic. EYES: PERRLA and EOMI. NECK: Supple. CHEST: Clear to auscultation. No respiratory distress. HEART: Regular rate and rhythm. No murmur heard. Normal peripheral puls EXTREMITIES: Normal range of motion. No edema. SKIN: Warm, dry, no rash. NEURO: No focal deficits. Alert and oriented x3. PSYCH: Normal mood and affect. Course Course Emergency Course: Informed patient about his x-ray findings advised to continue wear his boot boot for now, take Tylenol ibuprofen for pain Vital Signs Vital signs: Vital Signs Temperature 36.8 C 12/10/24 08:17 Pulse Rate 68 12/10/24 08:17 Respiratory Rate 16 12/10/24 08:17 Blood Pressure 123/77 12/10/24 08:17 Pulse Oximetry 97 12/10/24 08:17 Oxygen Delivery Room Air 12/10/24 08:17 Temperature 36.8 C 12/10/24 08:17 Pulse Rate 68 12/10/24 08:17 Respiratory Rate 16 12/10/24 08:17 Blood Pressure 123/77 12/10/24 08:17 Pulse Oximetry 97 12/10/24 08:17 Oxygen Delivery Room Air 12/10/24 08:17 MDM - Extremity Injury (Lower) Imaging Data Radiologist's impression: ITS Impressions Ankle X-Ray 12/10/24 09:17 IMPRESSION: 1. No fracture. Discharge Plan Discharge Clinical Impression: Ankle sprain and strain Patient Disposition: Home, Self-Care Condition: Stable Instructions: Ankle Sprain (DC) Patient Language: Greenlandic Prescriptions: No Action albuterol sulfate 90 mcg/actuation HFA aerosol inhaler 2 inh inhalation Q4-6H PRN (Reason: shortness of breath or wheezing) Qty: 8.5 0RF buspirone 10 mg tablet 5 mg PO BID trazodone 50 mg tablet 50 mg PO QHS venlafaxine 75 mg capsule,extended release 24hr 75 mg PO DAILY omeprazole 40 mg capsule,delayed release(DR/EC) 40 mg PO DAILY 30 Days Qty: 30 2RF ondansetron 4 mg tablet,disintegrating 4 mg PO Q8H PRN (Reason: nausea and vomiting) Qty: 10 0RF Follow-up/Referrals: Ruth Bobo, GEOGRAPHIC AREA INTELLIGENCE OFFICER-C [Primary Care Provider] - Time of Disposition: 09:36
== END 2024-12-10 10:00 | disposition home or self-care (01) ==
PROVIDERS: Emergency Provider Family Medicine; PCP Clinical Nurse Specialist
DX: S93.401A Sprain of unspecified ligament of right ankle, initial encounter (principal); F41.9 Anxiety disorder, unspecified; J45.909 Unspecified asthma, uncomplicated; X50.0XXA Overexertion from strenuous movement or load, initial encounter
CPT/HCPCS: 73610; 99283

== ENCOUNTER 2025-06-16 00:41 | Day surgery (SDC) | payer BC, SELFPAY ==
[2025-06-03 14:00] VITALS: BMI 30.3
[2025-06-16 07:31] VITALS: BP 131/67; PULSE 69; RESP 18; TEMP 36.5; O2SAT 99; BMI 30.4
--- NOTE | 2025-06-16 07:45 | WPDANESEPPF ---
Anes - Initial Pre Proc Eval Procedure: Operation Date: 06/16/25 09:00 Proposed Procedures p Colonoscopy - Melo Orozco MD Date/Time: 06/16/25 07:45 Surgeon: Melo Orozco MD Pre Op Diagnosis: Abnormal findings on diagnostic imaging of other p Patient Data Age: 35 Gender: M Height: 1.85 m Weight: 104.6 kg Last Vital Signs Temp 36.5 C 06/16/25 07:31 Pulse 69 06/16/25 07:31 Resp 18 06/16/25 07:31 BP 131/67 06/16/25 07:31 Pulse Ox 99 06/16/25 07:31 O2 Del Method Room Air 06/16/25 07:31 Allergies Allergy/AdvReac Type Severity Reaction Status Date / Time morphine Allergy Mild Nausea Verified 06/16/25 07:30 mushrooms Allergy Unknown unknown Uncoded 06/16/25 07:30 Home Medications ?Medication ?Instructions ?Recorded ?Confirmed ?Type albuterol sulfate 90 mcg/actuation 2 inh inhalation Q4-6H PRN 05/31/24 06/03/25 Rx aerosol inhaler shortness of breath or wheezing #8.5 grams buspirone 10 mg tablet 5 mg PO BID 10/30/24 06/03/25 History trazodone 50 mg tablet 50 mg PO QHS 10/30/24 06/16/25 History Patient hx anesthesia problems: none Family hx anesthesia problems: none Results Review: All pre-operative results and documents have been reviewed as part of the pre-operative evaluation. [facility] Past Medical History Medical History (Updated 03/20/25 @ 18:02 by Lorie Nieto, PHARMACY INFORMATICS MANAGER-C) Right-sided back pain Abnormal CT scan, gastrointestinal tract Loose stools Right lower quadrant pain Nausea Enteritis due to adenovirus Heart palpitations Family history of brain aneurysm Screening for lipoid disorders Hyperglycemia Screening for metabolic disorder Encounter to establish care New onset of headaches COVID-19 Scrotal pain Otitis media Anxiety Asthma Sprain of medial collateral ligament of left knee Surgical History Surgical History History of dental surgery History of foot surgery (~08/2020) History of repair of anterior cruciate ligament of right knee Family History Family History Sibling Depression Mother Depression Other Brain aneurysm Social History Social History Smoking status: Never smoker Alcohol intake: current Alcohol use details: 3 per month Substance use: never Substance use type: does not use Do You Feel Safe in your Home?: Yes Lack of Transportation: No Lack of Food: Never True Current Housing: I Have Housing Concerned About Future Housing: No Difficulty Paying Gas/Electric Bills: No Difficulty Paying for Meds: No Currently Unemployed: No Education: Bachelor's Degree Difficulty w/ Childcare or Family Care: No Living arrangements: with family Occupation/Education: occupation Gender identity (if verbalized by the patient): Male Spiritual care concerns: No Anes - Eval Final PreProcedure Day of Procedure 06/16/25 07:45 Patient weight: obese Heart: regular rate and rhythm Lungs: clear to auscultation Airway: Mallampati scale class II Neurological: alert and oriented Last oral intake: >/= 8 hours ASA classification: II Emergent: no Anesthetic plan: proceed Anesthesia type and monitoring: general GIVS and standard monitoring Results Review: All pre-operative results and documents have been reviewed as part of the pre-operative evaluation. Informed Consent: The patient's anesthetic plan and its attendant risks and benefits were discussed with the patient/family/POA. Questions were solicited and answers provided to the satisfaction of the patient/family/POA.
[2025-06-16] MEDS: LACTATED RINGERS 1,000 ML 150 ML IV CONT (07:46)
--- NOTE | 2025-06-16 08:31 | PM.HPGS ---
History of Present Illness History of Present Illness Consent: Risks, benefits, and alternatives have been discussed and questions answered. Patient agrees to proceed with procedure. Chief complaint: Abnormal findings on diagnostic imaging of other p Narrative: Ky Grayson is a 35 year old male here for first colonoscopy, had brief episode of loose stools now back to his baseline. Review of Systems Review of Systems: All systems reviewed & are unremarkable except as noted in HPI and below PMFSH Past Medical History Medical History (Updated 03/20/25 @ 18:02 by CURLY Valdivia) Right-sided back pain Abnormal CT scan, gastrointestinal tract Loose stools Right lower quadrant pain Nausea Enteritis due to adenovirus Heart palpitations Family history of brain aneurysm Screening for lipoid disorders Hyperglycemia Screening for metabolic disorder Encounter to establish care New onset of headaches COVID-19 Scrotal pain Otitis media Anxiety Asthma Sprain of medial collateral ligament of left knee Surgical History Surgical History History of dental surgery History of foot surgery (~08/2020) History of repair of anterior cruciate ligament of right knee Family History Family History Sibling Depression Mother Depression Other Brain aneurysm Social History Social History Smoking status: Never smoker Alcohol intake: current Alcohol use details: 3 per month Substance use: never Substance use type: does not use Do You Feel Safe in your Home?: Yes Lack of Transportation: No Lack of Food: Never True Current Housing: I Have Housing Concerned About Future Housing: No Difficulty Paying Gas/Electric Bills: No Difficulty Paying for Meds: No Currently Unemployed: No Education: Bachelor's Degree Difficulty w/ Childcare or Family Care: No Living arrangements: with family Occupation/Education: occupation Gender identity (if verbalized by the patient): Male Spiritual care concerns: No Meds Home Medications and Allergies Home Medications ?Medication ?Instructions ?Recorded ?Confirmed ?Type albuterol sulfate 90 mcg/actuation 2 inh inhalation Q4-6H PRN 05/31/24 06/03/25 Rx aerosol inhaler shortness of breath or wheezing #8.5 grams buspirone 10 mg tablet 5 mg PO BID 10/30/24 06/03/25 History trazodone 50 mg tablet 50 mg PO QHS 10/30/24 06/16/25 History Allergies Allergy/AdvReac Type Severity Reaction Status Date / Time morphine Allergy Mild Nausea Verified 06/16/25 07:30 mushrooms Allergy Unknown unknown Uncoded 06/16/25 07:30 Vital Signs Vital Signs - 24 hr 06/16/25 07:31 Temperature 97.7 F Pulse Rate 69 Respiratory Rate 18 Blood Pressure 131/67 Pulse Oximetry 99 Oxygen Delivery Room Air Exam Const: General: comfortable and no acute distress HENMT: Face/Nose/Sinus: Normal nares present Eyes: General: appearance normal, both eyes and all related structures Neck: Neck: no JVD Resp: Auscultation: clear to auscultation bilaterally Cardio: Rate: regular rate Rhythm: regular rhythm GI: Inspection: non-distended GI Palp: Yes Soft to palpation Skin: General skin exam: normal color Neuro: Speech: normal speech Extrem: General: normal to inspection Psych: Mental Status: mental status grossly normal Assessment and Plan Assessment and plan (1) Loose stools: Code(s): R19.5 - Other fecal abnormalities Status: Acute Assessment and Plan: colonoscopy
[2025-06-16 08:48] VITALS: BP 97/53; PULSE 62; RESP 14; O2SAT 97
[2025-06-16 08:58] VITALS: BP 100/51; PULSE 57; RESP 13; O2SAT 97
[2025-06-16 09:08] VITALS: BP 102/62; PULSE 58; RESP 14; O2SAT 98
== END 2025-06-16 09:11 | disposition home or self-care (01) ==
PROVIDERS: PCP Clinical Nurse Specialist; Visit Provider Internal Medicine Gastroenterology
PROC: 0DJD8ZZ Inspection of Lower Intestinal Tract, Via Natural or Artificial Opening Endoscopic (ICD-10-PCS; CPT 45378; principal; 2025-06-16 09:00)
DX: R19.5 Other fecal abnormalities (principal); J45.909 Unspecified asthma, uncomplicated; R73.9 Hyperglycemia, unspecified; F41.9 Anxiety disorder, unspecified; R00.2 Palpitations; E66.9 Obesity, unspecified; Z68.30 Body mass index [BMI] 30.0-30.9, adult; Z98.890 Other specified postprocedural states; Z79.51 Long term (current) use of inhaled steroids
CPT/HCPCS: 45378; J2003; J2704; J7120